=== PATIENT | male | born 1945 | race Caucasian/White ===

== ENCOUNTER 2017-07-03 15:13 | Inpatient (IN) | payer MEDICARE, SELFPAY ==
[2017-07-03] VITALS (13 sets, daily range): BP systolic 125–152; BP diastolic 70–80; PULSE 102–111; RESP 18–34; TEMP 37.2–37.7; O2SAT 85–96; BMI 33.0; BMI 32.4
--- NOTE | 2017-07-03 15:21 | RAD_ITS ---
STUDY: X-RAY CHEST REASON FOR EXAM: Male, 71 years old. Fall TECHNIQUE: Single frontal view of the chest. COMPARISON: 05/23/2015 FINDINGS: The lungs are clear and expanded. There is no demonstrated pleural abnormality. Normal size heart. Normal mediastinum and alfonso. Normal visualized pulmonary arteries. Normal visualized aortic arch and descending thoracic aorta. Normal visualized thoracic spine. Normal visualized ribs, clavicles, and shoulders. There is no demonstrated abnormality of the visualized soft tissue structures of the upper abdomen. RAD/Chest 1 View (Portable) IMPRESSION: Normal x-ray examination of the chest. Electronically Signed: Wayne Soria MD at 15:48 EDT Tel , Service support ,
--- NOTE | 2017-07-03 15:22 | EKG12_ITS ---
Test Reason : Blood Pressure : / mmHG Vent. Rate : 109 BPM Atrial Rate : 109 BPM P-R Int : 196 ms QRS Dur : 100 ms QT Int : 328 ms P-R-T Axes : 068 -73 054 degrees QTc Int : 441 ms Sinus tachycardia with occasional Premature ventricular complexes Left axis deviation Abnormal ECG Confirmed by SHAWANDA BLANC, MARILYN ([id number]), editor publications REBEKAH MAYS ([id number]) on 07/07/2017 1:17:24 PM Referred By: GRANT/CAT Confirmed By:MARILYN MAYBERRY MD
--- NOTE | 2017-07-03 15:28 | RAD_ITS ---
STUDY: X-RAY - PELVIS REASON FOR EXAM: Male, 71 years old. Fall. TECHNIQUE: One view of the pelvis was obtained. COMPARISON: None. FINDINGS: There is a non-specific bowel gas pattern. Normal visualized soft tissue structures. Normal bilateral iliac wings, sacroiliac joints and visualized sacrum. Normal visualized bilateral superior and inferior pubic rami. Normal pubic symphysis. Normal ischial tuberosities. Satisfactory appearance of right hip arthroplasty although the entire femoral stem is not seen. Normal visualized left femoral head. Normal left acetabulum. Normal left hip joint. RAD/Pelvis 1 or 2 Views IMPRESSION: No acute abnormality. Electronically Signed: Isaak Mario MD at 17:00 EDT , Service support ,
--- NOTE | 2017-07-03 15:28 | CT_ITS ---
STUDY: CT CERVICAL SPINE WITHOUT CONTRAST REASON FOR EXAM: Male, 71 years old. Fall. RADIATION DOSAGE (If Supplied By Facility): CTDIvol = ( 26.87 ) mGy, DLP = ( 602.34 ) mGycm TECHNIQUE: High resolution transaxial imaging was performed without contrast material. Sagittal and coronal images were reconstructed. Individualized dose optimization techniques were used for this CT. COMPARISON: None FINDINGS: Exam is limited by motion. No definite acute fracture/dislocation. The cervical junction is intact. C1-C2 articulation is intact. There is straightening. There is normal alignment. Facet joints are intact at all levels bilaterally. No jumped facets. There is mild multilevel spondyloarthropathy. Multilevel mild degenerative disc disease seen. Multilevel mild loss of disc height. Multilevel posterior marginal osteophytes and disc bulges. Multilevel neural foraminal narrowing. Visualized paraspinal soft tissues and structures are unremarkable. CT/Spine Cervical without Contras IMPRESSION: Limited by patient movement. There is no definite acute fracture/dislocation. Degenerative changes. Electronically Signed: Isaak Mario MD at 16:59 EDT , Service support ,
--- NOTE | 2017-07-03 15:28 | CT_ITS ---
STUDY: CT BRAIN WITHOUT CONTRAST REASON FOR EXAM: Male, 71 years old. Fall. RADIATION DOSAGE (If Supplied By Facility): CTDIvol = ( 44.99 ) mGy, DLP = ( 863.60 ) mGycm TECHNIQUE: Transaxial CT imaging of the brain was performed without administration of intravenous contrast material. Individualized dose optimization techniques were used for this CT. COMPARISON: None. FINDINGS: Normal soft tissue structures. Normal calvarium. Normal size ventricles and extra-axial spaces for the patient's age. Normal white matter tracts of the cerebral hemispheres. Normal basal ganglia and thalami. Normal brainstem. Normal cerebellum. There is no intracranial hemorrhage. There are no findings of an acute ischemic infarction. Normal visualized paranasal sinuses. CT/Brain/Head without Contrast IMPRESSION: Normal unenhanced CT scan of the brain. Electronically Signed: Isaak Mario MD at 16:56 EDT , Service support ,
--- NOTE | 2017-07-03 15:29 | ED.VISSUMM ---
- ER Visit Summary Date of Service: 07/03/17 Chief Complaint: Fall History of Present Illness: The patient is a 71 M presenting after fall. Patient states he slid out of bed on Friday night. He was stuck between his bed and the wall. He was unable to get up. He laid on the floor for 2 days. He states his brother came to check on him today and called EMS. He states he did urinate on himself because he was unable to get up. Denies any injury with the fall. Denies chest pain. Physical Examination: Vitals are stable. Temperature 99.2 alert no acute distress. Pulse ox 85% on room air HEENT exam dry mucous membranes Neck is mild diffuse tenderness Lungs are diminished bilaterally. Heart is regular rate and rhythm. Abdomen is soft nontender nondistended. No rebound or guarding Extremities are unremarkable. Skin is warm and dry. No focal neurologic deficit. Remainder of exam is unremarkable. Emergency Department Course and Treatment: EKG is sinus rate of 109 with PVCs. Chest x-ray shows no acute process. CBC shows white count 13.4, hemoglobin 12.0. BUN is 33. Troponin is indeterminate 0.22. CK is 3511. Lactic acid is normal. Patient is given IV fluids. Pelvis x-ray shows no acute process. CT head and neck show no acute process. Discussed with the hospitalist for admission. Disposition: Admission Impression: Generalized weakness, indeterminate troponin, rhabdomyolysis This note was generated with [employer] dictation software. It may contain incorrect words, spelling, and punctuation that were not noted in review of the chart prior to signing ED Disposition - Plan for ED Patient: Chief Complaint: Fall Referrals: [facility] Doctor,Out of [Primary Care Provider] -
[2017-07-03 16:13] LABS: Anion Gap 8 (5-15); BUN 33 mg/dL (7-18); BUN/Creat Ratio 31.1 RATIO (10-20); Calcium,Total 8.5 mg/dL (8.5-10.1); Chloride 101 mmol/L (98-107); Creatinine, Serum 1.06 mg/dL (0.70-1.30); EST Glomerular Filtration Rate 73 mL/min (>60); Est Glom Filt Rate - Afr Amer 89 mL/min (>60); Estimated Creatinine Clearance 67.91 ml/min; Glucose 102 mg/dL (74-106); Potassium 3.7 mmol/L (3.5-5.1); Sodium Level 137 mmol/L (136-145)
[2017-07-03 16:20] LABS: Lactic Acid 1.5 mmol/L (0.4-2.0)
[2017-07-03 16:22] LABS: Bacteria 0 SEEN /hpf (None Seen); Mucous, Urine 0 SEEN /hpf (<or=2+); White Blood Cells 0 SEEN /hpf (0-5)
[2017-07-03 16:25] LABS: Color, Urine Yellow (Yellow); Glucose, Dipstick Normal (Normal); Ketone-Dipstick Negative (Negative); Leukocyte Esterase-Dipstick Negative /ul (Negative); Nitrite-Dipstick Negative (Negative); Occult Blood-Urine 250 /ul (Negative); Protein-Dipstick 100 mg/dl (Negative); Specific Gravity, Urine 1.025 (1.002-1.030); Urine Bilirubin Dipstick Negative (Negative); Urine Clarity Sl. Cloudy (Clear); Urine Urobilinogen Normal (Normal)
[2017-07-03 16:27] LABS: CPK Total, Creatine Kinase 3511 U/L (39-308)
[2017-07-03 16:30] LABS: Absolute Lymphocyte Count 1.86 X10^3/ul (0.83-4.51); Basophil# 0.05 X10^3/uL; Basophil% 0.4 % (0-1); Hematocrit 38.5 % (40-54); Lymphocyte # 1.86 X10^3/ul (4.0); Lymphocyte % 13.8 % (19-41); Mean Corp Hgb Conc 31.2 g/gl (32-36); Mean Corpuscular Hgb 23.1 pg (27.0-32.0); Mean Corpuscular Volume 74.2 fL (80-94); Mean Platelet Vol. 10.3 fl (6.2-12.0); Monocyte# 1.53 X10^3/uL; Monocyte% 11.4 % (0-10); Neutrophil # 9.97 X10^3/uL (2.7-7.7); Neutrophil % 74.3 % (47-70); Platelet Count 315 K/mm3 (150-450); RBC Distribution Width CV 19.1 % (11.6-14.6); RBC Distribution Width SD 49.7 fl (35.1-43.9); Red Blood Count 5.19 M/mm3 (4.6-6.2); White Blood Count 13.4 K/mm3 (4.4-11.0)
[2017-07-03 16:31] LABS: Differential Indicated SCAN CRITERIA MET; POSITIVE COUNT NO; POSITIVE DIFFERENTIAL YES; POSITIVE MORPHOLOGY NO
[2017-07-03 16:48] LABS: Red Blood Cells-Urine 5-10 SEEN /hpf (0-5); Squamous Epithelial Cells - UA 0-5 SEEN /hpf (0-5)
[2017-07-03 16:49] LABS: Amorphous Sediment 1+ URATE
--- NOTE | 2017-07-03 17:06 | PCM.HP.STD ---
Problem List (1) Abnormal CT of the chest Status: Chronic (2) Chronic back pain Status: Chronic (3) Hemolytic anemia Status: Chronic (4) Right acetabular fracture Status: Resolved (5) Depression Status: Chronic (6) Hypertension Status: Chronic (7) Hypothyroid Status: Chronic (8) Osteoporosis Status: Chronic History of Present Illness Date of Admission: 07/03/17 Chief Complaint: Weakness, fall. The patient is a 71 year old M who presents to the emergency room after patient's brother found him on the floor in his bedroom. Patient states Friday or Friday night he was going to bed and somehow missed the bed and fell on the floor and between the wall in bed. He was too weak to get himself up. His brother stopped by to visit today and found him in the same position following his fall. Patient states he has had ongoing progressive weakness since previous admission in 2015 where he had mechanical fall which resulted in right hip fracture. Patient's brother at bedside states patient is unable to care for himself properly. Concerned about patient returning home. Discussed with patient possible need for rehab/SNF at discharge and patient states he will refuse. Wishes to return home. Patient has chronic cough. He is pack per day smoker. He states he is chronically short of breath as well. Aside from generalized weakness, patient denies any significant complaints. CODE STATUS discussed with patient and he wishes to be a full code and states he wants everything done. His past medical history includes hypertension, hypothyroidism, BPH, osteoporosis, depression, chronic anemia, COPD, diastolic CHF. Past Medical History Past Medical History (Chronic Problems): Chronic Problems Abnormal CT of the chest (Chronic) Hemolytic anemia (Chronic) Chronic back pain (Chronic) Osteoporosis (Chronic) Depression (Chronic) Hypothyroid (Chronic) Hypertension (Chronic) Allergies acyclovir Allergy (Verified 12/05/15 13:25) Swelling doxycycline Allergy (Verified 12/07/15 13:57) MAKES ME [employer]NG gabapentin Allergy (Verified 12/05/15 13:25) Swelling Home Medications: Ambulatory Orders Medication Instructions Recorded Multivitamins,Therapeutic 1 tablet PO DAILY 05/21/15 [Multivitamin] Cholecalciferol (VIT D3) [Vitamin 2,000 unit PO DAILY 12/05/15 D] Furosemide [Lasix] 40 mg PO DAILY 12/05/15 Hydrocodone/Acetaminophen 1 each PO Q6H PRN PRN 12/05/15 [Hydrocodon-Acetaminophen 5-325] Ibuprofen [Motrin] 400 mg PO Q6H PRN PRN 12/05/15 Finasteride [Proscar] 5 mg PO DAILY 07/03/17 Levothyroxine Sodium [Synthroid] 150 mcg PO DAILY 07/03/17 Surgical History: cholecystectomy, - - spleenectomy 1969, bilateral cataract, right hip repair Psychiatric History: Depression Lives: Alone Smoking Status: Current every day smoker Tobacco Use: Cigarettes - 1 pack per day Alcohol: Rare Drugs: None - *Family History Maternal History Items: Heart Disease - CHF, - - osteoarthritis Paternal History Items: Stroke - Brain aneurysm, - - hemolytic anemia, black lung diesase, coal conveyor operator Sibling History Items: Hypertension, Pulmonary Disease Review of Systems Constitutional: Reports: Fatigue. Denies: Chills, Fever Eyes: Reports: Blurred vision - Chronic HEENT: Denies: Head Aches, Sinus Congestion, Sinus Drainage Cardiovascular: Denies: Chest Pain, Edema, Palpitations, Syncope Respiratory: Reports: Cough - Chronic, Shortness of Breath, Wheezing. Denies: Sputum production Gastrointestinal: Denies: Abdominal Pain, Constipation, Diarrhea, Nausea, Vomiting Genitourinary: Denies: Dysuria Musculoskeletal: Reports: Joint stiffness. Denies: Joint Pain, Joint Tenderness Skin: Reports: Dryness - Chronic, bilateral lower extremities Neurological: Denies: Numbness, Tingling, Focal weakness Psychiatric: Reports: Depression Hematologic/ Lymphatic: Denies: Easy Bruising, Easy Bleeding VTE Information - Inpt Only VTE Present on Admission: No VTE Mechan Device Prophylaxis: SCD's VTE Pharm Prophylaxis ordered?: Yes - Physical Exam General: Alert, Oriented x3, Cooperative, - - Appears unkempt HEENT: - - Erythema of sclera bilaterally Oral: Dry Mucosa, - - Poor dentition Neck: Supple, No JVD, Negative Carotid Bruits Lungs: Diminished, Rhonchi, Wheezes Cardiovascular: Regular Rhythm, Normal S1, Normal S2, No murmurs, Tachycardic Abdomen: Bowel Sounds Present, Soft, Non Tender, Non-Distended Extremities: No clubbing, No cyanosis, No edema, Capillary Refill Less than 3 Seconds Skin: No rashes, No breakdown, - - Dryness bilateral lower extremities Musculoskeletal: No Tenderness to Palpation of Joints or Extremities Neurological: Cranial nerves II-XII grossly intact Psych/Mental Status: Normal Affect, Appropriate Vital Signs Temp Pulse Resp BP Pulse Ox 99.2 F H 108 H 30 H 141/80 H 94 07/03/17 15:14 07/03/17 16:00 07/03/17 16:00 07/03/17 16:00 07/03/17 16:01 Oxygen Flow Rate (L/min) 4 Oxygen Delivery Method Nasal Cannula Weight: 104.326 kg Body Mass Index (BMI) 33.0 Laboratory Tests Past 24 Hrs 07/03/17 07/03/17 07/03/17 15:35 15:35 15:35 WBC 13.4 H RBC 5.19 Hgb 12.0 L Hct 38.5 L MCV 74.2 L MCH 23.1 L MCHC 31.2 L RDW 19.1 H RDW Differential 49.7 H Plt Count 315 MPV 10.3 Immature Gran % (Auto) 0.100 Neut % (Auto) 74.3 H Lymph % (Auto) 13.8 L [place] % (Auto) 11.4 H Eos % (Auto) 0.0 Baso % (Auto) 0.4 Absolute Neuts (auto) 10.0 H Absolute Lymphs (auto) 1.86 Total Counted Pending Sodium 137 Potassium 3.7 Chloride 101 Carbon Dioxide 28.0 Anion Gap 8 BUN 33 H Creatinine 1.06 Estim Creat Clear Calc 67.91 Est GFR (MDRD) Af Amer 89 Est GFR (MDRD) Non-Af 73 BUN/Creatinine Ratio 31.1 H Glucose 102 Lactic Acid 1.5 Calcium 8.5 Total Creatine Kinase Troponin I 0.22 H Urine Color Urine Clarity Urine pH Ur Specific [place] Urine Protein Urine Glucose (UA) Urine Ketones Urine Occult Blood Urine Nitrite Urine Bilirubin Urine Urobilinogen Ur Leukocyte Esterase Urine RBC Urine WBC Ur Squamous Epith Cells Amorphous Sediment Urine Bacteria Urine Mucus 07/03/17 07/03/17 15:35 16:15 WBC RBC Hgb Hct MCV MCH MCHC RDW RDW Differential Plt Count MPV Immature Gran % (Auto) Neut % (Auto) Lymph % (Auto) [place] % (Auto) Eos % (Auto) Baso % (Auto) Absolute Neuts (auto) Absolute Lymphs (auto) Total Counted Sodium Potassium Chloride Carbon Dioxide Anion Gap BUN Creatinine Estim Creat Clear Calc Est GFR (MDRD) Af Amer Est GFR (MDRD) Non-Af BUN/Creatinine Ratio Glucose Lactic Acid Calcium Total Creatine Kinase 3511 H Troponin I Urine Color Yellow Urine Clarity Sl. Cloudy Urine pH 5.0 Ur Specific [place] 1.025 Urine Protein 100 H Urine Glucose (UA) Normal Urine Ketones Negative Urine Occult Blood 250 H Urine Nitrite Negative Urine Bilirubin Negative Urine Urobilinogen Normal Ur Leukocyte Esterase Negative Urine RBC 5-10 SEEN Urine WBC 0 SEEN Ur Squamous Epith Cells 0-5 SEEN Amorphous Sediment 1+ URATE Urine Bacteria 0 SEEN Urine Mucus 0 SEEN Assessment/Plan 1. Acute rhabdomyolysis-secondary to lying on for for 2-3 days. CK on admission 3511. IV fluids. Trend CK. 2. Mechanical fall, prior to admission/physical debility/weakness-denies injury from fall. Patient has history of falls. Lives home alone. PT/OT. UA unremarkable. Low-grade temperature on admission. WBC mildly elevated, 13.2. Chest x-ray unremarkable. Patient shows signs of mild dehydration. IV fluids as noted above. CT of cervical spine shows no acute fracture or dislocation. X-ray of pelvis shows no acute abnormality. Brain CT normal. Case management consult for discharge planning. Fall precautions. 3. Indeterminate troponin-troponin 0.22 on admission. EKG sinus rhythm without ST T changes. Trend enzymes. Repeat EKG in a.m. Patient denies chest pain. 4. Acute hypoxia, suspect secondary to underlying COPD-patient has had episodes of hypoxia in the past during admission which were noted due to chronic lung disease. Chest CTA May 2015 showed pulmonary emphysema. Patient has never had any formal testing for COPD. Repeat CTA. Continue supplemental oxygen to maintain O2 at or above 90%. Albuterol and DuoNeb aerosols. IS/PEP. HOB parameters. Chest x-ray unremarkable as noted above. 5. 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 6. Chronic diastolic CHF-hold home Lasix regimen given mild dehydration. Previous echocardiogram May 2015 showed an ejection fraction of 50%, mild tricuspid valve insufficiency. Left ventricular systolic function lower limits of normal. Repeat echocardiogram. 7. BPH-continue home Proscar regimen. 8. Chronic hemolytic anemia-status post splenectomy. Stable. 9. Hypothyroidism-continue home Synthroid regimen. Check TSH. 10. Tobacco dependence-current pack per day smoker. Patient has no plans of quitting. Encourage smoking cessation. Nicotine replacement patch if desired. 11. Osteoporosis-history of vertebral compression fractures. Continue vitamin D supplementation. 12. Depression-patient is very unkempt. Not on home regimen. Recommend outpatient follow-up. DVT prophylaxis-SCDs, Lovenox subcu. This patient was seen by RUSLAN Le under the supervision of Dr. Bonner.
[2017-07-03 17:32] LABS: Differential Comment SCANNED
[2017-07-03 17:33] LABS: Absolute Nucleated RBC Count 0.41 10^3/uL (0-5)
[2017-07-03] MEDS: 0.9% Normal Saline 1,000 ML 999 ML IV (17:37)
[2017-07-03 19:00] LABS: Magnesium 2.4 mg/dL (1.6-2.6); Thyroid Stim Hormone (TSH) 4.62 uIU/mL (0.358-3.74)
[2017-07-03 19:05] LABS: D-Dimer Quantitative (DVT/PE) 1.45 FEU/ug/m (0.27-0.49)
--- NOTE | 2017-07-03 19:48 | CT_ITS ---
STUDY: CTA CHEST REASON FOR EXAM: Male, 71 years old. Hypoxia and fall RADIATION DOSAGE (If Supplied By Facility): CTDIvol = ( 22.94 ) mGy, DLP = ( 974.90 ) mGycm TECHNIQUE: The examination was performed with the intravenous administration of 100 ml of Isovue 370 contrast material. Post-processing of the angiographic images was performed, with multiplanar reformation and 3D reconstruction. Individualized dose optimization techniques were used for this CT. COMPARISON: July 03, 2017 chest radiograph FINDINGS: A few scattered nonenlarged mediastinal lymph nodes seen. Gynecomastia also appreciated. Nonenlarged axillary lymph nodes. Pulmonary artery and its branches demonstrate no definite evidence for filling defects to suggest pulmonary embolus. Coronary vascular calcifications. Atherosclerotic vascular calcifications of the aorta. No pericardial effusion. No lung consolidation or pneumothorax Prior cholecystectomy Hepatic steatosis The spleen is not visualized Nodular density noted adjacent to the stomach possibly a splenule however this is not well characterized on the current CT examination of the chest. Degenerative changes in the thoracic spine with compression fractures of a T11 and T12 vertebral body with mild retropulsion of the posterior superior cortex of T12 vertebral body of indeterminate age. Mild compression deformity of the T8 vertebral body also seen. Mild L1 compression deformity also seen Subsegmental atelectasis in the lung bases. Ill-defined nodule in the right lower lobe measuring approximately 5 mm which needs follow-up assessment in 3-6 months. There are likely bilateral emphysematous changes present. IMPRESSION: No definite evidence for pulmonary embolus. No evidence for aortic dissection. compression fractures of a T11 and T12 vertebral body with mild retropulsion of the posterior superior cortex of T12 vertebral body of indeterminate age possibly acute. Approximately 50% loss of vertebral body height at T12 level noted Mild compression deformity of the T8 vertebral body also seen. COPD Ill-defined nodule in the right lower lobe measuring approximately 5 mm which needs follow-up assessment in 3-6 months. There are likely bilateral emphysematous changes present. Electronically Signed: Brayan Lewis, at 20:57 EDT Tel , Service support , CT/CTA Chest W/WO Contrast
[2017-07-03] MEDS: Famotidine 20 MG Tablet PO (21:35)
[2017-07-03] MEDS: Senna/Docusate Sodium 1 Tablet 2 TABLET PO (21:35)
[2017-07-03] MEDS: MethylPREDNISolone 125 MG/2 ML Vial 60 MG IV (21:36)
[2017-07-03] MEDS: 0.9% Normal Saline 1,000 ML 150 ML IV (21:36)
[2017-07-03 21:54] LABS: T4 Free Direct 0.74 ng/dL (0.76-1.46)
[2017-07-03] MEDS: Ipratropium/Albuterol Sulfate 3 ML AMPUL.NEB INHALATION (21:54)
[2017-07-04] VITALS (20 sets, daily range): BP systolic 115–143; BP diastolic 57–83; PULSE 86–102; RESP 16–28; TEMP 36.3–37.8; O2SAT 93–96
[2017-07-04] MEDS: Ipratropium/Albuterol Sulfate 3 ML AMPUL.NEB INHALATION ×5 (00:54→18:58)
[2017-07-04] MEDS: 0.9% Normal Saline 1,000 ML 150 ML IV (04:37)
[2017-07-04 05:49] LABS: Hematocrit 38.7 % (40-54); Hemoglobin 11.9 g/dl (13.0-16.5); Mean Corp Hgb Conc 30.7 g/gl (32-36); Mean Corpuscular Hgb 23.3 pg (27.0-32.0); Mean Corpuscular Volume 75.7 fL (80-94); Mean Platelet Vol. 9.9 fl (6.2-12.0); Platelet Count 281 K/mm3 (150-450); RBC Distribution Width CV 19.3 % (11.6-14.6); RBC Distribution Width SD 52.3 fl (35.1-43.9); Red Blood Count 5.11 M/mm3 (4.6-6.2)
--- NOTE | 2017-07-04 05:55 | EKG12_ITS ---
Test Reason : MORNIG EKG Blood Pressure : / mmHG Vent. Rate : 090 BPM Atrial Rate : 090 BPM P-R Int : 192 ms QRS Dur : 100 ms QT Int : 358 ms P-R-T Axes : 058 -62 038 degrees QTc Int : 437 ms Normal sinus rhythm Left anterior fascicular block Abnormal ECG When compared with ECG of 03-JUL-2017 15:34, MANUAL COMPARISON REQUIRED, DATA IS UNCONFIRMED Confirmed by SHAWANDA BLANC, MARILYN ([id number]), editor managing newspaper REBEKAH MAYS ([id number]) on 07/07/2017 1:55:48 PM Referred By: MAURY Confirmed By:MARILYN MAYBERRY MD
[2017-07-04 06:02] LABS: Differential Indicated MANUAL DIFF; POSITIVE COUNT YES; POSITIVE DIFFERENTIAL NO; POSITIVE MORPHOLOGY YES
[2017-07-04] MEDS: 0.9% NaCl Peripheral Flush Adult/Peds IV ×2 (06:07→23:17)
[2017-07-04] MEDS: Levothyroxine 150 MCG Tablet PO (06:07)
[2017-07-04] MEDS: MethylPREDNISolone 125 MG/2 ML Vial 60 MG IV ×3 (06:07→23:16)
[2017-07-04 06:29] LABS: ALB/GLOB Ratio 0.9 RATIO (0.9-2.4); AST(SGOT) 130 U/L (15-37); Alanine Aminotransfer ALT/SGPT 74 U/L (16-61); Albumin, Serum 3.2 g/dL (3.2-5.0); Alkaline Phosphatase 44 U/L (45-117); Anion Gap 5 (5-15); BUN 24 mg/dL (7-18); BUN/Creat Ratio 30.9 RATIO (10-20); CPK Total, Creatine Kinase 3293 U/L (39-308); Calcium,Total 7.4 mg/dL (8.5-10.1); Chloride 105 mmol/L (98-107); Cholesterol 90 mg/dL (200); Creatinine, Serum 0.78 mg/dL (0.70-1.30); EST Glomerular Filtration Rate 105 mL/min (>60); Est Glom Filt Rate - Afr Amer 127 mL/min (>60); Estimated Creatinine Clearance 71.99 ml/min; Globulin 3.6 g/dL (2.2-4.2); Glucose 153 mg/dL (74-106); High Density Lipoprotein 34 mg/dL; Potassium 4.4 mmol/L (3.5-5.1); Protein, Total 6.8 g/dL (6.4-8.2); Sodium Level 137 mmol/L (136-145); Triglycerides 73 mg/dL; Very Low Density Lipoprotein 15 mg/dL (5-40)
[2017-07-04 07:07] LABS: Lymphocyte 6 % (19-41); Monocyte 6 % (0-10); Neutrophil-Band 3 % (0-5); Neutrophil-Segmented 85 % (47-70); Total Cells Counted 100 (MANUAL DIFF)
[2017-07-04 07:08] LABS: Anisocytosis 1+; Hypochromasia 1+; Platelet Estimate ADEQUATE (ADEQ); Platelet Morphology LARGE; Polychromasia 2+
[2017-07-04 07:09] LABS: Basophilic Stippling 1+
[2017-07-04 07:11] LABS: Absolute Lymphocyte Count 0.68 X10^3/ul (0.83-4.51); Absolute Neutrophil Count 9.9 X10^3/uL (2.0-7.7)
[2017-07-04 07:23] LABS: Absolute Nucleated RBC Count 0.94 10^3/uL (0-5); Corrected WBC 11.3 K/mm3 (4.4-11.0); NRBC Flagged by Analyzer 8.3 % (0-5)
[2017-07-04] MEDS: Finasteride 5 MG Tablet PO (10:10)
[2017-07-04] MEDS: Aspirin 81 MG TAB.CHEW PO (10:11)
[2017-07-04] MEDS: Famotidine 20 MG Tablet PO ×2 (10:11→23:15)
[2017-07-04] MEDS: Multivitamins,Therapeutic Tablet 1 TABLET PO (10:11)
--- NOTE | 2017-07-04 10:36 | PCM.PROGNOTE ---
<Hodan Lopez - Last Filed: 07/04/17 11:18> Subjective: Patient seen and examined. Denies significant shortness of breath. Complains of intermittent nonproductive cough. Denies fever, chills. He is worried about getting to his nieces wedding in a week. He is agreeable to further therapy at transitional care unit. Denies other complaints. - Physical Exam General: Alert, Oriented x3, Cooperative HEENT: Atraumatic, PERRLA, EOMI, Normocephalic Oral: Dry Mucosa, - - Poor dentition Neck: Supple, No JVD, Negative Carotid Bruits Lungs: Diminished, Wheezes Cardiovascular: Regular rate, Regular Rhythm, Normal S1, Normal S2, No murmurs Abdomen: Bowel Sounds Present, Soft, Non Tender, Non-Distended Extremities: No clubbing, No cyanosis, No edema, Capillary Refill Less than 3 Seconds Skin: No rashes, No breakdown, - - Diagnosis bilateral lower extremities Musculoskeletal: No Tenderness to Palpation of Joints or Extremities Neurological: Cranial nerves II-XII grossly intact, Neuro grossly intact Psych/Mental Status: Normal Affect, Appropriate Vital Signs Temp Pulse Resp BP Pulse Ox 98.2 F 87 20 H 128/77 H 94 07/04/17 07:55 07/04/17 07:55 07/04/17 07:55 07/04/17 07:55 07/04/17 07:55 Oxygen Flow Rate (L/min) 6 Oxygen Delivery Method Nasal Cannula Weight: 105.3 kg Body Mass Index (BMI) 32.4 Intake and Output for Last 24 Hours 07/02/17 07/03/17 07/04/17 23:59 23:59 23:59 Intake Total 1989 Output Total 1050 / 1050 Balance 940 / 940 Laboratory Tests Past 24 Hrs 07/03/17 07/03/17 07/03/17 20:57 20:57 23:24 WBC Corrected WBC RBC Hgb Hct MCV MCH MCHC RDW RDW Differential Plt Count MPV Neut % (Auto) Absolute Neuts (auto) Absolute Lymphs (auto) Total Counted Neutrophils % (Manual) Band Neutrophils % Lymphocytes % (Manual) Monocytes % (Manual) Nucleated RBC % Diff Path Review Platelet Estimate Plt Morphology Comment Polychromasia Hypochromasia Basophilic Stippling Anisocytosis Absolute Retic Sodium Potassium Chloride Carbon Dioxide Anion Gap BUN Creatinine Estim Creat Clear Calc Est GFR (MDRD) Af Amer Est GFR (MDRD) Non-Af BUN/Creatinine Ratio Glucose Calcium Total Bilirubin AST ALT Alkaline Phosphatase Total Creatine Kinase Troponin I 0.26 H 0.23 H Total Protein Albumin Globulin Albumin/Globulin Ratio Triglycerides Cholesterol LDL Cholesterol VLDL Cholesterol HDL Cholesterol Free T4 0.74 L 07/04/17 07/04/17 05:20 05:20 WBC INTERNAL CONTROLS ANALYST Corrected WBC 11.3 H RBC 5.11 Hgb 11.9 L Hct 38.7 L MCV 75.7 L MCH 23.3 L MCHC 30.7 L RDW 19.3 H RDW Differential 52.3 H Plt Count 281 MPV 9.9 Neut % (Auto) Not Reportable Absolute Neuts (auto) 9.9 H Absolute Lymphs (auto) 0.68 L Total Counted 100 Neutrophils % (Manual) 85 H Band Neutrophils % 3 Lymphocytes % (Manual) 6 L Monocytes % (Manual) 6 Nucleated RBC % 8.3 H Diff Path Review May foll Platelet Estimate ADEQUATE Plt Morphology Comment LARGE Polychromasia 2+ Hypochromasia 1+ Basophilic Stippling 1+ Anisocytosis 1+ Absolute Retic 0.94 Sodium 137 Potassium 4.4 Chloride 105 Carbon Dioxide 27.0 Anion Gap 5 BUN 24 H Creatinine 0.78 Estim Creat Clear Calc 71.99 Est GFR (MDRD) Af Amer 127 Est GFR (MDRD) Non-Af 105 BUN/Creatinine Ratio 30.9 H Glucose 153 H Calcium 7.4 L Total Bilirubin 1.00 AST 130 H ALT 74 H Alkaline Phosphatase 44 L Total Creatine Kinase 3293 H Troponin I 0.14 H Total Protein 6.8 Albumin 3.2 Globulin 3.6 Albumin/Globulin Ratio 0.9 Triglycerides 73 Cholesterol 90 LDL Cholesterol 41 VLDL Cholesterol 15 HDL Cholesterol 34 L Free T4 Medical Necessity - Tobacco Use Smoking Status: Current every day smoker Tobacco Use: Cigarettes - 1 pack per day Assessment/Plan 1. Acute rhabdomyolysis-secondary to lying on for for 2-3 days. CK on admission 3511. Slightly improved. Continue IV fluids. Trend CK. 2. Mechanical fall, prior to admission/physical debility/weakness-denies injury from fall. Patient has history of falls. Lives home alone. PT/OT. UA unremarkable. Low-grade temperature on admission. WBC mildly elevated, 13.2. Chest x-ray unremarkable. Patient shows signs of mild dehydration. IV fluids as noted above. CT of cervical spine shows no acute fracture or dislocation. X-ray of pelvis shows no acute abnormality. Brain CT normal. Plan for TCU at discharge pending pre-CERT. 3. Indeterminate troponin-troponin 0.22, 0.23, 0.14 on admission. EKG sinus rhythm without ST T changes. Patient denies chest pain. Repeat EKG this morning again without ST-T changes. Suspect demand ischemia related to acute hypoxia, COPD exacerbation. Continue aspirin. Fasting lipid panel within normal limits. 4. Acute hypoxia secondary to acute on chronic COPD exacerbation secondary to acute influenza A-patient has had episodes of hypoxia in the past during admission which were noted due to chronic lung disease. Chest CTA May 2015 showed pulmonary emphysema. Patient has never had any formal testing for COPD. Repeat CTA demonstrates no pulmonary embolus, hepatic steatosis, degenerative changes in the thoracic spine with compression fractures of T11 and T12, mild compression deformity of the T1 and T8 vertebral body, ill-defined nodule in the right lower lobe measuring approximately 5 mm, COPD. Lung nodule will need further imaging in 3-6 months. Continue supplemental oxygen to maintain O2 at or above 90%. Albuterol and DuoNeb aerosols. IS/PEP. HOB parameters. Chest x-ray unremarkable. Continue IV Solu-Medrol. Initiate Tamiflu. Discontinue azithromycin. Patient will need outpatient follow-up with pulmonary medicine. Complete walking pulse ox prior to discharge. 5. 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 6. Chronic diastolic CHF-hold home Lasix regimen given mild dehydration. Previous echocardiogram May 2015 showed an ejection fraction of 50%, mild tricuspid valve insufficiency. Left ventricular systolic function lower limits of normal. Repeat echocardiogram pending. 7. BPH-continue home Proscar regimen. 8. Chronic hemolytic anemia-status post splenectomy. Stable. 9. Hypothyroidism-continue home Synthroid regimen. 10. Tobacco dependence-current pack per day smoker. Patient has no plans of quitting. Encourage smoking cessation. Nicotine replacement patch if desired. 11. Osteoporosis-history of vertebral compression fractures. Continue vitamin D supplementation. 12. Depression-patient is very unkempt. Not on home regimen. Recommend outpatient follow-up. Discharge planning-patient agreeable to TCU at discharge. DVT prophylaxis-SCDs, Lovenox subcu. This patient was seen by RUSLAN Le under the supervision of Dr. Mack. <Jose Mack - Last Filed: 07/04/17 17:48> Subjective: Seen and examined. Agree with the above findings. Patient has influenza a, subtype H3. He is having cough. - Physical Exam Lungs: Diminished, Wheezes, - - Shortness of breath on exertion Vital Signs Temp Pulse Resp BP Pulse Ox 98.5 F 102 H 20 H 122/69 H 94 07/04/17 11:55 07/04/17 15:00 07/04/17 14:18 07/04/17 11:55 07/04/17 11:55 Oxygen Flow Rate (L/min) 6 Oxygen Delivery Method Nasal Cannula Weight: 232 lb 2.348 oz Body Mass Index (BMI) 32.4 Intake and Output for Last 24 Hours 07/02/17 07/03/17 07/04/17 23:59 23:59 23:59 Intake Total 3447 / 3447 Output Total 1500 / 1500 Balance 1947 / 1947 Microbiology Past 72 Hours 07/03/17 20:08 Respiratory Panel (PCR) - Final Mucosa - Nose Influenza A (Subtype H3) Laboratory Tests Past 24 Hrs 07/03/17 07/03/17 07/03/17 20:57 20:57 23:24 WBC Corrected WBC RBC Hgb Hct MCV MCH MCHC RDW RDW Differential Plt Count MPV Neut % (Auto) Absolute Neuts (auto) Absolute Lymphs (auto) Total Counted Neutrophils % (Manual) Band Neutrophils % Lymphocytes % (Manual) Monocytes % (Manual) Nucleated RBC % Diff Path Review Platelet Estimate Plt Morphology Comment Polychromasia Hypochromasia Basophilic Stippling Anisocytosis Absolute Retic Sodium Potassium Chloride Carbon Dioxide Anion Gap BUN Creatinine Estim Creat Clear Calc Est GFR (MDRD) Af Amer Est GFR (MDRD) Non-Af BUN/Creatinine Ratio Glucose Calcium Total Bilirubin AST ALT Alkaline Phosphatase Total Creatine Kinase Troponin I 0.26 H 0.23 H Total Protein Albumin Globulin Albumin/Globulin Ratio Triglycerides Cholesterol LDL Cholesterol VLDL Cholesterol HDL Cholesterol Free T4 0.74 L 07/04/17 07/04/17 05:20 05:20 WBC INTERNAL CONTROLS ANALYST Corrected WBC 11.3 H RBC 5.11 Hgb 11.9 L Hct 38.7 L MCV 75.7 L MCH 23.3 L MCHC 30.7 L RDW 19.3 H RDW Differential 52.3 H Plt Count 281 MPV 9.9 Neut % (Auto) Not Reportable Absolute Neuts (auto) 9.9 H Absolute Lymphs (auto) 0.68 L Total Counted 100 Neutrophils % (Manual) 85 H Band Neutrophils % 3 Lymphocytes % (Manual) 6 L Monocytes % (Manual) 6 Nucleated RBC % 8.3 H Diff Path Review Reviewed Platelet Estimate ADEQUATE Plt Morphology Comment LARGE Polychromasia 2+ Hypochromasia 1+ Basophilic Stippling 1+ Anisocytosis 1+ Absolute Retic 0.94 Sodium 137 Potassium 4.4 Chloride 105 Carbon Dioxide 27.0 Anion Gap 5 BUN 24 H Creatinine 0.78 Estim Creat Clear Calc 71.99 Est GFR (MDRD) Af Amer 127 Est GFR (MDRD) Non-Af 105 BUN/Creatinine Ratio 30.9 H Glucose 153 H Calcium 7.4 L Total Bilirubin 1.00 AST 130 H ALT 74 H Alkaline Phosphatase 44 L Total Creatine Kinase 3293 H Troponin I 0.14 H Total Protein 6.8 Albumin 3.2 Globulin 3.6 Albumin/Globulin Ratio 0.9 Triglycerides 73 Cholesterol 90 LDL Cholesterol 41 VLDL Cholesterol 15 HDL Cholesterol 34 L Free T4 Assessment/Plan This patient was seen in conjunction with Hodan DENIS. I have independently interviewed and examined the patient and reviewed pertinent history, examination findings, laboratory and plan of management. I have reviewed the note and agree with the documented findings with the few additional points. In brief, patient is admitted for acute rhabdomyolysis secondary to mechanical fall. Patient had history of fall with fracture of right hip and femur fracture status post right hip replacement in the past. Patient also has COPD exacerbation secondary to acute viral bronchitis secondary to influenza A. I have discussed my assessment with Hodan DENIS and orders have been reviewed. Clinical Impression(s) from Imaging Studies Chest X-Ray 07/03/17 15:21 IMPRESSION: Normal x-ray examination of the chest. Electronically Signed: Wayne Soria MD at 15:48 EDT Tel , Service support , Brain CT 07/03/17 15:28 IMPRESSION: Normal unenhanced CT scan of the brain. Electronically Signed: Isaak Mario MD at 16:56 EDT , Service support , Cervical Spine CT 07/03/17 15:28 IMPRESSION: Limited by patient movement. There is no definite acute fracture/dislocation. Degenerative changes. Electronically Signed: Isaak Mario MD at 16:59 EDT , Service support , Pelvis X-Ray 07/03/17 15:28 IMPRESSION: No acute abnormality. Electronically Signed: Isaak Mario MD at 17:00 EDT , Service support , Code Visit Inpatient E&M: [id number] Subs Hosp L3
--- NOTE | 2017-07-04 10:55 | CASEMGMT ---
SW spoke with patient due to him possibly needing a chcf at d/c. Patient talks a lot so it is hard to get answers out of him. When he is asked a question he answers it and then tells a story along with it. Patient lives at home alone. He has a rollator, cane, shower chair, and raised toilet seat with rails. He uses his cane most of the time. He had a hip fracture in [place] and he went to [facility] for his rehab. They sent him home from there with home health. He goes to [place] for most everything as he is from around that area. His pharmacy is [facility] in [place] and his primary care Dr. Nadine Samaniego is in [place]. When asked he said he would be in agreement with going to [facility] if it is deemed necessary for him to go to rehab. He said he is supposed to go to a wedding next Friday and he has plane tickets he would have to give up. He did give SW permission to talk with his brother regarding his d/c plans. SW will await therapy and then also talk with his brother. EM spoke with Lucy in TCU and they would have a bed for patient Friday. She would start pre-cert as soon as therapy sees him today. Plan: Likely TCU pending therapy evals and insurance approval. Rafia SAUCEDA MSW
--- NOTE | 2017-07-04 11:01 | PN_ITS ---
<Hodan Lopez - Last Filed: 07/04/17 11:18> Subjective: Patient seen and examined. Denies significant shortness of breath. Complains of intermittent nonproductive cough. Denies fever, chills. He is worried about getting to his nieces wedding in a week. He is agreeable to further therapy at transitional care unit. Denies other complaints. - Physical Exam General: Alert, Oriented x3, Cooperative HEENT: Atraumatic, PERRLA, EOMI, Normocephalic Oral: Dry Mucosa, - - Poor dentition Neck: Supple, No JVD, Negative Carotid Bruits Lungs: Diminished, Wheezes Cardiovascular: Regular rate, Regular Rhythm, Normal S1, Normal S2, No murmurs Abdomen: Bowel Sounds Present, Soft, Non Tender, Non-Distended Extremities: No clubbing, No cyanosis, No edema, Capillary Refill Less than 3 Seconds Skin: No rashes, No breakdown, - - Diagnosis bilateral lower extremities Musculoskeletal: No Tenderness to Palpation of Joints or Extremities Neurological: Cranial nerves II-XII grossly intact, Neuro grossly intact Psych/Mental Status: Normal Affect, Appropriate Vital Signs Temp Pulse Resp BP Pulse Ox 98.2 F 87 20 H 128/77 H 94 07/04/17 07:55 07/04/17 07:55 07/04/17 07:55 07/04/17 07:55 07/04/17 07:55 Oxygen Flow Rate (L/min) 6 Oxygen Delivery Method Nasal Cannula Weight: 105.3 kg Body Mass Index (BMI) 32.4 Intake and Output for Last 24 Hours 07/02/17 07/03/17 07/04/17 23:59 23:59 23:59 Intake Total 1989 Output Total 1050 / 1050 Balance 940 / 940 Laboratory Tests Past 24 Hrs 07/03/17 07/03/17 07/03/17 20:57 20:57 23:24 WBC Corrected WBC RBC Hgb Hct MCV MCH MCHC RDW RDW Differential Plt Count MPV Neut % (Auto) Absolute Neuts (auto) Absolute Lymphs (auto) Total Counted Neutrophils % (Manual) Band Neutrophils % Lymphocytes % (Manual) Monocytes % (Manual) Nucleated RBC % Diff Path Review Platelet Estimate Plt Morphology Comment Polychromasia Hypochromasia Basophilic Stippling Anisocytosis Absolute Retic Sodium Potassium Chloride Carbon Dioxide Anion Gap BUN Creatinine Estim Creat Clear Calc Est GFR (MDRD) Af Amer Est GFR (MDRD) Non-Af BUN/Creatinine Ratio Glucose Calcium Total Bilirubin AST ALT Alkaline Phosphatase Total Creatine Kinase Troponin I 0.26 H 0.23 H Total Protein Albumin Globulin Albumin/Globulin Ratio Triglycerides Cholesterol LDL Cholesterol VLDL Cholesterol HDL Cholesterol Free T4 0.74 L 07/04/17 07/04/17 05:20 05:20 WBC OBSTETRICS TEACHER Corrected WBC 11.3 H RBC 5.11 Hgb 11.9 L Hct 38.7 L MCV 75.7 L MCH 23.3 L MCHC 30.7 L RDW 19.3 H RDW Differential 52.3 H Plt Count 281 MPV 9.9 Neut % (Auto) Not Reportable Absolute Neuts (auto) 9.9 H Absolute Lymphs (auto) 0.68 L Total Counted 100 Neutrophils % (Manual) 85 H Band Neutrophils % 3 Lymphocytes % (Manual) 6 L Monocytes % (Manual) 6 Nucleated RBC % 8.3 H Diff Path Review May foll Platelet Estimate ADEQUATE Plt Morphology Comment LARGE Polychromasia 2+ Hypochromasia 1+ Basophilic Stippling 1+ Anisocytosis 1+ Absolute Retic 0.94 Sodium 137 Potassium 4.4 Chloride 105 Carbon Dioxide 27.0 Anion Gap 5 BUN 24 H Creatinine 0.78 Estim Creat Clear Calc 71.99 Est GFR (MDRD) Af Amer 127 Est GFR (MDRD) Non-Af 105 BUN/Creatinine Ratio 30.9 H Glucose 153 H Calcium 7.4 L Total Bilirubin 1.00 AST 130 H ALT 74 H Alkaline Phosphatase 44 L Total Creatine Kinase 3293 H Troponin I 0.14 H Total Protein 6.8 Albumin 3.2 Globulin 3.6 Albumin/Globulin Ratio 0.9 Triglycerides 73 Cholesterol 90 LDL Cholesterol 41 VLDL Cholesterol 15 HDL Cholesterol 34 L Free T4 Medical Necessity - Tobacco Use Smoking Status: Current every day smoker Tobacco Use: Cigarettes - 1 pack per day Assessment/Plan 1. Acute rhabdomyolysis-secondary to lying on for for 2-3 days. CK on admission 3511. Slightly improved. Continue IV fluids. Trend CK. 2. Mechanical fall, prior to admission/physical debility/weakness-denies injury from fall. Patient has history of falls. Lives home alone. PT/OT. UA unremarkable. Low-grade temperature on admission. WBC mildly elevated, 13.2. Chest x-ray unremarkable. Patient shows signs of mild dehydration. IV fluids as noted above. CT of cervical spine shows no acute fracture or dislocation. X -ray of pelvis shows no acute abnormality. Brain CT normal. Plan for TCU at discharge pending pre-CERT. 3. Indeterminate troponin-troponin 0.22, 0.23, 0.14 on admission. EKG sinus rhythm without ST T changes. Patient denies chest pain. Repeat EKG this morning again without ST-T changes. Suspect demand ischemia related to acute hypoxia, COPD exacerbation. Continue aspirin. Fasting lipid panel within normal limits. 4. Acute hypoxia secondary to acute on chronic COPD exacerbation secondary to acute influenza A-patient has had episodes of hypoxia in the past during admission which were noted due to chronic lung disease. Chest CTA May 2015 showed pulmonary emphysema. Patient has never had any formal testing for COPD. Repeat CTA demonstrates no pulmonary embolus, hepatic steatosis, degenerative changes in the thoracic spine with compression fractures of T11 and T12, mild compression deformity of the T1 and T8 vertebral body, ill- defined nodule in the right lower lobe measuring approximately 5 mm, COPD. Lung nodule will need further imaging in 3-6 months. Continue supplemental oxygen to maintain O2 at or above 90%. Albuterol and DuoNeb aerosols. IS/PEP. HOB parameters. Chest x-ray unremarkable. Continue IV Solu-Medrol. Initiate Tamiflu. Discontinue azithromycin. Patient will need outpatient follow-up with pulmonary medicine. Complete walking pulse ox prior to discharge. 5. 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 6. Chronic diastolic CHF-hold home Lasix regimen given mild dehydration. Previous echocardiogram May 2015 showed an ejection fraction of 50%, mild tricuspid valve insufficiency. Left ventricular systolic function lower limits of normal. Repeat echocardiogram pending. 7. BPH-continue home Proscar regimen. 8. Chronic hemolytic anemia-status post splenectomy. Stable. 9. Hypothyroidism-continue home Synthroid regimen. 10. Tobacco dependence-current pack per day smoker. Patient has no plans of quitting. Encourage smoking cessation. Nicotine replacement patch if desired. 11. Osteoporosis-history of vertebral compression fractures. Continue vitamin D supplementation. 12. Depression-patient is very unkempt. Not on home regimen. Recommend outpatient follow-up. Discharge planning-patient agreeable to TCU at discharge. DVT prophylaxis-SCDs, Lovenox subcu. This patient was seen by RUSLAN Le under the supervision of Dr. Mack. <Jose Mack - Last Filed: 07/04/17 17:48> Subjective: Seen and examined. Agree with the above findings. Patient has influenza a, subtype H3. He is having cough. - Physical Exam Lungs: Diminished, Wheezes, - - Shortness of breath on exertion Vital Signs Temp Pulse Resp BP Pulse Ox 98.5 F 102 H 20 H 122/69 H 94 07/04/17 11:55 07/04/17 15:00 07/04/17 14:18 07/04/17 11:55 07/04/17 11:55 Oxygen Flow Rate (L/min) 6 Oxygen Delivery Method Nasal Cannula Weight: 232 lb 2.348 oz Body Mass Index (BMI) 32.4 Intake and Output for Last 24 Hours 07/02/17 07/03/17 07/04/17 23:59 23:59 23:59 Intake Total 3447 / 3447 Output Total 1500 / 1500 Balance 1947 / 1947 Microbiology Past 72 Hours 07/03/17 20:08 Respiratory Panel (PCR) - Final Mucosa - Nose Influenza A (Subtype H3) Laboratory Tests Past 24 Hrs 07/03/17 07/03/17 07/03/17 20:57 20:57 23:24 WBC Corrected WBC RBC Hgb Hct MCV MCH MCHC RDW RDW Differential Plt Count MPV Neut % (Auto) Absolute Neuts (auto) Absolute Lymphs (auto) Total Counted Neutrophils % (Manual) Band Neutrophils % Lymphocytes % (Manual) Monocytes % (Manual) Nucleated RBC % Diff Path Review Platelet Estimate Plt Morphology Comment Polychromasia Hypochromasia Basophilic Stippling Anisocytosis Absolute Retic Sodium Potassium Chloride Carbon Dioxide Anion Gap BUN Creatinine Estim Creat Clear Calc Est GFR (MDRD) Af Amer Est GFR (MDRD) Non-Af BUN/Creatinine Ratio Glucose Calcium Total Bilirubin AST ALT Alkaline Phosphatase Total Creatine Kinase Troponin I 0.26 H 0.23 H Total Protein Albumin Globulin Albumin/Globulin Ratio Triglycerides Cholesterol LDL Cholesterol VLDL Cholesterol HDL Cholesterol Free T4 0.74 L 07/04/17 07/04/17 05:20 05:20 WBC OBSTETRICS TEACHER Corrected WBC 11.3 H RBC 5.11 Hgb 11.9 L Hct 38.7 L MCV 75.7 L MCH 23.3 L MCHC 30.7 L RDW 19.3 H RDW Differential 52.3 H Plt Count 281 MPV 9.9 Neut % (Auto) Not Reportable Absolute Neuts (auto) 9.9 H Absolute Lymphs (auto) 0.68 L Total Counted 100 Neutrophils % (Manual) 85 H Band Neutrophils % 3 Lymphocytes % (Manual) 6 L Monocytes % (Manual) 6 Nucleated RBC % 8.3 H Diff Path Review Reviewed Platelet Estimate ADEQUATE Plt Morphology Comment LARGE Polychromasia 2+ Hypochromasia 1+ Basophilic Stippling 1+ Anisocytosis 1+ Absolute Retic 0.94 Sodium 137 Potassium 4.4 Chloride 105 Carbon Dioxide 27.0 Anion Gap 5 BUN 24 H Creatinine 0.78 Estim Creat Clear Calc 71.99 Est GFR (MDRD) Af Amer 127 Est GFR (MDRD) Non-Af 105 BUN/Creatinine Ratio 30.9 H Glucose 153 H Calcium 7.4 L Total Bilirubin 1.00 AST 130 H ALT 74 H Alkaline Phosphatase 44 L Total Creatine Kinase 3293 H Troponin I 0.14 H Total Protein 6.8 Albumin 3.2 Globulin 3.6 Albumin/Globulin Ratio 0.9 Triglycerides 73 Cholesterol 90 LDL Cholesterol 41 VLDL Cholesterol 15 HDL Cholesterol 34 L Free T4 Assessment/Plan This patient was seen in conjunction with Hodan DENIS. I have independently interviewed and examined the patient and reviewed pertinent history, examination findings, laboratory and plan of management. I have reviewed the note and agree with the documented findings with the few additional points. In brief, patient is admitted for acute rhabdomyolysis secondary to mechanical fall. Patient had history of fall with fracture of right hip and femur fracture status post right hip replacement in the past. Patient also has COPD exacerbation secondary to acute viral bronchitis secondary to influenza A. I have discussed my assessment with Hodan DENIS and orders have been reviewed. Clinical Impression(s) from Imaging Studies Chest X-Ray 07/03/17 15:21 IMPRESSION: Normal x-ray examination of the chest. Electronically Signed: Wayne Soria MD at 15:48 EDT Tel , Service support , Brain CT 07/03/17 15:28 IMPRESSION: Normal unenhanced CT scan of the brain. Electronically Signed: Isaak Mario MD at 16:56 EDT , Service support , Cervical Spine CT 07/03/17 15:28 IMPRESSION: Limited by patient movement. There is no definite acute fracture/dislocation. Degenerative changes. Electronically Signed: Isaak Mario MD at 16:59 EDT , Service support , Pelvis X-Ray 07/03/17 15:28 IMPRESSION: No acute abnormality. Electronically Signed: Isaak Mario MD at 17:00 EDT , Service support , Code Visit Inpatient E&M: 29700 Subs Hosp L3
[2017-07-04] MEDS: Oseltamivir Phosphate 75 MG Capsule PO ×2 (12:12→23:16)
--- NOTE | 2017-07-04 13:24 | CASEMGMT ---
Addendum entered by Rafia Sanabria 07/04/17 13:53: SW spoke with therapy and traveling with flu is not the best idea. However, mobility gannon he may be okay by which is when he is supposed to leave. SW spoke with patient and told him above. SW also told him he needs to use his own judgement as he ultimately is the only person that knows how he feels and what he is able to do or not do. SW told him he may get home and feel like he will not be able to make the trip. He thanked SW for the information. Home health would be difficult to arrange since patient is planning on going out of town and you are supposed to be homebound for home health. Rafia ROSA Original Note: SW reviewed therapy's notes and they recommended home and would benefit from further therapy. EM then spoke with patient about home health as it appears he does not need a half-way level of care. He told SW, I know it is your job to come in and sell your TCU or sell your home health, but what I want to know is, am I okay to travel? EM asked him if he asked therapy this question and he said he did, but their answer was vague. EM told him SW will try and find therapy and discuss his case with them. EM spoke with PILLOWCASE MAKER and she will have therapy call EM. EM called Lucy in TCU and canceled patient's referral. Rafia ROSA
[2017-07-04 13:41] LABS: Pathologist Review Reviewed
[2017-07-04 13:42] LABS: Pathologist Review Reviewed
[2017-07-04] MEDS: 0.9% Normal Saline 1,000 ML 100 ML IV ×2 (14:17→23:22)
[2017-07-05] VITALS (15 sets, daily range): BP systolic 128–136; BP diastolic 66–76; PULSE 67–100; RESP 18–20; TEMP 36.3–37.1; O2SAT 92–95
[2017-07-05] MEDS: Levothyroxine 150 MCG Tablet PO (05:50)
[2017-07-05] MEDS: MethylPREDNISolone 125 MG/2 ML Vial 60 MG IV ×3 (05:50→21:23)
[2017-07-05] MEDS: 0.9% NaCl Peripheral Flush Adult/Peds IV (05:50)
[2017-07-05 06:15] LABS: Hematocrit 35.7 % (40-54); Hemoglobin 11.2 g/dl (13.0-16.5); Mean Corp Hgb Conc 31.4 g/gl (32-36); Mean Corpuscular Hgb 23.5 pg (27.0-32.0); Mean Corpuscular Volume 74.8 fL (80-94); Platelet Count 293 K/mm3 (150-450); RBC Distribution Width CV 20.5 % (11.6-14.6); RBC Distribution Width SD 53.2 fl (35.1-43.9); Red Blood Count 4.77 M/mm3 (4.6-6.2)
[2017-07-05 06:17] LABS: Scan Indicated on CBC? Y/N YES- FLAGS NOTED
[2017-07-05 06:52] LABS: Anion Gap 6 (5-15); BUN 24 mg/dL (7-18); CPK Total, Creatine Kinase 2057 U/L (39-308); Calcium,Total 7.8 mg/dL (8.5-10.1); Chloride 104 mmol/L (98-107); Creatinine, Serum 0.77 mg/dL (0.70-1.30); EST Glomerular Filtration Rate 106 mL/min (>60); Est Glom Filt Rate - Afr Amer 128 mL/min (>60); Estimated Creatinine Clearance 71.99 ml/min; Glucose 162 mg/dL (74-106); Potassium 4.8 mmol/L (3.5-5.1); Sodium Level 138 mmol/L (136-145)
[2017-07-05 07:05] LABS: Differential Comment SCAN
[2017-07-05] MEDS: Ipratropium/Albuterol Sulfate 3 ML AMPUL.NEB INHALATION ×3 (07:09→18:53)
[2017-07-05] MEDS: Azithromycin 250 MG Tablet 500 MG PO (09:13)
[2017-07-05] MEDS: Multivitamins,Therapeutic Tablet 1 TABLET PO (09:13)
[2017-07-05] MEDS: Finasteride 5 MG Tablet PO (09:13)
[2017-07-05] MEDS: Famotidine 20 MG Tablet PO ×2 (09:13→21:24)
[2017-07-05] MEDS: Aspirin 81 MG TAB.CHEW PO (09:13)
[2017-07-05] MEDS: Oseltamivir Phosphate 75 MG Capsule PO ×2 (09:13→21:24)
[2017-07-05 09:36] LABS: Bedside Glucose 200 mg/dL (70-110)
[2017-07-05] MEDS: 0.9% Normal Saline 1,000 ML 100 ML IV (10:28)
--- NOTE | 2017-07-05 13:15 | CASEMGMT ---
Social Work Referral for possible placement options. Meeting with patient in room. Noting that patient social work has been following patient. Patient now requesting for a referral to be made to the Transitional Care Unit again in the event that patient is not able to discharge back home. Patient reporting to possibly be able to return home but to not be sure. This vp digital marketing social media and crm reporting that a call will be made to add patient back to the list for TCU in the event that patient does in deed need placement. Patient appreciative. Support given. Telephone call to admissions on TCU, voicemail left. Leonor MORENO, TERMITE CONTROL SERVICER
--- NOTE | 2017-07-05 14:47 | PN_ITS ---
<Hodan Lopez - Last Filed: 07/05/17 15:01> Subjective: Patient seen and examined. Denies shortness of breath. Continues to have intermittent nonproductive cough. Denies fever, chills. States he would like to go to a short-term rehab to strengthen his legs. Denies other complaints. - Physical Exam General: Alert, Oriented x3, Cooperative, No apparent distress HEENT: Atraumatic, PERRLA, EOMI, Normocephalic Neck: Supple, No JVD, Negative Carotid Bruits Lungs: Diminished, Wheezes Cardiovascular: Regular rate, Regular Rhythm, Normal S1, Normal S2, No murmurs Abdomen: Bowel Sounds Present, Soft, Non Tender, Non-Distended Extremities: No clubbing, No cyanosis, No edema, Capillary Refill Less than 3 Seconds Skin: No rashes, No breakdown Musculoskeletal: No Tenderness to Palpation of Joints or Extremities Neurological: Cranial nerves II-XII grossly intact, Neuro grossly intact Psych/Mental Status: Normal Affect, Appropriate Vital Signs Temp Pulse Resp BP Pulse Ox 98.3 F 86 18 135/66 H 93 07/05/17 09:10 07/05/17 14:07 07/05/17 14:07 07/05/17 09:10 07/05/17 09:53 Oxygen Flow Rate (L/min) 4.5 Oxygen Delivery Method Nasal Cannula Weight: 105.1 kg Body Mass Index (BMI) 32.4 Intake and Output for Last 24 Hours 07/03/17 07/04/17 07/05/17 23:59 23:59 23:59 Intake Total 4509 / 4509 2977 / 2977 Output Total 1500 / 1500 300 / 300 Balance 3009 / 3009 2677 / 2677 Microbiology Past 72 Hours 07/03/17 20:08 Respiratory Panel (PCR) - Final Mucosa - Nose Influenza A (Subtype H3) Laboratory Tests Past 24 Hrs 07/05/17 07/05/17 05:25 05:25 WBC 19.0 H RBC 4.77 Hgb 11.2 L Hct 35.7 L MCV 74.8 L MCH 23.5 L MCHC 31.4 L RDW 20.5 H RDW Differential 53.2 H Plt Count 293 MPV 11.0 Differential Comment SCAN Sodium 138 Potassium 4.8 Chloride 104 Carbon Dioxide 28.0 Anion Gap 6 BUN 24 H Creatinine 0.77 Estim Creat Clear Calc 71.99 Est GFR (MDRD) Af Amer 128 Est GFR (MDRD) Non-Af 106 BUN/Creatinine Ratio 31.0 H Glucose 162 H Calcium 7.8 L Total Creatine Kinase 7 H POC Glucose 07/05/17 09:30 POC Glucose 200 H Medical Necessity - Tobacco Use Smoking Status: Current every day smoker Tobacco Use: Cigarettes - 1 pack per day Assessment/Plan 1. Acute rhabdomyolysis-secondary to lying on for for 2-3 days. CK on admission 3511. Improved to 2056. Continue IV fluids. Trend CK. 2. Mechanical fall, prior to admission/physical debility/weakness-denies injury from fall. Patient has history of falls. Lives home alone. PT/OT. UA unremarkable. Chest x-ray unremarkable. CT of cervical spine shows no acute fracture or dislocation. X-ray of pelvis shows no acute abnormality. Brain CT normal. Possible SNF for at [place]. PT to re-evaluate today. 3. Indeterminate troponin-troponin 0.22, 0.23, 0.14 on admission. EKG sinus rhythm without ST T changes. Patient denies chest pain. Repeat EKG again without ST-T changes. Suspect demand ischemia related to acute hypoxia, COPD exacerbation. Continue aspirin. Fasting lipid panel within normal limits. 4. Acute hypoxia secondary to acute on chronic COPD exacerbation secondary to acute influenza A-patient has had episodes of hypoxia in the past during admission which were noted due to chronic lung disease. Chest CTA May 2015 showed pulmonary emphysema. Patient has never had any formal testing for COPD. Repeat CTA demonstrates no pulmonary embolus, hepatic steatosis, degenerative changes in the thoracic spine with compression fractures of T11 and T12, mild compression deformity of the T1 and T8 vertebral body, ill- defined nodule in the right lower lobe measuring approximately 5 mm, COPD. Lung nodule will need further imaging in 3-6 months. Continue supplemental oxygen to maintain O2 at or above 90%. Albuterol and DuoNeb aerosols. IS/PEP. HOB parameters. Chest x-ray unremarkable. Continue IV Solu-Medrol. Continue Tamiflu. Discontinue azithromycin. Patient will need outpatient follow-up with pulmonary medicine. Complete walking pulse ox prior to discharge. 5. 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 6. Chronic diastolic CHF-hold home Lasix regimen given mild dehydration. Previous echocardiogram May 2015 showed an ejection fraction of 50%, mild tricuspid valve insufficiency. Left ventricular systolic function lower limits of normal. 7. BPH-continue home Proscar regimen. 8. Chronic hemolytic anemia-status post splenectomy. Stable. 9. Hypothyroidism-continue home Synthroid regimen. 10. Tobacco dependence-current pack per day smoker. Patient has no plans of quitting. Encourage smoking cessation. Nicotine replacement patch if desired. 11. Osteoporosis-history of vertebral compression fractures. Continue vitamin D supplementation. 12. Depression-patient is very unkempt. Not on home regimen. Recommend outpatient follow-up. Discharge planning-pending repeat PT evaluation. DVT prophylaxis-SCDs, Lovenox subcu. This patient was seen by RUSLAN Le under the supervision of Dr. Mack. <Jose Mack - Last Filed: 07/05/17 16:42> Subjective: Seen and examined. Patient had question about mobility and he had complicated surgery of right total hip replacement with long head for fracture of right femur. Discussed with the PT. patient still has mild cough but no shortness of breath - Physical Exam Lungs: Diminished, Wheezes Vital Signs Temp Pulse Resp BP Pulse Ox 98.7 F 85 18 130/70 H 93 07/05/17 14:51 07/05/17 15:22 07/05/17 14:51 07/05/17 14:51 07/05/17 14:51 Oxygen Flow Rate (L/min) 4 Oxygen Delivery Method Nasal Cannula Weight: 231 lb 11.293 oz Body Mass Index (BMI) 32.4 Intake and Output for Last 24 Hours 07/03/17 07/04/17 07/05/17 23:59 23:59 23:59 Intake Total 4509 / 4509 2977 / 2977 Output Total 1500 / 1500 300 / 300 Balance 3009 / 3009 2677 / 2677 Microbiology Past 72 Hours 07/04/17 18:00 Gram Stain - Final Sputum, Expectorated/Coughed 07/03/17 20:08 Respiratory Panel (PCR) - Final Mucosa - Nose Influenza A (Subtype H3) Laboratory Tests Past 24 Hrs 07/05/17 07/05/17 05:25 05:25 WBC 19.0 H RBC 4.77 Hgb 11.2 L Hct 35.7 L MCV 74.8 L MCH 23.5 L MCHC 31.4 L RDW 20.5 H RDW Differential 53.2 H Plt Count 293 MPV 11.0 Differential Comment SCAN Sodium 138 Potassium 4.8 Chloride 104 Carbon Dioxide 28.0 Anion Gap 6 BUN 24 H Creatinine 0.77 Estim Creat Clear Calc 71.99 Est GFR (MDRD) Af Amer 128 Est GFR (MDRD) Non-Af 106 BUN/Creatinine Ratio 31.0 H Glucose 162 H Calcium 7.8 L Total Creatine Kinase 2057 H POC Glucose 07/05/17 09:30 POC Glucose 200 H Assessment/Plan This patient was seen in conjunction with CORPORATE SCHEDULERHodan. I have independently interviewed and examined the patient and reviewed pertinent history, examination findings, laboratory and plan of management. I have reviewed the note and agree with the documented findings with the few additional points. In brief, patient is admitted for acute rhabdomyolysis secondary to mechanical fall. Patient had history of fall with fracture of right hip and femur fracture status post right hip replacement in the past. Patient also has COPD exacerbation secondary to acute viral bronchitis secondary to influenza A. Earlier PT recommended physical therapy at home. Requested PT to reevaluate. I have discussed my assessment with Hodan DENIS and orders have been reviewed. Code Visit Inpatient E&M: 40137 Subs Hosp L3
[2017-07-05] MEDS: Senna/Docusate Sodium 1 Tablet 2 TABLET PO (21:24)
[2017-07-06] VITALS (9 sets, daily range): BP systolic 128–130; BP diastolic 72–74; PULSE 61–90; RESP 18–20; TEMP 36.1–36.2; O2SAT 84–94
[2017-07-06] MEDS: MethylPREDNISolone 125 MG/2 ML Vial 60 MG IV (06:15)
[2017-07-06] MEDS: Levothyroxine 150 MCG Tablet PO (06:15)
[2017-07-06] MEDS: Ipratropium/Albuterol Sulfate 3 ML AMPUL.NEB INHALATION ×2 (06:55→11:04)
[2017-07-06 08:20] LABS: Anion Gap 4 (5-15); BUN 20 mg/dL (7-18); BUN/Creat Ratio 27.8 RATIO (10-20); CPK Total, Creatine Kinase 573 U/L (39-308); Calcium,Total 8.1 mg/dL (8.5-10.1); Chloride 105 mmol/L (98-107); Creatinine, Serum 0.72 mg/dL (0.70-1.30); EST Glomerular Filtration Rate 115 mL/min (>60); Est Glom Filt Rate - Afr Amer 139 mL/min (>60); Estimated Creatinine Clearance 71.99 ml/min; Glucose 189 mg/dL (74-106); Magnesium 2.4 mg/dL (1.6-2.6); Potassium 4.8 mmol/L (3.5-5.1); Sodium Level 139 mmol/L (136-145)
[2017-07-06] MEDS: Multivitamins,Therapeutic Tablet 1 TABLET PO (09:38)
[2017-07-06] MEDS: Oseltamivir Phosphate 75 MG Capsule PO (09:38)
[2017-07-06] MEDS: Finasteride 5 MG Tablet PO (09:38)
[2017-07-06] MEDS: Azithromycin 250 MG Tablet 500 MG PO (09:39)
[2017-07-06] MEDS: Senna/Docusate Sodium 1 Tablet 2 TABLET PO (09:39)
[2017-07-06] MEDS: Aspirin 81 MG TAB.CHEW PO (09:39)
[2017-07-06] MEDS: Famotidine 20 MG Tablet PO (09:40)
--- NOTE | 2017-07-06 13:53 | PCM.DC ---
You will use the following diet at home:: Cardiac Discharge Activity: Return to Normal Activity Call your doctor if you observe: Shortness of breath, Dizziness, Fainting spells, Chest pain, Increased palpitations (irregular heartbeat) Additional Instructions: You will need to follow up with [facility] (Dr. Soni or Dr. Rasheed) in 1-2 weeks to establish care for your COPD and lung nodule finding on CT scan which will require repeat imaging in 3-6 months. You will continue to wear home oxygen to maintain O2 at or above 90%. Recommend purchasing a pulse oximeter in order to monitor your oxygen levels. Allergies/Adverse Reactions: Allergies acyclovir Allergy (Verified 12/05/15 13:25) Swelling doxycycline Allergy (Verified 12/07/15 13:57) MAKES ME YOUNG gabapentin Allergy (Verified 12/05/15 13:25) Swelling Medications to take at Discharge Multivitamins,Therapeutic [Multivitamin] 1 tablet PO DAILY 05/21/15 Cholecalciferol (VIT D3) [Vitamin D3] 2,000 unit PO DAILY 12/05/15 Furosemide [Lasix] 40 mg PO DAILY 12/05/15 Finasteride [Proscar] 5 mg PO DAILY 07/03/17 Levothyroxine Sodium [Synthroid] 150 mcg PO DAILY 07/03/17 Albuterol Inhaler [Ventolin Hfa] 1 - 2 puff INHALATION Q4H PRN PRN #1 inhaler 07/06/17 Azithromycin [Zithromax] 250 mg PO DAILY #3 tab 07/06/17 Oseltamivir Phosphate [Tamiflu] 75 mg PO BID #5 cap 07/06/17 Prednisone See Taper PO DAILY #30 tab 07/06/17 The following prescriptions were given: Albuterol Inhaler [Ventolin Hfa] 1 - 2 puff INHALATION Q4H PRN PRN #1 inhaler PRN Reason: Shortness Of Breath Azithromycin [Zithromax] 250 mg PO DAILY #3 tab Prednisone See Taper PO DAILY #30 tab Oseltamivir Phosphate [Tamiflu] 75 mg PO BID #5 cap Primary Care Physician: Robe Meyer,Out of [Primary Care Provider] - Please follow up with your Primary Care Physician in: 1 Week Please Follow Up With: Deo Soni MD - May see STUDENT SUCCESS COUNSELOR When: 1-2 Weeks Proposed Discharge Date: 07/06/17
--- NOTE | 2017-07-06 13:57 | DCINST_ITS ---
You will use the following diet at home:: Cardiac Discharge Activity: Return to Normal Activity Call your doctor if you observe: Shortness of breath, Dizziness, Fainting spells , Chest pain, Increased palpitations (irregular heartbeat) Additional Instructions: You will need to follow up with [facility] (Dr. Soni or Dr. Rasheed) in 1-2 weeks to establish care for your COPD and lung nodule finding on CT scan which will require repeat imaging in 3-6 months. You will continue to wear home oxygen to maintain O2 at or above 90%. Recommend purchasing a pulse oximeter in order to monitor your oxygen levels. Allergies/Adverse Reactions: Allergies acyclovir Allergy (Verified 12/05/15 13:25) Swelling doxycycline Allergy (Verified 12/07/15 13:57) MAKES ME YOUNG gabapentin Allergy (Verified 12/05/15 13:25) Swelling Medications to take at Discharge Multivitamins,Therapeutic [Multivitamin] 1 tablet PO DAILY 05/21/15 Cholecalciferol (VIT D3) [Vitamin D3] 2,000 unit PO DAILY 12/05/15 Furosemide [Lasix] 40 mg PO DAILY 12/05/15 Finasteride [Proscar] 5 mg PO DAILY 07/03/17 Levothyroxine Sodium [Synthroid] 150 mcg PO DAILY 07/03/17 Albuterol Inhaler [Ventolin Hfa] 1 - 2 puff INHALATION Q4H PRN PRN #1 inhaler Azithromycin [Zithromax] 250 mg PO DAILY #3 tab 07/06/17 Oseltamivir Phosphate [Tamiflu] 75 mg PO BID #5 cap 07/06/17 Prednisone See Taper PO DAILY #30 tab 07/06/17 The following prescriptions were given: Albuterol Inhaler [Ventolin Hfa] 1 - 2 puff INHALATION Q4H PRN PRN #1 inhaler PRN Reason: Shortness Of Breath Azithromycin [Zithromax] 250 mg PO DAILY #3 tab Prednisone See Taper PO DAILY #30 tab Oseltamivir Phosphate [Tamiflu] 75 mg PO BID #5 cap Primary Care Physician: Robe Meyer,Out of [Primary Care Provider] - Please follow up with your Primary Care Physician in: 1 Week Please Follow Up With: Deo Soni MD - May see ADMINISTRATIVE SERVICES COORDINATOR When: 1-2 Weeks Proposed Discharge Date: 07/06/17
--- NOTE | 2017-07-06 13:58 | PCM.DC.SUM ---
<Hodan Lopez - Last Filed: 07/06/17 14:09> Discharge Date and Diagnosis Date of Admission: 07/03/17 Date of Discharge: 07/06/17 - Primary Discharge Diagnosis 1. Acute rhabdomyolysis-secondary to mechanical fall and lying on the floor for 2-3 days 2. Indeterminate troponin-suspect demand ischemia due to COPD exacerbation/hypoxia 3. Mechanical fall, prior to admission 4. Acute hypoxia secondary to acute on chronic COPD exacerbation secondary to acute influenza A - Secondary Discharge Diagnosis Chronic Problems Abnormal CT of the chest (Chronic) Hemolytic anemia (Chronic) Chronic back pain (Chronic) Osteoporosis (Chronic) Depression (Chronic) Hypothyroid (Chronic) Hypertension (Chronic) Hospital Course and Treatment Imaging Results: Diagnostic Data Chest X-Ray 07/03/17 15:21 IMPRESSION: Normal x-ray examination of the chest. Electronically Signed: Wayne Soria MD at 15:48 EDT Tel , Service support , Brain CT 07/03/17 15:28 IMPRESSION: Normal unenhanced CT scan of the brain. Electronically Signed: Isaak Mario MD at 16:56 EDT , Service support , Cervical Spine CT 07/03/17 15:28 IMPRESSION: Limited by patient movement. There is no definite acute fracture/dislocation. Degenerative changes. Electronically Signed: Isaak Mario MD at 16:59 EDT , Service support , Pelvis X-Ray 07/03/17 15:28 IMPRESSION: No acute abnormality. Electronically Signed: Isaak Mario MD at 17:00 EDT , Service support , Chest CTA 07/03/17 19:48 Operations: None Procedures: None Summary of Care Provided: Patient is a 71-year-old male admitted 07/03/2017 due to weakness, fall. He reported he was lying on the floor for 2-3 days before his brother stopped by his house and called emergency services. His past medical history includes hypertension, hypothyroidism, BPH, osteoporosis, depression, chronic anemia, COPD, diastolic CHF. 1. Acute rhabdomyolysis-secondary to lying on for for 2-3 days. CK on admission 3511. Improved to 573 with IV fluids. 2. Mechanical fall, prior to admission/physical debility/weakness-denies injury from fall. Patient has history of falls. UA unremarkable. Chest x-ray unremarkable. CT of cervical spine shows no acute fracture or dislocation. X-ray of pelvis shows no acute abnormality. Brain CT normal. Patient did well with physical therapy and they recommended patient return home and would benefit from further skilled therapy. They did not recommend SNF. Patient refused home health. 3. Indeterminate troponin-troponin 0.22, 0.23, 0.14 on admission. EKG sinus rhythm without ST T changes. Patient denies chest pain. Repeat EKG again without ST-T changes. Suspect demand ischemia related to acute hypoxia, COPD exacerbation. Fasting lipid panel within normal limits. 4. Acute hypoxia secondary to acute on chronic COPD exacerbation secondary to acute influenza A-patient has had episodes of hypoxia in the past during admission which were noted due to chronic lung disease. Chest CTA May 2015 showed pulmonary emphysema. Patient has never had any formal testing for COPD. Chest x-ray unremarkable. Repeat CTA demonstrates no pulmonary embolus, hepatic steatosis, degenerative changes in the thoracic spine with compression fractures of T11 and T12, mild compression deformity of the T1 and T8 vertebral body, ill-defined nodule in the right lower lobe measuring approximately 5 mm, COPD. Lung nodule will need further imaging in 3-6 months. Patient completed walking pulse ox and requires oxygen at discharge. He is ambulatory in the home. He was instructed to continue home oxygen and titrate to maintain O2 at or above 90%. It was recommended that he buy a pulse oximeter to monitor this. He will be discharged with albuterol inhaler as needed for shortness of breath. Patient will continue 5 day course of azithromycin at discharge. He will also complete course of Tamiflu. He will be discharged on prednisone taper as well. He will need further follow-up with pulmonary medicine as outpatient in 1-2 weeks to establish care. Recommend pulmonary function testing and further imaging in 3-6 months for lung nodule. 5. 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 6. Chronic diastolic CHF-continue home Lasix regimen. Previous echocardiogram May 2015 showed an ejection fraction of 50%, mild tricuspid valve insufficiency. Left ventricular systolic function lower limits of normal. 7. BPH-continue home Proscar regimen. 8. Chronic hemolytic anemia-status post splenectomy. Stable. 9. Hypothyroidism-continue home Synthroid regimen. 10. Tobacco dependence-current pack per day smoker. Patient has no plans of quitting. Encourage smoking cessation. 11. Osteoporosis-history of vertebral compression fractures. Continue vitamin D supplementation. 12. Depression-patient is very unkempt. Not on home regimen. Recommend outpatient follow-up. General: Alert, Oriented x3, Cooperative, No apparent distress HEENT: Atraumatic, PERRLA, EOMI, Normocephalic Neck: Supple, No JVD, Negative Carotid Bruits Lungs: Diminished, minimal scattered wheezing Cardiovascular: Regular rate, Regular Rhythm, Normal S1, Normal S2, No murmurs Abdomen: Bowel Sounds Present, Soft, Non Tender, Non-Distended Extremities: No clubbing, No cyanosis, No edema, Capillary Refill Less than 3 Seconds Skin: No rashes, No breakdown Musculoskeletal: No Tenderness to Palpation of Joints or Extremities Neurological: Cranial nerves II-XII grossly intact, Neuro grossly intact Psych/Mental Status: Normal Affect, Appropriate Patient seen and examined prior to discharge. Physical assessment as noted above. Patient stable for discharge home with home oxygen and further follow-up as noted above. This patient was seen by RUSLAN Le under the supervision of Dr. Mack. Discharge Diet: Low fat/ Low Cholesterol Discharge Activity: Return to Normal Activity Call your doctor if you observe: Shortness of breath, Dizziness, Fainting spells, Chest pain, Increased palpitations (irregular heartbeat) Home Medications: Medications to take at Discharge Multivitamins,Therapeutic [Multivitamin] 1 tablet PO DAILY 05/21/15 Cholecalciferol (VIT D3) [Vitamin D3] 2,000 unit PO DAILY 12/05/15 Furosemide [Lasix] 40 mg PO DAILY 12/05/15 Finasteride [Proscar] 5 mg PO DAILY 07/03/17 Levothyroxine Sodium [Synthroid] 150 mcg PO DAILY 07/03/17 Albuterol Inhaler [Ventolin Hfa] 1 - 2 puff INHALATION Q4H PRN PRN #1 inhaler 04/01/18 Azithromycin [Zithromax] 250 mg PO DAILY #3 tab 07/06/17 Oseltamivir Phosphate [Tamiflu] 75 mg PO BID #5 cap 07/06/17 Prednisone See Taper PO DAILY #30 tab 07/06/17 Following Prescrptions Were Given to Patient: Albuterol Inhaler [Ventolin Hfa] 1 - 2 puff INHALATION Q4H PRN PRN #1 inhaler PRN Reason: Shortness Of Breath Azithromycin [Zithromax] 250 mg PO DAILY #3 tab Prednisone See Taper PO DAILY #30 tab Oseltamivir Phosphate [Tamiflu] 75 mg PO BID #5 cap Primary Care Physician: [facility] Doctor,Out of [Primary Care Provider] - Please follow up with your Primary Care Physician in: 1 Week Please Follow Up With: Deo Soni MD - May see PHARMACY AIDE When: 1-2 Weeks Patient Instructions: Oseltamivir Phosphate Oral capsule, Azithromycin Oral tablet Additional Instructions: You will need to follow up with [facility] (Dr. Soni or Dr. Rasheed) in 1-2 weeks to establish care for your COPD and lung nodule finding on CT scan which will require repeat imaging in 3-6 months. You will continue to wear home oxygen to maintain O2 at or above 90%. Recommend purchasing a pulse oximeter in order to monitor your oxygen levels. Disposition: Home Minutes spent on discharge:: 35 Patient Condition:: Stable Medical Necessity - Tobacco Use Smoking Status: Current every day smoker Tobacco Use: Cigarettes - 1 pack per day Meaningful Use Info Meaningful Use Diagnoses (Choose all that apply): None applicable <Jose Mack - Last Filed: 07/06/17 14:58> Discharge Date and Diagnosis - Secondary Discharge Diagnosis Chronic Problems Abnormal CT of the chest (Chronic) Hemolytic anemia (Chronic) Chronic back pain (Chronic) Osteoporosis (Chronic) Depression (Chronic) Hypothyroid (Chronic) Hypertension (Chronic) Hospital Course and Treatment Summary of Care Provided: [facility] patient was seen in conjunction with PHARMACY AIDEHodan. I have independently interviewed and examined the patient and reviewed pertinent history, examination findings, laboratory and plan of management. I have reviewed the note and agree with the documented findings with the few additional points. In brief, patient is admitted for acute rhabdomyolysis secondary to mechanical fall. Patient had history of fall with fracture of right hip and femur fracture status post right hip replacement in the past. Patient also has COPD exacerbation secondary to acute viral bronchitis secondary to influenza A. Earlier PT recommended physical therapy at home. Patient refused for home physical therapy as he has to pay co-pay. Patient is also refusing oxygen at home although requires home oxygen because of co-pay. I have discussed my assessment with PHARMACY AIDEHodan and orders have been reviewed. [] Code Visit Inpatient E&M: 02377 Disch Hosp
--- NOTE | 2017-07-06 14:07 | DS.PCM_ITS ---
<Hodan Lopez - Last Filed: 07/06/17 14:09> Discharge Date and Diagnosis Date of Admission: 07/03/17 Date of Discharge: 07/06/17 - Primary Discharge Diagnosis 1. Acute rhabdomyolysis-secondary to mechanical fall and lying on the floor for 2-3 days 2. Indeterminate troponin-suspect demand ischemia due to COPD exacerbation/ hypoxia 3. Mechanical fall, prior to admission 4. Acute hypoxia secondary to acute on chronic COPD exacerbation secondary to acute influenza A - Secondary Discharge Diagnosis Chronic Problems Abnormal CT of the chest (Chronic) Hemolytic anemia (Chronic) Chronic back pain (Chronic) Osteoporosis (Chronic) Depression (Chronic) Hypothyroid (Chronic) Hypertension (Chronic) Hospital Course and Treatment Imaging Results: Diagnostic Data Chest X-Ray 07/03/17 15:21 IMPRESSION: Normal x-ray examination of the chest. Electronically Signed: Wayne Soria MD at 15:48 EDT Tel , Service support , Brain CT 07/03/17 15:28 IMPRESSION: Normal unenhanced CT scan of the brain. Electronically Signed: Isaak Mario MD at 16:56 EDT , Service support , Cervical Spine CT 07/03/17 15:28 IMPRESSION: Limited by patient movement. There is no definite acute fracture/dislocation. Degenerative changes. Electronically Signed: Isaak Mario MD at 16:59 EDT , Service support , Pelvis X-Ray 07/03/17 15:28 IMPRESSION: No acute abnormality. Electronically Signed: Isaak Mario MD at 17:00 EDT , Service support , Chest CTA 07/03/17 19:48 Operations: None Procedures: None Summary of Care Provided: Patient is a 71-year-old male admitted 07/03/2017 due to weakness, fall. He reported he was lying on the floor for 2-3 days before his brother stopped by his house and called emergency services. His past medical history includes hypertension, hypothyroidism, BPH, osteoporosis, depression, chronic anemia, COPD, diastolic CHF. 1. Acute rhabdomyolysis-secondary to lying on for for 2-3 days. CK on admission 3511. Improved to 573 with IV fluids. 2. Mechanical fall, prior to admission/physical debility/weakness-denies injury from fall. Patient has history of falls. UA unremarkable. Chest x-ray unremarkable. CT of cervical spine shows no acute fracture or dislocation. X- ray of pelvis shows no acute abnormality. Brain CT normal. Patient did well with physical therapy and they recommended patient return home and would benefit from further skilled therapy. They did not recommend SNF. Patient refused home health. 3. Indeterminate troponin-troponin 0.22, 0.23, 0.14 on admission. EKG sinus rhythm without ST T changes. Patient denies chest pain. Repeat EKG again without ST-T changes. Suspect demand ischemia related to acute hypoxia, COPD exacerbation. Fasting lipid panel within normal limits. 4. Acute hypoxia secondary to acute on chronic COPD exacerbation secondary to acute influenza A-patient has had episodes of hypoxia in the past during admission which were noted due to chronic lung disease. Chest CTA May 2015 showed pulmonary emphysema. Patient has never had any formal testing for COPD. Chest x-ray unremarkable. Repeat CTA demonstrates no pulmonary embolus, hepatic steatosis, degenerative changes in the thoracic spine with compression fractures of T11 and T12, mild compression deformity of the T1 and T8 vertebral body, ill-defined nodule in the right lower lobe measuring approximately 5 mm, COPD. Lung nodule will need further imaging in 3-6 months. Patient completed walking pulse ox and requires oxygen at discharge. He is ambulatory in the home. He was instructed to continue home oxygen and titrate to maintain O2 at or above 90%. It was recommended that he buy a pulse oximeter to monitor this. He will be discharged with albuterol inhaler as needed for shortness of breath. Patient will continue 5 day course of azithromycin at discharge. He will also complete course of Tamiflu. He will be discharged on prednisone taper as well. He will need further follow-up with pulmonary medicine as outpatient in 1-2 weeks to establish care. Recommend pulmonary function testing and further imaging in 3-6 months for lung nodule. 5. 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 6. Chronic diastolic CHF-continue home Lasix regimen. Previous echocardiogram May 2015 showed an ejection fraction of 50%, mild tricuspid valve insufficiency. Left ventricular systolic function lower limits of normal. 7. BPH-continue home Proscar regimen. 8. Chronic hemolytic anemia-status post splenectomy. Stable. 9. Hypothyroidism-continue home Synthroid regimen. 10. Tobacco dependence-current pack per day smoker. Patient has no plans of quitting. Encourage smoking cessation. 11. Osteoporosis-history of vertebral compression fractures. Continue vitamin D supplementation. 12. Depression-patient is very unkempt. Not on home regimen. Recommend outpatient follow-up. General: Alert, Oriented x3, Cooperative, No apparent distress HEENT: Atraumatic, PERRLA, EOMI, Normocephalic Neck: Supple, No JVD, Negative Carotid Bruits Lungs: Diminished, minimal scattered wheezing Cardiovascular: Regular rate, Regular Rhythm, Normal S1, Normal S2, No murmurs Abdomen: Bowel Sounds Present, Soft, Non Tender, Non-Distended Extremities: No clubbing, No cyanosis, No edema, Capillary Refill Less than 3 Seconds Skin: No rashes, No breakdown Musculoskeletal: No Tenderness to Palpation of Joints or Extremities Neurological: Cranial nerves II-XII grossly intact, Neuro grossly intact Psych/Mental Status: Normal Affect, Appropriate Patient seen and examined prior to discharge. Physical assessment as noted above. Patient stable for discharge home with home oxygen and further follow- up as noted above. This patient was seen by RUSLAN Le under the supervision of Dr. Mack. Discharge Diet: Low fat/ Low Cholesterol Discharge Activity: Return to Normal Activity Call your doctor if you observe: Shortness of breath, Dizziness, Fainting spells , Chest pain, Increased palpitations (irregular heartbeat) Home Medications: Medications to take at Discharge Multivitamins,Therapeutic [Multivitamin] 1 tablet PO DAILY 05/21/15 Cholecalciferol (VIT D3) [Vitamin D3] 2,000 unit PO DAILY 12/05/15 Furosemide [Lasix] 40 mg PO DAILY 12/05/15 Finasteride [Proscar] 5 mg PO DAILY 07/03/17 Levothyroxine Sodium [Synthroid] 150 mcg PO DAILY 07/03/17 Albuterol Inhaler [Ventolin Hfa] 1 - 2 puff INHALATION Q4H PRN PRN #1 inhaler 04 /01/18 Azithromycin [Zithromax] 250 mg PO DAILY #3 tab 07/06/17 Oseltamivir Phosphate [Tamiflu] 75 mg PO BID #5 cap 07/06/17 Prednisone See Taper PO DAILY #30 tab 07/06/17 Following Prescrptions Were Given to Patient: Albuterol Inhaler [Ventolin Hfa] 1 - 2 puff INHALATION Q4H PRN PRN #1 inhaler PRN Reason: Shortness Of Breath Azithromycin [Zithromax] 250 mg PO DAILY #3 tab Prednisone See Taper PO DAILY #30 tab Oseltamivir Phosphate [Tamiflu] 75 mg PO BID #5 cap Primary Care Physician: [facility] Doctor,Out of [Primary Care Provider] - Please follow up with your Primary Care Physician in: 1 Week Please Follow Up With: Deo Soni MD - May see ENGINEER TECHNICAL STAFF When: 1-2 Weeks Patient Instructions: Oseltamivir Phosphate Oral capsule, Azithromycin Oral tablet Additional Instructions: You will need to follow up with [facility] (Dr. Soni or Dr. Rasheed) in 1-2 weeks to establish care for your COPD and lung nodule finding on CT scan which will require repeat imaging in 3-6 months. You will continue to wear home oxygen to maintain O2 at or above 90%. Recommend purchasing a pulse oximeter in order to monitor your oxygen levels. Disposition: Home Minutes spent on discharge:: 35 Patient Condition:: Stable Medical Necessity - Tobacco Use Smoking Status: Current every day smoker Tobacco Use: Cigarettes - 1 pack per day Meaningful Use Info Meaningful Use Diagnoses (Choose all that apply): None applicable <Jose Mack - Last Filed: 07/06/17 14:58> Discharge Date and Diagnosis - Secondary Discharge Diagnosis Chronic Problems Abnormal CT of the chest (Chronic) Hemolytic anemia (Chronic) Chronic back pain (Chronic) Osteoporosis (Chronic) Depression (Chronic) Hypothyroid (Chronic) Hypertension (Chronic) Hospital Course and Treatment Summary of Care Provided: [facility] patient was seen in conjunction with ENGINEER TECHNICAL STAFFHodan. I have independently interviewed and examined the patient and reviewed pertinent history, examination findings, laboratory and plan of management. I have reviewed the note and agree with the documented findings with the few additional points. In brief, patient is admitted for acute rhabdomyolysis secondary to mechanical fall. Patient had history of fall with fracture of right hip and femur fracture status post right hip replacement in the past. Patient also has COPD exacerbation secondary to acute viral bronchitis secondary to influenza A. Earlier PT recommended physical therapy at home. Patient refused for home physical therapy as he has to pay co-pay. Patient is also refusing oxygen at home although requires home oxygen because of co-pay. I have discussed my assessment with ENGINEER TECHNICAL STAFFHodan and orders have been reviewed. [] Code Visit Inpatient E&M: 12900 Disch Hosp
--- NOTE | 2017-07-06 16:23 | NURSING ---
patient refusing home oxygen. Educated on benefits, still refusing.
== END 2017-07-06 17:33 | disposition home or self-care (01) | DRG 557 ==
LOC: ED 15:52 → PCU 17:24
PROVIDERS: Nurse Practitioner Family; Admitting Provider Family Medicine; Emergency Provider Emergency Medicine; Visit Provider Internal Medicine
DX: M62.82 Rhabdomyolysis (principal); J96.01 Acute respiratory failure with hypoxia; I24.8 Other forms of acute ischemic heart disease; I50.32 Chronic diastolic (congestive) heart failure; D58.9 Hereditary hemolytic anemia, unspecified; J44.1 Chronic obstructive pulmonary disease with (acute) exacerbation; I11.0 Hypertensive heart disease with heart failure; R53.1 Weakness; W06.XXXA Fall from bed, initial encounter; R79.89 Other specified abnormal findings of blood chemistry; F17.210 Nicotine dependence, cigarettes, uncomplicated; J20.9 Acute bronchitis, unspecified; J10.1 Influenza due to other identified influenza virus with other respiratory manifestations; E03.9 Hypothyroidism, unspecified; K21.9 Gastro-esophageal reflux disease without esophagitis; Z86.718 Personal history of other venous thrombosis and embolism; N40.0 Benign prostatic hyperplasia without lower urinary tract symptoms; E86.0 Dehydration; F32.9 Major depressive disorder, single episode, unspecified; M54.9 Dorsalgia, unspecified; I36.1 Nonrheumatic tricuspid (valve) insufficiency; G89.29 Other chronic pain; Z96.641 Presence of right artificial hip joint; Z79.82 Long term (current) use of aspirin; Z79.899 Other long term (current) drug therapy; Z87.310 Personal history of (healed) osteoporosis fracture; Z91.81 History of falling
CPT/HCPCS: 36415; 70450; 71045; 71275; 72125; 72170; 80048; 80053; 80061; 81001; 82550; 82962; 83605; 83735; 84439; 84443; 84484; 85025; 85027; 85379; 87070; 87205; 87633; 93005; 94640; 97110; 97116; 97162; 97166; 97530; 97802; 99285; 99406; J7030; Q9967; A4216

== ENCOUNTER → 2018-01-19 16:40 | Outpatient (CLI) | payer MEDICARE, SELFPAY ==
[2018-01-19 18:01] LABS: PSA,Total - Annual Screen 7.92 ng/mL (0.00-4.00)
== END ==
PROVIDERS: Referring Provider Urology; Visit Provider Urology
DX: Z12.5 Encounter for screening for malignant neoplasm of prostate (principal)
CPT/HCPCS: 36415; 84153; G0103

== ENCOUNTER → 2019-02-15 13:08 | Outpatient (CLI) | payer MEDICARE, SELFPAY ==
[2019-02-15 14:11] LABS: PSA,Total- Diagnostic 7.94 ng/mL (0.0-4.0)
== END ==
PROVIDERS: Family Provider Internal Medicine Cardiovascular Disease; PCP Internal Medicine Cardiovascular Disease; Referring Provider Urology; Visit Provider Urology
DX: R97.20 Elevated prostate specific antigen [PSA] (principal)
CPT/HCPCS: 36415; 84153

== ENCOUNTER → 2020-02-09 16:43 | Outpatient (CLI) | payer MEDICARE, SELFPAY ==
[2017-07-03 18:07] VITALS: BMI 32.4
[2020-02-09 17:41] LABS: PSA,Total- Diagnostic 6.87 ng/mL (0.0-4.0)
== END ==
PROVIDERS: PCP Internal Medicine Cardiovascular Disease; Visit Provider Urology
DX: R97.20 Elevated prostate specific antigen [PSA] (principal)
CPT/HCPCS: 36415; 84153

== ENCOUNTER 2022-04-27 01:19 | Inpatient (IN) | payer MEDICARE, SELFPAY ==
[2022-04-27] VITALS (10 sets, daily range): BP systolic 111–140; BP diastolic 71–93; PULSE 63–85; RESP 16–22; TEMP 36.4–36.9; O2SAT 88–92; BMI 32.5
[2022-04-27] MEDS: Finasteride 5 MG Tablet PO (06:44)
[2022-04-27] MEDS: Levothyroxine 150 MCG Tablet PO (06:44)
[2022-04-27] MEDS: Furosemide 20 MG Tablet PO ×2 (06:44→13:03)
[2022-04-27] MEDS: Senna/Docusate Sodium 1 Tablet PO (06:44)
[2022-04-27] MEDS: Cholecalciferol (VIT D3) 25 MCG TABLET (1,000 UNITS) 50 MCG PO (06:44)
[2022-04-27] MEDS: Fluticasone/Salmeterol 232-14 Inhaler 1 PUFF INHALATION ×2 (06:44→17:35)
[2022-04-27 06:54] LABS: Absolute Lymphocyte Count 1.24 X10^3/uL (0.83-4.51); Absolute Neutrophil Count 17.4 X10^3/uL (2.0-7.7); Basophil# 0.02 X10^3/uL; Basophil% 0.1 % (0-1); Eosinophil# 0.08 X10^3/uL; Eosinophils% 0.4 % (0-5); Hematocrit 32.6 % (40-54); Lymphocyte # 1.24 X10^3/ul (0.83-4.51); Lymphocyte % 5.9 % (19-41); Mean Corp Hgb Conc 30.7 g/dL (32-36); Mean Corpuscular Hgb 25.1 pg (27.0-32.0); Mean Corpuscular Volume 81.7 fL (80-94); Mean Platelet Vol. 10.8 fl (6.2-12.0); Monocyte# 1.81 X10^3/uL; Monocyte% 8.7 % (0-10); NRBC Flagged by Analyzer 11.1 % (0-5); Neutrophil # 17.43 X10^3/uL (2.7-7.7); Neutrophil % 83.6 % (47-70); POSITIVE COUNT YES; POSITIVE DIFFERENTIAL YES; POSITIVE MORPHOLOGY YES; Platelet Count 414 K/mm3 (150-450); RBC Distribution Width CV 22.6 % (11.6-14.6); RBC Distribution Width SD 65.2 fl (35.1-43.9); Red Blood Count 3.99 M/mm3 (4.6-6.2); White Blood Count 20.9 K/mm3 (4.4-11.0)
[2022-04-27 07:04] LABS: Differential Indicated SCAN CRITERIA MET
[2022-04-27 07:20] LABS: Anion Gap 4 (5-15); BUN 35 mg/dL (7-18); BUN/Creat Ratio 44.2 RATIO (10-20); Calcium,Total 8.9 mg/dL (8.5-10.1); Chloride 98 mmol/L (98-107); Creatinine, Serum 0.79 mg/dL (0.70-1.30); EST Glomerular Filtration Rate 102 mL/min (>60); Est Glom Filt Rate - Afr Amer 123 mL/min (>60); Glucose 127 mg/dL (74-106); Potassium 4.3 mmol/L (3.5-5.1); Sodium Level 135 mmol/L (136-145)
[2022-04-27] MEDS: MethylPREDNISolone DosePak 4 MG BOX PO ×4 (08:05→20:14)
[2022-04-27] MEDS: Multivitamins,Therapeutic Tablet 1 TABLET PO (08:06)
[2022-04-27] MEDS: Tamsulosin HCl 0.4 MG Capsule PO ×2 (08:06→17:36)
[2022-04-27 08:15] LABS: Basophilic Stippling 2+
[2022-04-27 08:16] LABS: Anisocytosis 2+; Polychromasia 1+
[2022-04-27 08:17] LABS: Schistocytes 1+; Target Cells 1+
[2022-04-27 08:18] LABS: Crenated RBC 1+
--- NOTE | 2022-04-27 10:32 | HP.PCM_ITS ---
[facility] - General General Date of Admission: 04/27/22 Date of Service: 04/29/22 Chief Complaint: Here for rehab. HPI Narrative SHERITA CEDENO, is a 76 Male who presents with followin04/19/[address] [facility]. Fall, right hip pain, suspected fracture. IV antibiotics for right sided pneumonia. Oxygen for acute respiratory failure with hypoxia. Consult Orthopedics for left pelvic fracture. CT showed left pelvis fracture, old L4, L5, compression fracture. Left kidney mass. 04/19/2022 CTA chest negative pulmonary embolism, showed mucous plugging, atelectasis. 04/19/2022 Pulmonary recommended oxygen, bronchodilators, IV steroids, antibiotics, cultures for acute respiratory failure with hypoxia, pneumonia, COPD exacerbation. 04/21/2022 More awake, alert, no fever, no shortness of breath, no chest pain. 04/22/2022 Renal ultrasound showed bilateral renal cysts, no masses. 04/22/2022 PT for pelvic fracture. 04/27/2022 Admit to TCU with debility, here for rehabilitation, strengthening, prior to discharge home alone. [facility] Medical History (Updated 04/27/22 @ 10:[address] Hardeep Solis MD) Acute respiratory failure with hypoxia BPH (benign prostatic hyperplasia) Chronic diastolic (congestive) heart failure COPD (chronic obstructive pulmonary disease) Debility Depression Fracture of left pelvis Hypothyroidism Osteoporosis Rheumatoid arthritis Vitamin D deficiency Home Medications multivitamin with folic acid 400 mcg tablet (Thera) 1 tab PO DAILY supplement 05/21/15 [History Last Taken 07/03/17] cholecalciferol (vitamin D3) 25 mcg (1,000 unit) tablet (Vitamin D3) 50 mcg PO DAILY supplement 12/05/15 [History Last Taken 07/02/17] furosemide 20 mg tablet 20 mg PO BID water pill 12/05/15 [History Last Taken 07/02/17] finasteride 5 mg tablet 5 mg PO DAILY prostate 07/03/17 [History Last Taken 07/03/17] levothyroxine 150 mcg tablet (Synthroid) 150 mcg PO DAILY thyroid 07/03/17 [History Last Taken 07/03/17] albuterol sulfate 90 mcg/actuation aerosol inhaler 1 - 2 puff inhalation Q4H PRN PRN Shortness Of Breath ##1 07/06/17 [Rx Last Taken Unknown] alendronate 70 mg tablet 70 mg PO QWEEK osteoporosis 04/27/22 [History Last Taken 04/22/22] fluticasone 250 mcg-salmeterol 50 mcg/dose blistr powdr for inhalation (Advair Diskus) 1 inh inhalation BID PRN PRN Shortness Of Breath 04/27/22 [History Last Taken Unknown] methotrexate sodium 2.5 mg tablet 2.5 mg PO QWEEK ra 04/27/22 [History Last Taken 04/22/22] methylprednisolone 4 mg tablet (Medrol) 4 mg PO DAILY steroid 04/27/22 [History Last Taken Unknown] tamsulosin 0.4 mg capsule 0.4 mg PO BID prostate 04/27/22 [History Last Taken Unknown] Allergy/AdvReac Type Severity Reaction Status Date / Time acyclovir Allergy Swelling Verified 12/05/15 13:25 doxycycline Allergy MAKES ME Verified 12/07/15 13:57 YOUNG gabapentin Allergy Swelling Verified 12/05/15 13:25 Surgical History (Updated 04/27/22 @ 10:[address] Hardeep Solis MD) History of cataract surgery History of cholecystectomy History of splenectomy Social History (Updated 04/27/22 @ 10:[address] Hardeep Solis MD) household members: none Smoking Status: Current every day smoker tobacco type: cigarettes Smoking packs per day: 0.5 Smoking cigarettes per day: 10.0 alcohol intake: current alcohol intake frequency: holidays/special occasions only Alcohol type: beer substance use type: does not use ROS Constitutional Constitutional: Denies chills, fever(s) or weight gain ENT HEENT: Denies headache(s), nasal congestion or nasal discharge Cardiovascular Cardiovascular: Denies chest pain or palpitations Respiratory/Chest Respiratory/Chest: Denies cough, excessive phlegm production or shortness of breath with exertion Gastrointestinal Gastrointestinal: Denies abdominal pain, nausea or vomiting Genitourinary Genitourinary: Denies dysuria Musculoskeletal Musculoskeletal: Denies joint pain or joint swelling Integumentary Integumentary: Denies rash or wounds Neurologic Neurologic: Denies focal weakness, numbness or tingling Psychiatric Psychiatric: Denies anxiety, auditory hallucinations, depression, homicidal ideation or suicidal ideation Vital Signs Vital Signs Vital Signs: 04/27/22 02:40 04/27/22 03:02 04/27/22 03:19 Temperature 98.5 F Temperature Source Oral Pulse Rate 85 85 Pulse Rhythm Regular Pulse Strength Normal (2+) Normal (2+) Respiratory Rate 16 18 Respiratory Effort Normal Non-Labored Respiratory Depth Normal Respiratory Pattern Normal Blood Pressure 137/77 H Blood Pressure Mean 97 Blood Pressure Source Monitor Blood Pressure Position Semi-Fowlers Blood Pressure Location Right Arm Pulse Ox 90 90 Oxygen Delivery Method Nasal Cannula Nasal Cannula Oxygen Flow Rate (L/min) 5 5 04/27/22 06:47 04/27/22 09:36 04/27/22 09:38 Temperature Temperature Source Pulse Rate 63 Pulse Rhythm Pulse Strength Respiratory Rate Respiratory Effort Respiratory Depth Respiratory Pattern Blood Pressure 111/71 Blood Pressure Mean 84 Blood Pressure Source Monitor Blood Pressure Position Semi-Fowlers Blood Pressure Location Right Arm Pulse Ox Oxygen Delivery Method Oxygen Flow Rate (L/min) 5 5 Weight Weight: 97 kg Body Mass Index (BMI) 32.5 Physical Exam Const alert General Appearance: cooperative HEENT normocephalic Eyes PERRL and EOMs intact bilaterally Neck supple, no JVD and no carotid bruits Resp normal respiratory effort and normal air movement Auscultation: wheezes and diminished lung sounds bilateral Cardio regular rate and regular rhythm GI normal to inspection, nondistended, normoactive bowel sounds, non-tender and non-distended Extremity normal capillary refill General Extremity: Negative for edema Skin no rashes or lesions noted General Skin Exam: no breakdown Psych affect normal Appearance: appropriate Results Lab / Micro Data Result Diagrams: 04/27/22 06:30 04/27/22 06:30 Labs: Laboratory Results - last 24 hr 04/27/22 06:30: WBC 20.9 H, RBC 3.99 L, Hgb 10.0 L, Hct 32.6 L, MCV 81.7, MCH 25.1 L, MCHC 30.7 L, RDW Std Deviation 65.2 H, RDW Coeff of Hansa 22.6 H, Plt Count 414, MPV 10.8, Immature Gran % (Auto) 1.300 H, Neut % (Auto) 83.6 H, Lymph % (Auto) 5.9 L, Sebastian % (Auto) 8.7, Eos % (Auto) 0.4, Baso % (Auto) 0.1, Absolute Neuts (auto) 17.4 H, Absolute Lymphs (auto) 1.24, Nucleated RBC % 11.1 H, Diff Path Review May foll, Polychromasia 1+, Basophilic Stippling 2+, Anisocytosis 2+, Target Cells 1+, Crenated Cell 1+, Schistocytes 1+ 04/27/22 06:30: Sodium 135 L, Potassium 4.3, Chloride 98, Carbon Dioxide 33.0 H, Anion Gap 4 L, BUN 35 H, Creatinine 0.79, Estim Creat Clear Calc 62.70, Est GFR (MDRD) Af Amer 123, Est GFR (MDRD) Non-Af 102, BUN/Creatinine Ratio 44.2 H, Glucose 127 H, Calcium 8.9 Micro: Microbiology 04/27/22 06:53 Nasal Secretion SARS-CoV-2 Antigen (Rapid) - Final Assessment & Plan Assessment/Plan (1) Debility: (2) Acute respiratory failure with hypoxia: (3) Fracture of left pelvis: (4) Vitamin D deficiency: (5) BPH (benign prostatic hyperplasia): (6) Hypothyroidism: (7) Depression: (8) COPD (chronic obstructive pulmonary disease): (9) Chronic diastolic (congestive) heart failure: (10) Osteoporosis: (11) Rheumatoid arthritis: PLAN: Plan 76 year old male with below past medical history hospitalized for left pelvic fracture, complicated by acute respiratory failure with hypoxia secondary to atelectasis, pneumonia ruled out, pulmonary embolism ruled out, admitted to TCU with debility, here for rehabilitation, strengthening, prior to discharge home alone. * Debility - PT/OT. * Pain - Tylenol 1000mg q6h prn pain (1-3), Tramadol 50mg q6h prn pain (4-5), Oxycodone 5mg q4h prn pain (6-10). * Bowel - Miralax 17gm daily, Senna/colace 2 tablets bid, Dulcolax 10mg pr x 1 prn, MOM 30ml po x 1 prn. * Adult immunization - Administer pneumonia vaccine, covid19 vaccine, flu vaccine as appropriate. * DVT prophylaxis - Hold, anemia. * COPD - Fluticasone/salmeterol 1 puff bid, Albuterol 1-2 puffs q4h prn, Medrol dose pack. * Osteoporosis - Alendronate 70mg per week. * BPH - Finasteride 5mg daily, Tamsulosin 0.4mg bid. * Chronic diastolic congestive heart failure - Furosemide 20mg bid. * Hypothyroidism - Levothyroxine 150mcg daily. * Rheumatoid arthritis - MTX 17.5mg per week, Medrol dose pack. * Nutrition - MVI daily. * Vitamin D deficiency - D3 25mcg daily.
[2022-04-27] MEDS: Tuberculin,Purif.prot.deriv. 50 TU/ML Vial 0.1 ML ID (10:58)
[2022-04-27] MEDS: Albuterol IH (6.7 GM) 1 PUFF INHALER INHALATION (11:58)
[2022-04-27] MEDS: traMADol 50 MG Tablet PO ×2 (12:00→20:26)
--- NOTE | 2022-04-27 14:00 | RAD_ITS ---
HISTORY: low 02 sats, rhonchi. TECHNIQUE: XR Chest 2 Views. COMPARISON: 07/03/2017. FINDINGS: CARDIOMEDIASTINAL BORDERS: Cardiac silhouette mildly enlarged. Calcification of the aorta. LUNGS: Mild bibasilar opacities. PLEURA: Mild pleural effusions. OSSEOUS STRUCTURES: Degenerative change. RAD/Chest PA and Lateral IMPRESSION: Mild pleural effusions with mild bibasilar atelectasis or pneumonia. Electronically Signed: Riddhi Resendez MD at 14:53 EST ,
--- NOTE | 2022-04-27 14:00 | RAD_ITS ---
STUDY: X-RAY - RIGHT SHOULDER REASON FOR EXAM: Male, 76 years old. pain TECHNIQUE: 2 view(s) of the shoulder. COMPARISON: Chest x-ray dated July 03, 2017 FINDINGS: There is mild degenerative arthrosis of the glenohumeral articulation. There is mild degenerative arthrosis of the acromioclavicular joint without inferior osseous spur formation. Normal acromion. Normal humeral head and visualized proximal humerus. The soft tissue structures are unremarkable. There is no demonstrated fracture. Chronic interstitial prominence of the right lung parenchyma. RAD/Shoulder min 2 Views IMPRESSION: Mild DJD of the shoulder joint. Electronically Signed: Benjamin Tamez MD at 14:39 EST ,
--- NOTE | 2022-04-27 14:16 | NURSING ---
Addendum entered by Lena Castro 04/27/22 15:38: Dr. Solis updated on cxray and shoulder xray results, no new orders. Dr Solis approved male alenwijorje per pt request. Original Note: Around 1130 checked on patient and checked 02 level, sats 89% on 5L, on 6L sats 89-90%. Had respiratory assess patient, his main complaint when they were in the room was pain, not showing any signs of respiratory distress. Sats maintaining at 90%, albuterol inhaler and tramadol given. Pain bit better after pill, but sats remain in high 80s. Called and updated Dr. Solis of above, verbal orders for cxray, order to keep sats at or over 88%, and to change albuterol from inhaler to neb treatments. Called back later and added order for blood gas. Updated MD that pt also complaining of right shoulder pain, verbal order for shoulder xray.
[2022-04-27 14:45] LABS: Allen Test Positive; Base Excess 7 mmol/L (-2 to +2); Bicarbonate 30.7 mmol/L (22-26); Blood Gas Specimen Type ART; O2 Delivery Device Cannula; PO2 55 mmHG (75-100); SITE R Radial; SO2 89 % (95-99); Total Carbon Dioxide 32 mmol/L; pCO2 45.2 mmHg (35-45); pH 7.44 (7.35-7.45)
[2022-04-27] MEDS: Senna/Docusate Sodium 1 Tablet 2 TABLET PO (17:36)
[2022-04-28] MEDS: Senna/Docusate Sodium 1 Tablet 2 TABLET PO ×2 (05:19→17:24)
[2022-04-28] MEDS: Polyethylene Glycol 3350 17 GM PACKET PO (05:19)
[2022-04-28] MEDS: Cholecalciferol (VIT D3) 25 MCG TABLET (1,000 UNITS) 50 MCG PO (05:19)
[2022-04-28] MEDS: Fluticasone/Salmeterol 232-14 Inhaler 1 PUFF INHALATION ×2 (05:19→17:24)
[2022-04-28] MEDS: Finasteride 5 MG Tablet PO (05:20)
[2022-04-28] MEDS: Furosemide 20 MG Tablet PO ×2 (05:20→14:55)
[2022-04-28] MEDS: Levothyroxine 150 MCG Tablet PO (05:21)
[2022-04-28 07:42] VITALS: O2SAT 90
[2022-04-28] MEDS: Multivitamins,Therapeutic Tablet 1 TABLET PO (07:48)
[2022-04-28] MEDS: Tamsulosin HCl 0.4 MG Capsule PO ×2 (07:48→17:23)
[2022-04-28] MEDS: MethylPREDNISolone DosePak 4 MG BOX PO ×4 (07:48→21:04)
[2022-04-28 16:00] VITALS: BP 120/69; PULSE 93; RESP 17; TEMP 36.6; O2SAT 96
[2022-04-28 17:21] VITALS: O2SAT 92
[2022-04-28] MEDS: oxyCODONE 5 MG Tablet PO (17:22)
[2022-04-28 19:10] VITALS: O2SAT 89
[2022-04-28 22:00] VITALS: PULSE 84; RESP 18; O2SAT 90
[2022-04-29] MEDS: Fluticasone/Salmeterol 232-14 Inhaler 1 PUFF INHALATION ×2 (06:04→17:45)
[2022-04-29] MEDS: Senna/Docusate Sodium 1 Tablet 2 TABLET PO (06:04)
[2022-04-29] MEDS: Levothyroxine 150 MCG Tablet PO (06:04)
[2022-04-29] MEDS: Furosemide 20 MG Tablet PO ×2 (06:04→14:04)
[2022-04-29] MEDS: Finasteride 5 MG Tablet PO (06:05)
[2022-04-29] MEDS: Cholecalciferol (VIT D3) 25 MCG TABLET (1,000 UNITS) 50 MCG PO (06:05)
[2022-04-29] MEDS: Methotrexate 2.5 MG Tablet 17.5 MG PO (06:06)
[2022-04-29] MEDS: Alendronate Sodium 70 MG Tablet PO (06:06)
[2022-04-29] MEDS: Multivitamins,Therapeutic Tablet 1 TABLET PO (08:23)
[2022-04-29] MEDS: MethylPREDNISolone DosePak 4 MG BOX PO ×4 (08:23→19:39)
[2022-04-29] MEDS: Tamsulosin HCl 0.4 MG Capsule PO ×2 (08:23→17:47)
[2022-04-29 10:00] VITALS: PULSE 73; O2SAT 90
--- NOTE | 2022-04-29 10:30 | NURSING ---
Pig Lead Melter Helper Note; Activity Asset; Complete Torsten is independent in his choice of daily activities. He also goes by Cory. Cory enjoys animals and just spending time alone at the [place]man. Cory will watch TV, and read the newspaper. He stated he is not a fan of word puzzles.
--- NOTE | 2022-04-29 11:49 | PHA.CONS_ITS ---
TCU RX Drug Regimen Review Subjective: 76YOM admitted to outside facility. Found to have pelvic fracture and pneumonia. Admitted to TCU for strengthening and rehabilition prio rot discharge home where he resides alone. Objective: Allergies acyclovir Allergy (Verified 12/05/15 13:25) Swelling doxycycline Allergy (Verified 12/07/15 13:57) MAKES ME YOUNG gabapentin Allergy (Verified 12/05/15 13:25) Swelling Current Medications Generic Name Dose Route Start Last Admin Trade Name Freq PRN Reason Stop Dose Admin Acetaminophen 1,000 mg 04/27/22 10:15 Acetaminophen 500 Mg Tablet PO Q6H PRN PRN Pain Score 1-3 Albuterol Sulfate 2.5 mg 04/27/22 13:40 Albuterol 2.5 Mg/3 Ml Vial.Neb. INHALATION Q4H.RT PRN DYSPNEA/WHEEZING/SOB Alendronate Sodium 70 mg 04/29/22 06:00 04/29/22 06:06 Alendronate Sodium 70 Mg Tablet PO 70 mg Mo@0600 REGGIE Administration Bisacodyl 10 mg 04/27/22 10:50 Bisacodyl 10 Mg Suppository RC X1 PRN Constipation Cholecalciferol 50 mcg 04/27/22 06:00 04/29/22 06:05 Cholecalciferol (Vit D3) 25 Mcg Tablet (1,000 Units) PO 50 mcg DAILY REGGIE Administration Finasteride 5 mg 04/27/22 06:00 04/29/22 06:05 Finasteride 5 Mg Tablet PO 5 mg DAILY REGGIE Administration Furosemide 20 mg 04/27/22 06:00 04/29/22 06:04 Furosemide 20 Mg Tablet PO 20 mg BIDLX REGGIE Administration Levothyroxine Sodium 150 mcg 04/27/22 06:00 04/29/22 06:04 Levothyroxine 150 Mcg Tablet PO 150 mcg DAILY REGGIE Administration Magnesium Hydroxide 30 ml 04/27/22 10:50 Magnesium Hydroxide 30 Ml Udc PO X1 PRN Constipation Methotrexate 17.5 mg 04/29/22 06:00 04/29/22 06:06 Methotrexate 2.5 Mg Tablet PO 17.5 mg Mo REGGIE Administration Methylprednisolone 4 mg 04/27/22 08:00 04/29/22 08:23 Methylprednisolone Dosepak 4 Mg Box PO 05/02/22 08:59 4 mg 0800,1200,1700,2200 REGGIE Administration Taper Multivitamins 1 tablet 04/27/22 08:00 04/29/22 08:23 Multivitamins,Therapeutic Tablet PO 1 tablet DAILYCM REGGIE Administration Oxycodone HCl 5 mg 04/27/22 10:15 04/28/22 17:22 Oxycodone 5 Mg Tablet PO 5 mg Q4H PRN PRN Administration Pain Score 6-10 Polyethylene Glycol 17 gm 04/27/22 11:00 04/29/22 06:05 Polyethylene Glycol 3350 17 Gm Packet PO Not Given DAILY REGGIE Fluticasone/Salmeterol 1 puff 04/27/22 06:00 04/29/22 06:04 Fluticasone/Salmeterol 232-14 Inhaler INHALATION 1 puff BID REGGIE Administration Senna/Docusate Sodium 2 tablet 04/27/22 18:00 04/29/22 06:04 Senna/Docusate Sodium 1 Tablet PO 2 tablet BID REGGIE Administration Tamsulosin HCl 0.4 mg 04/27/22 08:00 04/29/22 08:23 Tamsulosin Hcl 0.4 Mg Capsule [facility] Administration Tramadol HCl 50 mg 04/27/22 10:15 04/27/22 20:26 Tramadol 50 Mg Tablet PO 50 mg Q6H PRN PRN Administration Pain Score 4-5 Tuberculin PPD 0.1 ml 05/04/22 10:00 Tuberculin,Purif.Prot.Deriv. 50 Tu/Ml Vial ID 05/04/22 10:01 X1 ONE Problem List (Last Updated 04/27/22 @ 10:[address] Hardeep Solis MD) Rheumatoid arthritis (Acute) Osteoporosis (Acute) Chronic diastolic (congestive) heart failure (Chronic) COPD (chronic obstructive pulmonary disease) (Chronic) Depression (Acute) Hypothyroidism (Acute) BPH (benign prostatic hyperplasia) (Acute) Vitamin D deficiency (Acute) Fracture of left pelvis (Acute) Acute respiratory failure with hypoxia (Acute) Debility (Acute) Vital Signs Temp Pulse Resp BP Pulse Ox O2 Del Method O2 Flow Rate 97.9 F 84 18 120/69 90 Nasal Cannula 5 04/28/22 16:00 04/28/22 22:00 04/28/22 22:00 04/28/22 16:00 04/28/22 22:00 04/29/22 08:29 04/29/22 08:29 Oxygen Flow Rate (L/min) 5 Oxygen Delivery Method Nasal Cannula Weight: 97 kg Body Mass Index (BMI) 32.5 Sodium 135 mmol/L (136-145) L 04/27/22 06:30 Potassium 4.3 mmol/L (3.5-5.1) 04/27/22 06:30 Chloride 98 mmol/L (98-107) 04/27/22 06:30 Carbon Dioxide 33.0 mmol/L (21.0-32.0) H 04/27/22 06:30 Anion Gap 4 (5-15) L 04/27/22 06:30 BUN 35 mg/dL (7-18) H 04/27/22 06:30 Creatinine 0.79 mg/dL (0.70-1.30) 04/27/22 06:30 Est GFR (MDRD) Af Amer 123 mL/min (>60) 04/27/22 06:30 Est GFR (MDRD) Non-Af 102 mL/min (>60) 04/27/22 06:30 BUN/Creatinine Ratio 44.2 RATIO (10-20) H 04/27/22 06:30 Glucose 127 mg/dL (74-106) H 04/27/22 06:30 Assessment/Plan: *1. Pain: Tylenol 1000mg PO Q6h PRN Pain 1-3, Tramadol 50mg PO Q6h PRN Pain 4-5, Oxycodone 5mg PO Q4h PRN Pain 6-10. Please continue to monitor for increased/decreased S/S pain, PRN medication usage, oversedation, constipation with opioid use. - To date, the patient has utilized zero doses of Tylenol, 2 doses of Tramadol, and 1 dose of Oxycodone. Pre-medication pain scores range from 4-7, and post- medication pain scores ranging from 0-5. The patient is complaining mostly of hip pain. If clinically appropriate, Scheduled Tylenol may be beneficial for this patient, in addition to PRN medications being used, as his post-medication pain scores are still relatively high, thank you. 2. COPD: Fluticasone/Salmeterol inhaler 1 puff INH BID, Albuterol nebs Q4h PRN, Medrol Dosepak thru 05/02. Please continue to monitor for increased/decreased SOB, PRN medication usage, heart rate (WNL at this time), anxiousness, S/S exacerbation given recent pneumonia, insomnia. 3. Rheumatoid arthritis: Methotrexate 17.5mg PO Weekly (on Friday). Please continue to monitor CBC (last 04/27/22), renal function (stable), N/V/D. 4. Osteoporosis: Fosamax 70mg PO Once weekly (Friday). Please continue to monitor BMP, make sure medication is administered first thing in the morning without other medications for optimal effectiveness. *5. Hypothyroidism: Synthroid 150mcg PO daily. Please continue to monitor for S/S hyper/hypothyroidism. Please consider ordering a thyroid function panel to assess TSH. Last thyroid function tests were completed 06/2017, thank you. *6. CHF: Lasix 20mg PO BID. Please continue to monitor renal function, potassium levels (WNL on 04/27), I/O. The patient is not currently on any beta blockers or SHERRY-I medications for heart failure treatment. Please evaluate whether the patient should be on this to decrease morbidity, thank you. BPH: Finasteride 5mg PO daily, Flomax 0.4mg PO BIDCM. Please continue to monitor for medication effectiveness Health maintenance: MVI 1 tab PO Daily, Vitamin D3 50mcg PO daily. Bowel: Miralax 17g PO Daily, Senna/Docusate 2 tab PO BID, Dulcolax 10mg ID x1 PRN, MOM 30mL PO x1 PRN. Please continue to monitor for increased/decreased constipation and/or diarrhea. -To date, the patient has had a documented bowel movement on 04/29/22. Assessment/Plan for indications treated with psychotropic medications: The patient is not currently being maintained on any psychotropic medications at this time. Medical chart and medication regimen reviewed. The following medication irregularities or issues were identified: 1. Pain: Pre-medication pain scores range from 4-7, and post-medication pain scores ranging from 0-5. The patient is complaining mostly of hip pain. If clinically appropriate, Scheduled Tylenol may be beneficial for this patient, in addition to PRN medications being used, as his post-medication pain scores are still relatively high, thank you. 2. Hypothyroid: The patient is currently on Synthroid for hypothyroidism. Please consider ordering a thyroid function panel to assess TSH. Last thyroid function tests were completed 06/2017, thank you. 3. CHF: Please evaluate whether the patient would be a good candidate for SHERRY-I or beta clare therapy. It is noted the patient is not being managed on either medication class, which show a mortality benefit in patients with CHF, thank you. Date of Note:: 04/29/22
--- NOTE | 2022-04-29 12:07 | CASEMGMT ---
Social Work Met with patient to complete initial assessment. Introduced self and role. Verified contacts. Discussed code status and MOLST form. MOLST placed in Dr folder. Pt denied wanting to complete advanced directives. Educated to [facility] insurance with NRD 05/02 and continued stay is not guaranteed with each review. Pt is aware he admitted with 22 days remaining in 100 day skilled benefit with $200/day copay. Pt is aware of $660/day cost to remain private pay in TCU. Pt's 100th day is 05/18/22. Pt's goal is to DC home alone, being able to ambulate before the 22 days exhaust. Pt has new O2, new asher and wounds. SW to continue to follow for discharge planning. Eli Parada, UNDERWRITING ANALYST FEATHER BONER
[2022-04-29] MEDS: oxyCODONE 5 MG Tablet PO ×2 (12:11→19:38)
[2022-04-29 14:19] VITALS: BP 151/79; PULSE 96; RESP 16; TEMP 36.6; O2SAT 92
[2022-04-29 14:48] VITALS: O2SAT 92
[2022-04-29 14:56] VITALS: O2SAT 93
--- NOTE | 2022-04-29 15:42 | WOUNDNOTE ---
wound photo: left ischium
--- NOTE | 2022-04-29 15:43 | WOUNDNOTE ---
wound photo: paige cleft
--- NOTE | 2022-04-29 15:44 | WOUNDNOTE ---
wound photo: left posterior lower leg
--- NOTE | 2022-04-29 15:45 | WOUNDNOTE ---
wound photo: left anterior lower leg
--- NOTE | 2022-04-29 18:16 | NURSING ---
CT results sent from previous hospital competed on 04/26/22. Dr. Solis updated on results no N.O. at this time.
--- NOTE | 2022-04-29 21:53 | NURSING ---
Pt fingernails clipped, cleaned. Pt very appreciative.
[2022-04-30 05:12] VITALS: BP 138/80; PULSE 74
[2022-04-30] MEDS: Finasteride 5 MG Tablet PO (05:13)
[2022-04-30] MEDS: Levothyroxine 150 MCG Tablet PO (05:13)
[2022-04-30] MEDS: Cholecalciferol (VIT D3) 25 MCG TABLET (1,000 UNITS) 50 MCG PO (05:13)
[2022-04-30] MEDS: Furosemide 20 MG Tablet PO ×2 (05:13→13:38)
[2022-04-30] MEDS: Senna/Docusate Sodium 1 Tablet 2 TABLET PO ×2 (05:13→16:54)
[2022-04-30] MEDS: Fluticasone/Salmeterol 232-14 Inhaler 1 PUFF INHALATION ×2 (05:15→16:54)
[2022-04-30 07:46] VITALS: O2SAT 93
[2022-04-30] MEDS: Tamsulosin HCl 0.4 MG Capsule PO ×2 (09:07→16:54)
[2022-04-30] MEDS: Multivitamins,Therapeutic Tablet 1 TABLET PO (09:07)
[2022-04-30] MEDS: MethylPREDNISolone DosePak 4 MG BOX PO ×3 (09:07→21:17)
[2022-04-30] MEDS: oxyCODONE 5 MG Tablet PO ×2 (09:09→23:50)
[2022-04-30 09:49] LABS: Pathologist Review Reviewed
[2022-04-30 10:13] VITALS: PULSE 91; RESP 16; O2SAT 93
[2022-04-30 12:38] VITALS: O2SAT 92
[2022-04-30 13:48] VITALS: BP 118/77; PULSE 87; RESP 18; TEMP 36.2; O2SAT 96
--- NOTE | 2022-04-30 15:05 | CHAPLAIN ---
Type of Pastoral Visit _x__ Initial Visit ___ Follow-up Visit ___ On-call Visit ___ General Patient Visit ___ Spiritual Assessment ___ Family Conference ___ Bereavement ___ Rapid Response ___ Code Blue ___ Other (describe below) Pastoral Care Referral From _x__ Patient ___ Family ___ Nurse ___ Physician ___ Appetizer Packer ___ Fingerer ___ Other (describe below) Sacrament/Intervention _x__ Active listening ___ Anointing ___ Restorationism ___ Bereavement ___ Communion _x__ Caprice exploration ___ _x__ Life review _x__ Prayer ___ Reconciliation ___ Sacrament of Sick _x__ Supportive presence ___ Wedding ___ Other (describe below) Pastoral Comments patient is welcoming and begins his story of last six months and his decline in health; pt admits to being weary about this lengthy process of recovery and concerns with insurance and finances; however as patient gives long review of his life he eventually ends with the question of has my life had any meaning or purpose and other spiritual questions; this was a long encounter but the pt had many additional thoughts that he expressly asked that he could share with this probe operator; 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
--- NOTE | 2022-05-01 03:05 | NURSING ---
Patient c/o nose being dry, with a small amount of bleeding noted. Humidity added to O2. Will continue to monitor.
[2022-05-01] MEDS: Furosemide 20 MG Tablet PO ×2 (05:46→14:27)
[2022-05-01] MEDS: Cholecalciferol (VIT D3) 25 MCG TABLET (1,000 UNITS) 50 MCG PO (05:46)
[2022-05-01] MEDS: Fluticasone/Salmeterol 232-14 Inhaler 1 PUFF INHALATION ×2 (05:47→17:31)
[2022-05-01] MEDS: Levothyroxine 150 MCG Tablet PO (05:47)
[2022-05-01] MEDS: Finasteride 5 MG Tablet PO (05:47)
[2022-05-01] MEDS: Senna/Docusate Sodium 1 Tablet 2 TABLET PO ×2 (05:55→17:31)
[2022-05-01] MEDS: Multivitamins,Therapeutic Tablet 1 TABLET PO (07:48)
[2022-05-01] MEDS: MethylPREDNISolone DosePak 4 MG BOX PO ×2 (07:48→21:07)
[2022-05-01] MEDS: Tamsulosin HCl 0.4 MG Capsule PO ×2 (07:48→17:30)
[2022-05-01] MEDS: Juven (unflavored) Packet 1 PACKET PO ×2 (08:30→17:30)
[2022-05-01 10:00] VITALS: PULSE 92; RESP 18; O2SAT 91
[2022-05-01 10:55] VITALS: O2SAT 92
[2022-05-01] MEDS: oxyCODONE 5 MG Tablet PO (11:13)
[2022-05-01 13:54] VITALS: O2SAT 92
--- NOTE | 2022-05-01 14:54 | CASEMGMT ---
Social Work IDT met with patient and brother for care plan meeting. Discussed patient's progress in PT/OT/SN. Educated to [facility] insurance with NRD 05/02 and continued stay is not guaranteed. Educated to 100th of Medicare benefit is 05/18/22. Discussed discharge plans. Pt is aware he is unable to DC home alone at current level of functioning. Goal is for continued therapy to return home at OF. If pt is unable to return home, pt agreeable to SNF. Educated to financial liability at another facility and private pay cost for TCU. Brother lives in [facility] and requested referral to [facility] TCU. Advised it operates the same as [facility]CU and may not be able to accept for intermediate care. Pt and brother expressed understanding. SW provided both pt and brother a printed list of SNFs in [place] and [facility] with quality and resource data via CarePort Guide. SW to continue to follow. BIMS () and PHQ-9 (06/03) completed for MDS assessment. MOE SousaW
[2022-05-01 16:00] VITALS: BP 119/63; PULSE 90; RESP 16; TEMP 36.6; O2SAT 94
[2022-05-02 03:23] VITALS: PULSE 86; RESP 16; O2SAT 90
[2022-05-02] MEDS: Fluticasone/Salmeterol 232-14 Inhaler 1 PUFF INHALATION ×2 (05:05→17:32)
[2022-05-02] MEDS: Polyethylene Glycol 3350 17 GM PACKET PO (05:05)
[2022-05-02] MEDS: Senna/Docusate Sodium 1 Tablet 2 TABLET PO (05:05)
[2022-05-02] MEDS: Cholecalciferol (VIT D3) 25 MCG TABLET (1,000 UNITS) 50 MCG PO (05:06)
[2022-05-02] MEDS: Levothyroxine 150 MCG Tablet PO (05:06)
[2022-05-02] MEDS: Finasteride 5 MG Tablet PO (05:06)
[2022-05-02] MEDS: Furosemide 20 MG Tablet PO ×2 (05:06→14:49)
[2022-05-02 05:12] VITALS: PULSE 63; RESP 16; O2SAT 91
[2022-05-02 06:47] VITALS: O2SAT 93
[2022-05-02] MEDS: MethylPREDNISolone DosePak 4 MG BOX PO (07:44)
[2022-05-02] MEDS: Juven (unflavored) Packet 1 PACKET PO ×2 (07:45→17:32)
[2022-05-02] MEDS: Tamsulosin HCl 0.4 MG Capsule PO ×2 (07:45→17:32)
[2022-05-02] MEDS: Multivitamins,Therapeutic Tablet 1 TABLET PO (07:45)
[2022-05-02] MEDS: oxyCODONE 5 MG Tablet PO ×2 (09:55→21:41)
[2022-05-02 10:00] VITALS: O2SAT 90
--- NOTE | 2022-05-02 13:02 | MDS.RN ---
Pain assessment for CANDIDA 05/04/22 completed.
[2022-05-02 13:16] VITALS: BP 106/64; PULSE 92; RESP 18; TEMP 36.8; O2SAT 95
[2022-05-02 14:50] VITALS: BP 135/70; PULSE 99
--- NOTE | 2022-05-02 15:03 | CASEMGMT ---
Social Work Insurance approved with NRD 05/09 and to anticipate NOMNC at that review. SW messaged [facility] requesting update via [facility]Port. SW contacted brother to update on insurance review and to prepare for DC 05/12. Brother expressed understanding and is actively reviewing SNF list for choices. Brother to notify this worker of other referrals. Brother appreciative. SW received call from Tia, insurance CM, offering assistance with DC. CM noted the information discussed between EM and pt on DC plans and appreciative of the planning. CM has been in contact with pt as well. EM will continue to follow. Eli Parada, INTERLOCKING AND SIGNAL MECHANIC HYPERBARIC TECH
[2022-05-03 05:30] VITALS: BP 136/84; PULSE 82
[2022-05-03] MEDS: Furosemide 20 MG Tablet PO ×2 (05:35→13:50)
[2022-05-03] MEDS: Levothyroxine 150 MCG Tablet PO (05:35)
[2022-05-03] MEDS: Finasteride 5 MG Tablet PO (05:35)
[2022-05-03] MEDS: Cholecalciferol (VIT D3) 25 MCG TABLET (1,000 UNITS) 50 MCG PO (05:36)
[2022-05-03] MEDS: Fluticasone/Salmeterol 232-14 Inhaler 1 PUFF INHALATION ×2 (05:37→16:05)
[2022-05-03] MEDS: Tamsulosin HCl 0.4 MG Capsule PO ×2 (08:08→16:04)
[2022-05-03] MEDS: Multivitamins,Therapeutic Tablet 1 TABLET PO (08:08)
[2022-05-03] MEDS: Juven (unflavored) Packet 1 PACKET PO ×2 (08:08→16:04)
[2022-05-03] MEDS: oxyCODONE 5 MG Tablet PO (09:24)
--- NOTE | 2022-05-03 10:42 | NURSING ---
Advanced Manufacturing Engineer Note; MDS for 05/04/2022 Complete
--- NOTE | 2022-05-03 12:30 | CASEMGMT ---
Addendum entered by Eli Parada 05/03/22 16:25: Spoke with pt to update on below information. Pt to review with brother and see if there are other SNF choices. Addendum entered by Eli Parada 05/03/22 14:59: [facility] can accept. Original Note: Social Work Spoke with pt and brother about SNF choices and reviewed insurance coverage and NRD. Pt requesting referrals to [facility], [facility], [facility]. Referrals sent via [facility]Port. [facility] and [facility] currently do not have beds. [facility] denied due to exceeding care capacity. [facility] is reviewing. SW to continue to follow. MOE Sousa
[2022-05-03 13:52] VITALS: BP 134/72; PULSE 83
[2022-05-03] MEDS: traMADol 50 MG Tablet PO (16:03)
[2022-05-03 22:00] VITALS: RESP 18
[2022-05-04] MEDS: oxyCODONE 5 MG Tablet PO ×2 (00:27→09:52)
[2022-05-04] MEDS: Levothyroxine 150 MCG Tablet PO (06:52)
[2022-05-04] MEDS: Finasteride 5 MG Tablet PO (06:52)
[2022-05-04] MEDS: Cholecalciferol (VIT D3) 25 MCG TABLET (1,000 UNITS) 50 MCG PO (06:52)
[2022-05-04] MEDS: Furosemide 20 MG Tablet PO ×2 (06:52→13:57)
[2022-05-04] MEDS: Fluticasone/Salmeterol 232-14 Inhaler 1 PUFF INHALATION ×2 (06:53→17:17)
[2022-05-04 07:28] VITALS: O2SAT 92
[2022-05-04 08:03] LABS: Absolute Lymphocyte Count 2.41 X10^3/uL (0.83-4.51); Absolute Neutrophil Count 15.9 X10^3/uL (2.0-7.7); Basophil% 0.5 % (0-1); Eosinophil# 0.84 X10^3/uL; Eosinophils% 4.1 % (0-5); Hematocrit 31.6 % (40-54); Hemoglobin 9.9 g/dL (13.0-16.5); Lymphocyte # 2.41 X10^3/ul (0.83-4.51); Lymphocyte % 11.7 % (19-41); Mean Corp Hgb Conc 31.3 g/dL (32-36); Mean Corpuscular Hgb 25.1 pg (27.0-32.0); Mean Platelet Vol. 10.1 fl (6.2-12.0); Monocyte# 1.11 X10^3/uL; Monocyte% 5.4 % (0-10); NRBC Flagged by Analyzer 8.7 % (0-5); Neutrophil # 15.85 X10^3/uL (2.7-7.7); Neutrophil % 76.5 % (47-70); POSITIVE COUNT YES; POSITIVE MORPHOLOGY YES; Platelet Count 477 K/mm3 (150-450); RBC Distribution Width CV 21.9 % (11.6-14.6); RBC Distribution Width SD 58.5 fl (35.1-43.9); Red Blood Count 3.95 M/mm3 (4.6-6.2); White Blood Count 20.7 K/mm3 (4.4-11.0)
[2022-05-04 08:06] LABS: Differential Indicated SCAN CRITERIA MET
[2022-05-04 08:13] LABS: Anion Gap 7 (5-15); BUN 31 mg/dL (7-18); Calcium,Total 8.4 mg/dL (8.5-10.1); Chloride 98 mmol/L (98-107); EST Glomerular Filtration Rate 116 mL/min (>60); Est Glom Filt Rate - Afr Amer 141 mL/min (>60); Glucose 107 mg/dL (74-106); Potassium 4.1 mmol/L (3.5-5.1); Sodium Level 135 mmol/L (136-145)
[2022-05-04] MEDS: Juven (unflavored) Packet 1 PACKET PO ×2 (08:15→17:17)
[2022-05-04] MEDS: Multivitamins,Therapeutic Tablet 1 TABLET PO (08:15)
[2022-05-04] MEDS: Tamsulosin HCl 0.4 MG Capsule PO ×2 (08:15→17:17)
[2022-05-04 08:36] LABS: Differential Comment SCANNED; Poikilocytosis 1+; Polychromasia 1+
[2022-05-04 08:37] LABS: Anisocytosis 2+; Basophilic Stippling 2+; Crenated RBC 1+; Hypochromasia 2+; Macrocytosis 1+; Microcytosis 1+; Target Cells 1+
[2022-05-04] MEDS: Tuberculin,Purif.prot.deriv. 50 TU/ML Vial 0.1 ML ID (09:52)
[2022-05-04 10:17] VITALS: O2SAT 89
[2022-05-04] MEDS: traMADol 50 MG Tablet PO (13:56)
[2022-05-04 13:59] VITALS: BP 111/78; PULSE 101
[2022-05-04 15:34] VITALS: BP 117/67; PULSE 104; RESP 18; TEMP 36.5; O2SAT 92
[2022-05-04] MEDS: Senna/Docusate Sodium 1 Tablet 2 TABLET PO (17:17)
[2022-05-05] MEDS: oxyCODONE 5 MG Tablet PO (00:39)
[2022-05-05 06:48] LABS: Absolute Lymphocyte Count 1.55 X10^3/uL (0.83-4.51); Absolute Neutrophil Count 14.3 X10^3/uL (2.0-7.7); Basophil# 0.11 X10^3/uL; Basophil% 0.6 % (0-1); Eosinophil# 0.66 X10^3/uL; Eosinophils% 3.6 % (0-5); Hematocrit 32.1 % (40-54); Hemoglobin 9.9 g/dL (13.0-16.5); Lymphocyte # 1.55 X10^3/ul (0.83-4.51); Lymphocyte % 8.5 % (19-41); Mean Corp Hgb Conc 30.8 g/dL (32-36); Mean Corpuscular Hgb 24.7 pg (27.0-32.0); Mean Platelet Vol. 10.4 fl (6.2-12.0); Monocyte# 1.35 X10^3/uL; Monocyte% 7.4 % (0-10); NRBC Flagged by Analyzer 10.3 % (0-5); Neutrophil # 14.25 X10^3/uL (2.7-7.7); Neutrophil % 78.1 % (47-70); POSITIVE COUNT YES; POSITIVE MORPHOLOGY YES; Platelet Count 443 K/mm3 (150-450); RBC Distribution Width CV 22.1 % (11.6-14.6); RBC Distribution Width SD 59.9 fl (35.1-43.9); Red Blood Count 4.01 M/mm3 (4.6-6.2); White Blood Count 18.2 K/mm3 (4.4-11.0)
[2022-05-05 06:53] LABS: Differential Indicated SCAN CRITERIA MET
[2022-05-05 07:05] LABS: Acanthocytes RARE; Anisocytosis 1+; Basophilic Stippling 1+; Differential Comment SCANNED; Hypochromasia 1+; Microcytosis 1+; Target Cells RARE
[2022-05-05] MEDS: Levothyroxine 150 MCG Tablet PO (07:07)
[2022-05-05] MEDS: Fluticasone/Salmeterol 232-14 Inhaler 1 PUFF INHALATION ×2 (07:07→18:21)
[2022-05-05] MEDS: Senna/Docusate Sodium 1 Tablet 2 TABLET PO ×2 (07:07→18:21)
[2022-05-05] MEDS: Cholecalciferol (VIT D3) 25 MCG TABLET (1,000 UNITS) 50 MCG PO (07:08)
[2022-05-05] MEDS: Polyethylene Glycol 3350 17 GM PACKET PO (07:09)
[2022-05-05] MEDS: Finasteride 5 MG Tablet PO (07:09)
[2022-05-05] MEDS: Furosemide 20 MG Tablet PO ×2 (07:09→14:55)
[2022-05-05] MEDS: Multivitamins,Therapeutic Tablet 1 TABLET PO (09:15)
[2022-05-05] MEDS: Tamsulosin HCl 0.4 MG Capsule PO ×2 (09:15→18:21)
[2022-05-05] MEDS: Juven (unflavored) Packet 1 PACKET PO ×2 (09:15→18:21)
[2022-05-05 16:00] VITALS: BP 140/84; PULSE 91; RESP 16; TEMP 36.7; O2SAT 97
[2022-05-06 06:31] VITALS: O2SAT 94
[2022-05-06 06:40] VITALS: BP 128/78; PULSE 77
[2022-05-06] MEDS: Fluticasone/Salmeterol 232-14 Inhaler 1 PUFF INHALATION ×2 (06:43→17:14)
[2022-05-06] MEDS: Alendronate Sodium 70 MG Tablet PO (06:43)
[2022-05-06] MEDS: Methotrexate 2.5 MG Tablet 17.5 MG PO (06:44)
[2022-05-06] MEDS: Levothyroxine 150 MCG Tablet PO (06:44)
[2022-05-06] MEDS: Furosemide 20 MG Tablet PO ×2 (06:44→13:45)
[2022-05-06] MEDS: Cholecalciferol (VIT D3) 25 MCG TABLET (1,000 UNITS) 50 MCG PO (06:44)
[2022-05-06] MEDS: Finasteride 5 MG Tablet PO (06:45)
[2022-05-06] MEDS: Juven (unflavored) Packet 1 PACKET PO ×2 (07:29→17:14)
[2022-05-06] MEDS: Tamsulosin HCl 0.4 MG Capsule PO ×2 (07:29→17:14)
[2022-05-06] MEDS: Multivitamins,Therapeutic Tablet 1 TABLET PO (07:29)
[2022-05-06] MEDS: traMADol 50 MG Tablet PO (11:47)
[2022-05-06 13:44] LABS: Pathologist Review Reviewed
[2022-05-06] MEDS: oxyCODONE 5 MG Tablet PO (13:45)
--- NOTE | 2022-05-06 15:12 | WOUNDNOTE ---
Pt out of the room with therapy.
--- NOTE | 2022-05-06 15:21 | CASEMGMT ---
Social Work Received voicemail from brother requesting list of [facility] SNFs located near [place] via email. [facility] list sent via email with requested list of SNFs. Received voicemail requesting to speak with pt. SW followed up with pt. Pt requesting referral to [facility]. Referral made via [facility]. Eli Parada, MOE DHILLONW
[2022-05-06 15:47] VITALS: O2SAT 96
[2022-05-06 15:53] VITALS: BP 110/65; PULSE 95; RESP 16; TEMP 36.6; O2SAT 94
[2022-05-06] MEDS: Senna/Docusate Sodium 1 Tablet 2 TABLET PO (17:14)
[2022-05-06 20:30] VITALS: PULSE 94; RESP 16; O2SAT 92
[2022-05-07] MEDS: Cholecalciferol (VIT D3) 25 MCG TABLET (1,000 UNITS) 50 MCG PO (06:56)
[2022-05-07] MEDS: Levothyroxine 150 MCG Tablet PO (06:56)
[2022-05-07] MEDS: Furosemide 20 MG Tablet PO ×2 (06:56→15:04)
[2022-05-07] MEDS: Fluticasone/Salmeterol 232-14 Inhaler 1 PUFF INHALATION ×2 (06:57→17:06)
[2022-05-07] MEDS: Finasteride 5 MG Tablet PO (06:57)
[2022-05-07 07:17] VITALS: O2SAT 95
[2022-05-07] MEDS: Juven (unflavored) Packet 1 PACKET PO ×2 (08:33→17:06)
[2022-05-07] MEDS: Multivitamins,Therapeutic Tablet 1 TABLET PO (08:33)
[2022-05-07] MEDS: Tamsulosin HCl 0.4 MG Capsule PO ×2 (08:33→17:06)
[2022-05-07] MEDS: oxyCODONE 5 MG Tablet PO ×2 (08:37→15:05)
[2022-05-07 09:21] VITALS: O2SAT 94
[2022-05-07 10:00] VITALS: PULSE 83; O2SAT 91
[2022-05-07 15:07] VITALS: BP 121/69; PULSE 90; RESP 18; TEMP 36.5; O2SAT 90
[2022-05-08] MEDS: traMADol 50 MG Tablet PO ×2 (04:04→13:32)
[2022-05-08] MEDS: Levothyroxine 150 MCG Tablet PO (06:56)
[2022-05-08] MEDS: Furosemide 20 MG Tablet PO ×2 (06:56→13:32)
[2022-05-08] MEDS: Finasteride 5 MG Tablet PO (06:57)
[2022-05-08] MEDS: Cholecalciferol (VIT D3) 25 MCG TABLET (1,000 UNITS) 50 MCG PO (06:57)
[2022-05-08] MEDS: Fluticasone/Salmeterol 232-14 Inhaler 1 PUFF INHALATION ×2 (06:59→17:28)
[2022-05-08] MEDS: Multivitamins,Therapeutic Tablet 1 TABLET PO (08:33)
[2022-05-08] MEDS: Juven (unflavored) Packet 1 PACKET PO ×2 (08:33→17:27)
[2022-05-08] MEDS: Tamsulosin HCl 0.4 MG Capsule PO ×2 (08:33→17:27)
[2022-05-08] MEDS: oxyCODONE 5 MG Tablet PO (10:21)
[2022-05-08] MEDS: Acetaminophen 500 MG Tablet 1000 MG PO (10:21)
[2022-05-08 11:10] VITALS: O2SAT 95
--- NOTE | 2022-05-08 12:48 | CASEMGMT ---
Social Work Voicemail received from patient. Patient with questions about usp placement and choosing a facility. This social insurance specialist met with patient in room. Patient reports to have decided on [facility] as facility of choice. This social insurance specialist updated patient that per [facility]port, patient has been accepted to [facility]. Patient aware that insurance update is due tomorrow, 05/09/2022 with no guarantee of continued stay approval. Patient also aware that usp with be private pay. Patient inquired about transportation process as patient does not have family or support system that is able to transport patient. This social insurance specialist communicating that social insurance specialist is able to assist with setting up transportation via wheelchair van and that this might not be covered by insurance, patient understanding that transportation might be under private pay and request for social insurance specialist to set up transportation via wheelchair van when patient is discharging from the facility. Social Work to continue to follow. Juliann ROSA, KOMAL-S
--- NOTE | 2022-05-08 14:31 | WOUNDNOTE ---
wound photo: left ischium
--- NOTE | 2022-05-08 14:32 | WOUNDNOTE ---
wound photo: left posterior lower leg
[2022-05-08 16:00] VITALS: BP 121/68; PULSE 76; RESP 16; TEMP 36.3; O2SAT 95
[2022-05-08] MEDS: Senna/Docusate Sodium 1 Tablet 2 TABLET PO (17:28)
[2022-05-08 23:25] VITALS: PULSE 66; RESP 18; O2SAT 95
[2022-05-09 06:39] VITALS: BP 120/69; PULSE 67
[2022-05-09] MEDS: Finasteride 5 MG Tablet PO (06:40)
[2022-05-09] MEDS: Furosemide 20 MG Tablet PO ×2 (06:40→14:09)
[2022-05-09] MEDS: Cholecalciferol (VIT D3) 25 MCG TABLET (1,000 UNITS) 50 MCG PO (06:40)
[2022-05-09] MEDS: Fluticasone/Salmeterol 232-14 Inhaler 1 PUFF INHALATION ×2 (06:40→18:34)
[2022-05-09] MEDS: Levothyroxine 150 MCG Tablet PO (06:41)
[2022-05-09 07:20] VITALS: O2SAT 94
[2022-05-09] MEDS: oxyCODONE 5 MG Tablet PO (09:08)
[2022-05-09] MEDS: Tamsulosin HCl 0.4 MG Capsule PO ×2 (09:08→18:34)
[2022-05-09] MEDS: Juven (unflavored) Packet 1 PACKET PO ×2 (09:09→18:34)
[2022-05-09] MEDS: Acetaminophen 500 MG Tablet 1000 MG PO (09:09)
[2022-05-09] MEDS: Multivitamins,Therapeutic Tablet 1 TABLET PO (09:09)
--- NOTE | 2022-05-09 09:15 | MDS.RN ---
Information for the mds was obtained from review of the clinical record, interview of resident, staff, and direct observation of resident's care .
--- NOTE | 2022-05-09 09:37 | CASEMGMT ---
Addendum entered by Eli Parada 05/10/22 09:03: Spoke with Carley at [facility] and provided fax number to fax request. Addendum entered by Eli Parada 05/10/22 08:59: This worker has not received medical records request yet. Attempting to contact [facility]. Voicemail was left but did not talk to a live person. Case number correction: [id number]. This is showing active on the [facility] website. Addendum entered by Eli Parada 05/09/22 17:14: Insurnace issued LCD 2, DC 2. Spoke with pt about DC date. Explained appeal rights. Pt electing to appeal. Pt stating he has spoken to [facility] again and prefers to DC to their facility. SW updated [facility] and [facility]. Pt filed appeal and provided this worker with the Will await notification from [facility] for request of medical records. PASRR completed. Scheduled cot transport through [facility] for 1400. Plan: DC 2, pending appeal, CC, intermediate, private pay Addendum entered by Eli Parada 05/09/22 09:42: Received [facility] response that [facility] can accept pt with 30 days of payment up front Pt updated and can provide payment. SW notified [facility]. Will await DC date. Original Note: Social Work SW requested update from [facility] via [facility] yesterday about 1600. Have not received response. SW left message with admissions this date to follow up. SW anticipating DC date being issued from insurance at today's update. MOE Sousa
[2022-05-09 13:56] VITALS: BP 122/69; PULSE 75; RESP 18; TEMP 36.4; O2SAT 94
[2022-05-09] MEDS: Senna/Docusate Sodium 1 Tablet 2 TABLET PO (18:34)
--- NOTE | 2022-05-09 20:24 | DS.PCM_ITS ---
Providers Date of Admission: 04/27/22 Primary Care Physician: Dr. Matthew Samaniego MD Consultations 04/27/22 18:25 Consult: Onc/Wound/fitness leader Routine Comment: wounds to post LLE, coccyx and left ischium Reason For Visit: PELVIC FX/PNEUMONIA Diagnosis Discharge Diagnosis (1) Debility: Status: Acute Code(s): R53.81 - Other malaise (2) Acute respiratory failure with hypoxia: Status: Acute Code(s): J96.01 - Acute respiratory failure with hypoxia (3) Fracture of left pelvis: Status: Acute Code(s): S32.9XXA - Fracture of unspecified parts of lumbosacral spine and pelvis, initial encounter for closed fracture (4) Vitamin D deficiency: Status: Acute Code(s): E55.9 - Vitamin D deficiency, unspecified (5) BPH (benign prostatic hyperplasia): Status: Acute Code(s): N40.0 - Benign prostatic hyperplasia without lower urinary tract symptoms (6) Hypothyroidism: Status: Acute Code(s): E03.9 - Hypothyroidism, unspecified (7) Depression: Status: Acute Code(s): F32.A - Depression, unspecified (8) COPD (chronic obstructive pulmonary disease): Status: Chronic Code(s): J44.9 - Chronic obstructive pulmonary disease, unspecified (9) Chronic diastolic (congestive) heart failure: Status: Chronic Code(s): I50.32 - Chronic diastolic (congestive) heart failure (10) Osteoporosis: Status: Acute Code(s): M81.0 - Age-related osteoporosis without current pathological fracture (11) Rheumatoid arthritis: Status: Acute Code(s): M06.9 - Rheumatoid arthritis, unspecified Plan 76 year old male with below past medical history hospitalized for left pelvic fracture, complicated by acute respiratory failure with hypoxia secondary to atelectasis, pneumonia ruled out, pulmonary embolism ruled out, admitted to TCU with debility, here for rehabilitation, strengthening, prior to discharge home alone. * Debility - PT/OT. * Pain - Tylenol 1000mg q6h prn pain (1-3), Tramadol 50mg q6h prn pain (4-5), Oxycodone 5mg q4h prn pain (6-10). * Bowel - Miralax 17gm daily, Senna/colace 2 tablets bid, Dulcolax 10mg pr x 1 prn, MOM 30ml po x 1 prn. * Adult immunization - Administer pneumonia vaccine, covid19 vaccine, flu vaccine as appropriate. * DVT prophylaxis - Hold, anemia. * COPD - Fluticasone/salmeterol 1 puff bid, Albuterol 1-2 puffs q4h prn, Medrol dose pack. * Osteoporosis - Alendronate 70mg per week. * BPH - Finasteride 5mg daily, Tamsulosin 0.4mg bid. * Chronic diastolic congestive heart failure - Furosemide 20mg bid. * Hypothyroidism - Levothyroxine 150mcg daily. * Rheumatoid arthritis - MTX 17.5mg per week, Medrol dose pack. * Nutrition - MVI daily. * Vitamin D deficiency - D3 25mcg daily. Medications at Discharge Home Medications multivitamin with folic acid 400 mcg tablet (Thera) 1 tab PO DAILY supplement 05/21/15 cholecalciferol (vitamin D3) 25 mcg (1,000 unit) tablet (Vitamin D3) 50 mcg PO DAILY supplement 12/05/15 furosemide 20 mg tablet 20 mg PO BID water pill 12/05/15 finasteride 5 mg tablet 5 mg PO DAILY prostate 07/03/17 levothyroxine 150 mcg tablet (Synthroid) 150 mcg PO DAILY thyroid 07/03/17 alendronate 70 mg tablet 70 mg PO QWEEK osteoporosis 04/27/22 fluticasone 250 mcg-salmeterol 50 mcg/dose blistr powdr for inhalation (Advair Diskus) 1 inh inhalation BID PRN PRN Shortness Of Breath 04/27/22 tamsulosin 0.4 mg capsule 0.4 mg PO BID prostate 04/27/22 acetaminophen 500 mg tablet 1,000 mg PO Q6H PRN PRN Pain Score 1-3 #0 tabs 05/09/22 albuterol sulfate 2.5 mg/3 mL (0.083 %) solution for nebulization 2.5 mg (3 mL) inhalation Q4H.RT PRN DYSPNEA/WHEEZING/SOB #0 mL 05/09/22 arginine 7 gram-glutam 7 gram-CaHMB 1.5 [id number] oral pwd pkt (Jamil (with collagen)) 1 packet PO BIDCM #0 ea 02/02/23 methotrexate sodium 2.5 mg tablet 17.5 mg PO Mo #0 tabs 05/09/22 oxycodone 5 mg tablet 5 mg PO Q4H PRN PRN Pain Score 6-10 3 days #18 tabs 05/30 polyethylene glycol 3350 17 gram oral powder packet 17 g PO DAILY #0 ea 05/09/22 sennosides 8.6 mg-docusate sodium 50 mg tablet (Stool Softener-Stimulant Laxative) 2 tab PO BID #0 tabs 05/09/22 tramadol 50 mg tablet 50 mg PO Q6H PRN PRN Pain Score 4-5 3 days #12 tabs 05/09/22 Hospital Course Operations None Procedures None Summary of Care Provided Minutes Spent on Discharge: 35 Hospital Course: 76 year old male with below past medical history hospitalized for left pelvic fracture, complicated by acute respiratory failure with hypoxia secondary to atelectasis, pneumonia ruled out, pulmonary embolism ruled out, admitted to TCU with debility, here for rehabilitation, strengthening, prior to discharge home alone. Discharge to [facility] 05/12/2022 pending appeal, intermediate, private pay. Physical Exam Const alert General Appearance: cooperative HEENT normocephalic Eyes PERRL and EOMs intact bilaterally Neck supple, no JVD and no carotid bruits Resp normal respiratory effort, normal air movement and clear to auscultation bilaterally Cardio regular rate and regular rhythm GI normal to inspection, nondistended, normoactive bowel sounds, non-tender and non-distended Extremity normal capillary refill General Extremity: Negative for edema Skin no rashes or lesions noted General Skin Exam: no breakdown Psych affect normal Appearance: appropriate Weight / BMI Weight Weight: 92.261 kg Body Mass Index (BMI) 32.5 ABG / Lab / Microbiology Data Result Diagrams: 05/05/22 06:15 05/04/22 07:46 Microbiology: Microbiology 05/01/22 05:55 Nasal Secretion SARS-CoV-2 Antigen (Rapid) - Final 04/29/22 06:15 Nasal Secretion SARS-CoV-2 Antigen (Rapid) - Final 04/27/22 06:53 Nasal Secretion SARS-CoV-2 Antigen (Rapid) - Final D/C Instructions Discharge Diet: No restrictions Discharge Activity: Return to Normal Activity, May Shower and Use Walker Weight Bearing Status: Weight bearing as tolerated Call your doctor if you observe: Fever of 101 or Higher, Inability to urinate, Inability to have a bowel movement, Shortness of breath, Dizziness, Fainting spells, Swelling in the ankles, Chest pain and Uncontrolled pain Additional Instructions: Discharge to [facility] 05/12/2022 pending appeal, intermediate, private pay. Meaningful Use Info Meaningful Use Diagnoses (Choose all that apply): None applicable Discharge Plan Admission Admit Date/Time: 04/27/22 01:19 Primary Reason for Your Visit: Debility. Attending Provider: Hardeep Solis Chi Primary Care Provider: Matthew Samaniego Instructions Additional Instructions / Restrictions: Discharge to [facility] 05/12/2022 pending appeal, intermediate, private pay. Discharge Orders/Prescriptions Prescriptions: New acetaminophen 500 mg Tablet 1,000 mg PO Q6H PRN PRN (Reason: Pain Score 1-3) Qty: 0 0RF methotrexate sodium 2.5 mg Tablet 17.5 mg PO Mo Qty: 0 0RF albuterol sulfate 2.5 mg /3 mL (0.083 %) Solution For Nebulization 2.5 mg inhalation Q4H.RT PRN (Reason: DYSPNEA/WHEEZING/SOB) Qty: 0 0RF Jamil (with collagen) 7-7-1.5 gram Powder In Packet 1 packet PO BIDCM Qty: 0 0RF polyethylene glycol 3350 17 gram Powder In Packet 17 g PO DAILY Qty: 0 0RF sennosides-docusate sodium [Stool Softener-Stimulant Laxat] 8.6-50 mg Tablet 2 tab PO BID Qty: 0 0RF oxycodone 5 mg Tablet 5 mg PO Q4H PRN PRN (Reason: Pain Score 6-10) 3 Days Qty: 18 0RF tramadol 50 mg Tablet 50 mg PO Q6H PRN PRN (Reason: Pain Score 4-5) 3 Days Qty: 12 0RF Continued multivitamin with folic acid [Thera] 1 TABLET tablet 1 tab PO DAILY furosemide 20 MG tablet 20 mg PO BID cholecalciferol (vitamin D3) [Vitamin D3] 1,000 UNIT tablet 50 mcg PO DAILY levothyroxine [Synthroid] 150 MCG tablet 150 mcg PO DAILY finasteride 5 MG tablet 5 mg PO DAILY fluticasone propion-salmeterol [Advair Diskus] 250-50 mcg/dose Blister With Device 1 inh INHALATION BID PRN PRN (Reason: Shortness Of Breath) alendronate 70 mg Tablet 70 mg PO QWEEK tamsulosin 0.4 mg Capsule 0.4 mg PO BID Discontinued albuterol sulfate 1 INHALER inhaler 1 - 2 puff INHALATION Q4H PRN PRN (Reason: Shortness Of Breath) Qty: 1 0RF methylprednisolone [Medrol] 4 mg Tablet 4 mg PO DAILY Rx Instructions: as directed on package labeling for 6 days methotrexate sodium [Methotrexate (Anti-Rheumatic)] 2.5 mg Tablet 2.5 mg PO QWEEK Referrals / Follow Up: Matthew Samaniego MD [Primary Care Provider] - Disposition Disposition (needs filled in before D/C Order can be placed): NonSkilled NH/Intermed Care
--- NOTE | 2022-05-09 20:29 | TREXTCAR_ITS ---
Diet Diet Order/Speech Therapy: 04/27/22 02:31 Diet: Regular - General Liquid Consistency:: Regular/Thin Dietary Modifications:: No Added Salt Routine Orders/Code Status Code Status: Full Code Wound(s) cleft/coccyx: Wound Type: Pressure Injury Dressing Change: Triad Left ischium: Wound Type: Pressure Injury Dressing Change: AntiMicrobial (Aquacel AG, etc) Left posterior calf proximal: Wound Type: Stasis Ulcer Dressing Change: dry dressing Left posterior calf distal: Wound Type: Stasis Ulcer Dressing Change: dry dressing left anterior lower leg: Wound Type: scabbed ulcer Dressing Change: intact, due to change 05/02 Therapies Weight Bearing: Weight bearing as tolerated Extremity Affected:: Bilateral Lower Physical Therapy: Eval and Treat Occupational Therapy: Eval and Treat Problem/Diagnosis (1) Debility: Status: Acute Code(s): R53.81 - Other malaise (2) Acute respiratory failure with hypoxia: Status: Acute Code(s): J96.01 - Acute respiratory failure with hypoxia (3) Fracture of left pelvis: Status: Acute Code(s): S32.9XXA - Fracture of unspecified parts of lumbosacral spine and pelvis, initial encounter for closed fracture (4) Vitamin D deficiency: Status: Acute Code(s): E55.9 - Vitamin D deficiency, unspecified (5) BPH (benign prostatic hyperplasia): Status: Acute Code(s): N40.0 - Benign prostatic hyperplasia without lower urinary tract symptoms (6) Hypothyroidism: Status: Acute Code(s): E03.9 - Hypothyroidism, unspecified (7) Depression: Status: Acute Code(s): F32.A - Depression, unspecified (8) COPD (chronic obstructive pulmonary disease): Status: Chronic Code(s): J44.9 - Chronic obstructive pulmonary disease, unspecified (9) Chronic diastolic (congestive) heart failure: Status: Chronic Code(s): I50.32 - Chronic diastolic (congestive) heart failure (10) Osteoporosis: Status: Acute Code(s): M81.0 - Age-related osteoporosis without current pathological fracture (11) Rheumatoid arthritis: Status: Acute Code(s): M06.9 - Rheumatoid arthritis, unspecified Plan 76 year old male with below past medical history hospitalized for left pelvic fracture, complicated by acute respiratory failure with hypoxia secondary to atelectasis, pneumonia ruled out, pulmonary embolism ruled out, admitted to TCU with debility, here for rehabilitation, strengthening, prior to discharge home alone. * Debility - PT/OT. * Pain - Tylenol 1000mg q6h prn pain (1-3), Tramadol 50mg q6h prn pain (4-5), Oxycodone 5mg q4h prn pain (6-10). * Bowel - Miralax 17gm daily, Senna/colace 2 tablets bid, Dulcolax 10mg pr x 1 prn, MOM 30ml po x 1 prn. * Adult immunization - Administer pneumonia vaccine, covid19 vaccine, flu vaccine as appropriate. * DVT prophylaxis - Hold, anemia. * COPD - Fluticasone/salmeterol 1 puff bid, Albuterol 1-2 puffs q4h prn, Medrol dose pack. * Osteoporosis - Alendronate 70mg per week. * BPH - Finasteride 5mg daily, Tamsulosin 0.4mg bid. * Chronic diastolic congestive heart failure - Furosemide 20mg bid. * Hypothyroidism - Levothyroxine 150mcg daily. * Rheumatoid arthritis - MTX 17.5mg per week, Medrol dose pack. * Nutrition - MVI daily. * Vitamin D deficiency - D3 25mcg daily. Allergies/Procedures Done in Hospital Allergies acyclovir Allergy (Verified 12/05/15 13:25) Swelling doxycycline Allergy (Verified 12/07/15 13:57) MAKES ME YOUNG gabapentin Allergy (Verified 12/05/15 13:25) Swelling Procedures: None Type of Care/Length of Stay Estimated LOS: More Than 30 Days Type of Care Needed: Intermediate Rehab Potential: Fair Prognosis: Fair Additional Orders/Day of Discharge Additional Orders: part B therapies Day of Discharge: 05/12/22 Dietary and Speech Recommendations Dietitian Recommendations/Changes: Will change diet to Regular No Added Salt d/t pmhx Will continue Jamil bid to help w/ wound healing Discharge Plan Admission Admit Date/Time: 04/27/22 01:19 Primary Reason for Your Visit: Debility. Attending Provider: Hardeep Solis Chi Primary Care Provider: Matthew Samaniego Instructions Additional Instructions / Restrictions: Discharge to [facility] 05/12/2022 pending appeal, intermediate, private pay. Discharge Orders/Prescriptions Prescriptions: New acetaminophen 500 mg Tablet 1,000 mg PO Q6H PRN PRN (Reason: Pain Score 1-3) Qty: 0 0RF methotrexate sodium 2.5 mg Tablet 17.5 mg PO Mo Qty: 0 0RF albuterol sulfate 2.5 mg /3 mL (0.083 %) Solution For Nebulization 2.5 mg inhalation Q4H.RT PRN (Reason: DYSPNEA/WHEEZING/SOB) Qty: 0 0RF Jamil (with collagen) 7-7-1.5 gram Powder In Packet 1 packet PO BIDCM Qty: 0 0RF polyethylene glycol 3350 17 gram Powder In Packet 17 g PO DAILY Qty: 0 0RF sennosides-docusate sodium [Stool Softener-Stimulant Laxat] 8.6-50 mg Tablet 2 tab PO BID Qty: 0 0RF oxycodone 5 mg Tablet 5 mg PO Q4H PRN PRN (Reason: Pain Score 6-10) 3 Days Qty: 18 0RF tramadol 50 mg Tablet 50 mg PO Q6H PRN PRN (Reason: Pain Score 4-5) 3 Days Qty: 12 0RF Continued multivitamin with folic acid [Thera] 1 TABLET tablet 1 tab PO DAILY furosemide 20 MG tablet 20 mg PO BID cholecalciferol (vitamin D3) [Vitamin D3] 1,000 UNIT tablet 50 mcg PO DAILY levothyroxine [Synthroid] 150 MCG tablet 150 mcg PO DAILY finasteride 5 MG tablet 5 mg PO DAILY fluticasone propion-salmeterol [Advair Diskus] 250-50 mcg/dose Blister With Device 1 inh INHALATION BID PRN PRN (Reason: Shortness Of Breath) alendronate 70 mg Tablet 70 mg PO QWEEK tamsulosin 0.4 mg Capsule 0.4 mg PO BID Discontinued albuterol sulfate 1 INHALER inhaler 1 - 2 puff INHALATION Q4H PRN PRN (Reason: Shortness Of Breath) Qty: 1 0RF methylprednisolone [Medrol] 4 mg Tablet 4 mg PO DAILY Rx Instructions: as directed on package labeling for 6 days methotrexate sodium [Methotrexate (Anti-Rheumatic)] 2.5 mg Tablet 2.5 mg PO QWEEK Referrals / Follow Up: Matthew Samaniego MD [Primary Care Provider] - Disposition Disposition (needs filled in before D/C Order can be placed): NonSkilled NH/Intermed Care
[2022-05-10] MEDS: Finasteride 5 MG Tablet PO (06:04)
[2022-05-10] MEDS: Senna/Docusate Sodium 1 Tablet 2 TABLET PO (06:04)
[2022-05-10] MEDS: Levothyroxine 150 MCG Tablet PO (06:04)
[2022-05-10] MEDS: Fluticasone/Salmeterol 232-14 Inhaler 1 PUFF INHALATION ×2 (06:05→17:31)
[2022-05-10] MEDS: Furosemide 20 MG Tablet PO ×2 (06:05→13:45)
[2022-05-10] MEDS: Cholecalciferol (VIT D3) 25 MCG TABLET (1,000 UNITS) 50 MCG PO (06:05)
[2022-05-10 06:13] VITALS: BP 128/71; PULSE 75; RESP 16
[2022-05-10 07:10] VITALS: O2SAT 94
[2022-05-10 07:11] VITALS: O2SAT 92
[2022-05-10] MEDS: Juven (unflavored) Packet 1 PACKET PO ×2 (08:55→17:31)
[2022-05-10] MEDS: Multivitamins,Therapeutic Tablet 1 TABLET PO (08:55)
[2022-05-10] MEDS: Tamsulosin HCl 0.4 MG Capsule PO ×2 (08:55→17:31)
[2022-05-10] MEDS: oxyCODONE 5 MG Tablet PO ×2 (09:09→19:53)
[2022-05-10] MEDS: Acetaminophen 500 MG Tablet 1000 MG PO (09:09)
[2022-05-10 09:52] VITALS: O2SAT 93
--- NOTE | 2022-05-10 13:13 | CASEMGMT ---
Social Work BIMS () and PHQ-9 (08/31) completed for MDS assessment. Eli Parada MSW DRIVER MANAGER
[2022-05-10 14:41] VITALS: BP 114/63; PULSE 78; RESP 19; TEMP 36.1; O2SAT 93
[2022-05-10 19:57] VITALS: PULSE 79; RESP 16
[2022-05-11] MEDS: traMADol 50 MG Tablet PO ×2 (04:29→14:00)
[2022-05-11] MEDS: Fluticasone/Salmeterol 232-14 Inhaler 1 PUFF INHALATION ×2 (04:30→16:49)
[2022-05-11] MEDS: Cholecalciferol (VIT D3) 25 MCG TABLET (1,000 UNITS) 50 MCG PO (04:30)
[2022-05-11] MEDS: Finasteride 5 MG Tablet PO (04:31)
[2022-05-11] MEDS: Furosemide 20 MG Tablet PO ×2 (04:31→13:41)
[2022-05-11] MEDS: Levothyroxine 150 MCG Tablet PO (04:31)
[2022-05-11 07:29] LABS: Absolute Lymphocyte Count 2.06 X10^3/uL (0.83-4.51); Absolute Neutrophil Count 9.3 X10^3/uL (2.0-7.7); Basophil# 0.12 X10^3/uL; Basophil% 0.9 % (0-1); Eosinophil# 1.05 X10^3/uL; Eosinophils% 7.7 % (0-5); Hematocrit 33.4 % (40-54); Hemoglobin 10.1 g/dL (13.0-16.5); Lymphocyte # 2.06 X10^3/ul (0.83-4.51); Mean Corp Hgb Conc 30.2 g/dL (32-36); Mean Corpuscular Hgb 24.9 pg (27.0-32.0); Mean Corpuscular Volume 82.5 fL (80-94); Mean Platelet Vol. 10.6 fl (6.2-12.0); NRBC Flagged by Analyzer 6.9 % (0-5); Neutrophil # 9.29 X10^3/uL (2.7-7.7); Neutrophil % 67.8 % (47-70); POSITIVE COUNT YES; POSITIVE MORPHOLOGY YES; Platelet Count 395 K/mm3 (150-450); RBC Distribution Width CV 22.9 % (11.6-14.6); RBC Distribution Width SD 64.2 fl (35.1-43.9); Red Blood Count 4.05 M/mm3 (4.6-6.2); White Blood Count 13.7 K/mm3 (4.4-11.0)
[2022-05-11 07:30] LABS: Differential Indicated SCAN CRITERIA MET
[2022-05-11 07:35] VITALS: O2SAT 95
[2022-05-11 07:50] LABS: Anion Gap 7 (5-15); BUN 25 mg/dL (7-18); Calcium,Total 8.9 mg/dL (8.5-10.1); Chloride 99 mmol/L (98-107); Creatinine, Serum 0.62 mg/dL (0.70-1.30); EST Glomerular Filtration Rate 133 mL/min (>60); Est Glom Filt Rate - Afr Amer 161 mL/min (>60); Glucose 106 mg/dL (74-106); Sodium Level 136 mmol/L (136-145)
[2022-05-11] MEDS: Multivitamins,Therapeutic Tablet 1 TABLET PO (08:43)
[2022-05-11] MEDS: Tamsulosin HCl 0.4 MG Capsule PO ×2 (08:43→16:50)
[2022-05-11] MEDS: Juven (unflavored) Packet 1 PACKET PO ×2 (08:43→16:50)
[2022-05-11 08:50] LABS: Anisocytosis 2+; Differential Comment SCANNED; Howell-Jolly Body 1+; Hypochromasia 2+; Macrocytosis 1+; Microcytosis 1+; Polychromasia 1+; Target Cells 2+
[2022-05-11 14:52] VITALS: BP 117/68; PULSE 90; RESP 18; TEMP 36.3; O2SAT 94
[2022-05-11] MEDS: Senna/Docusate Sodium 1 Tablet 2 TABLET PO (16:50)
--- NOTE | 2022-05-11 17:37 | CASEMGMT ---
Social Work Note Patient's appeal was won per the [employer] website. EM Parada informed and will inform MD Solis. EM informed KLARISSA Cline patient won his appeal and will not be discharging tomorrow. KLARISSA Cline will inform patient he won the appeal. EM contacted patient's brother, Vicente, to inform him patient won his appeal and reminded him patient's benefits will be exhausted by 05/18/22. Patient's brother reported an understanding and inquired about SNF placement when he has to d/c. EM explained EM Benitze would follow up with patient and family next week to continue to assist with discharge planning. Patient's brother also inquired about SNFs in [facility] in [facility]. EM Benitez to follow up with [facility]. EM contacted [facility] via [employer] and informed them patient will not be discharging tomorrow as he will be staying at TCU. EM contacted [facility] and canceled patient's transportation. [facility] staff stated they will make patient a will call so his information is still in the system and a ride can resume when/if he's ready. Plan: remain at TCU, appeal was won KOMAL Weinberg
[2022-05-12] MEDS: Fluticasone/Salmeterol 232-14 Inhaler 1 PUFF INHALATION ×2 (06:51→16:17)
[2022-05-12] MEDS: Cholecalciferol (VIT D3) 25 MCG TABLET (1,000 UNITS) 50 MCG PO (06:52)
[2022-05-12] MEDS: Furosemide 20 MG Tablet PO ×2 (06:52→13:01)
[2022-05-12] MEDS: Finasteride 5 MG Tablet PO (06:53)
[2022-05-12] MEDS: Levothyroxine 150 MCG Tablet PO (06:54)
[2022-05-12] MEDS: Tamsulosin HCl 0.4 MG Capsule PO ×2 (08:10→16:17)
[2022-05-12] MEDS: Multivitamins,Therapeutic Tablet 1 TABLET PO (08:10)
[2022-05-12] MEDS: Juven (unflavored) Packet 1 PACKET PO ×2 (08:10→16:17)
[2022-05-12 15:45] VITALS: BP 149/84; PULSE 87; RESP 16; TEMP 36.9; O2SAT 91
[2022-05-12 20:15] VITALS: PULSE 71; RESP 18; O2SAT 88
[2022-05-12] MEDS: traMADol 50 MG Tablet PO (21:30)
[2022-05-13] MEDS: Fluticasone/Salmeterol 232-14 Inhaler 1 PUFF INHALATION ×2 (06:40→17:25)
[2022-05-13] MEDS: Finasteride 5 MG Tablet PO (06:40)
[2022-05-13] MEDS: Furosemide 20 MG Tablet PO ×2 (06:41→13:28)
[2022-05-13] MEDS: Cholecalciferol (VIT D3) 25 MCG TABLET (1,000 UNITS) 50 MCG PO (06:41)
[2022-05-13] MEDS: Methotrexate 2.5 MG Tablet 17.5 MG PO (06:41)
[2022-05-13] MEDS: Levothyroxine 150 MCG Tablet PO (06:41)
[2022-05-13] MEDS: Alendronate Sodium 70 MG Tablet PO (06:41)
--- NOTE | 2022-05-13 06:58 | NURSING ---
Patient has BLE edema, 2+ pitting. RLE with erythema and somewhat warm to touch. Both legs wrapped with SHERRY wraps this AM to attempt to reduce edema. Will continue to monitor.
[2022-05-13] MEDS: Juven (unflavored) Packet 1 PACKET PO ×2 (08:12→17:25)
[2022-05-13] MEDS: Tamsulosin HCl 0.4 MG Capsule PO ×2 (08:12→17:26)
[2022-05-13] MEDS: Multivitamins,Therapeutic Tablet 1 TABLET PO (08:12)
--- NOTE | 2022-05-13 08:39 | CASEMGMT ---
Social Work Followed up with brother and reminded him he has a [facility] SNF list. Offered to resend. Brother denied as pt is still wanting [facility]. SW to keep pt and brother up to date on insurance coverage. Brother appreciative. Will continue to follow. Eli Parada, RESEARCH GENETICIST AUTOMOBILE SERVICE WRITER
[2022-05-13 10:00] VITALS: PULSE 95; RESP 16; O2SAT 90
[2022-05-13] MEDS: Cephalexin 500 MG Capsule PO ×3 (12:05→23:50)
[2022-05-13] MEDS: traMADol 50 MG Tablet PO (12:07)
[2022-05-13 15:22] VITALS: BP 120/69; PULSE 89; RESP 16; TEMP 36.7; O2SAT 90
[2022-05-13] MEDS: Senna/Docusate Sodium 1 Tablet 2 TABLET PO (17:25)
[2022-05-13] MEDS: Menthol/Lanolin/Calamine/Znox 113 GM Tube 1 APPLIC TOPICAL (17:26)
--- NOTE | 2022-05-13 19:02 | CASEMGMT ---
Addendum entered by Eli Parada 05/16/22 11:37: Spoke with [facility] and scheduled transport for 1100 on 05/18. Original Note: Social Work Spoke with pt and brother to update on pt winning appeal. Plan remains DC to [facility]. SW to schedule transport. Educated to [facility] 05/15 and DC 05/18, at exhaustion of benefit period. Pt and brother expressed understanding. Plan: DC to [facility] 05/18 MOE SousaW
[2022-05-13] MEDS: oxyCODONE 5 MG Tablet PO (20:30)
[2022-05-14] MEDS: Acetaminophen 500 MG Tablet 1000 MG PO (05:58)
[2022-05-14] MEDS: Menthol/Lanolin/Calamine/Znox 113 GM Tube 1 APPLIC TOPICAL ×2 (05:59→17:51)
[2022-05-14] MEDS: Fluticasone/Salmeterol 232-14 Inhaler 1 PUFF INHALATION ×2 (05:59→17:51)
[2022-05-14] MEDS: Finasteride 5 MG Tablet PO (06:00)
[2022-05-14] MEDS: Furosemide 20 MG Tablet PO ×2 (06:00→14:02)
[2022-05-14] MEDS: Cholecalciferol (VIT D3) 25 MCG TABLET (1,000 UNITS) 50 MCG PO (06:00)
[2022-05-14] MEDS: Cephalexin 500 MG Capsule PO ×4 (06:00→23:44)
[2022-05-14] MEDS: Levothyroxine 150 MCG Tablet PO (06:00)
[2022-05-14] MEDS: Tamsulosin HCl 0.4 MG Capsule PO ×2 (08:18→17:51)
[2022-05-14] MEDS: oxyCODONE 5 MG Tablet PO ×2 (08:18→22:45)
[2022-05-14] MEDS: Juven (unflavored) Packet 1 PACKET PO ×2 (08:18→17:51)
[2022-05-14] MEDS: Multivitamins,Therapeutic Tablet 1 TABLET PO (08:18)
[2022-05-14 12:42] VITALS: O2SAT 90
--- NOTE | 2022-05-14 15:40 | WOUNDNOTE ---
wound photo: left posterior lower leg
--- NOTE | 2022-05-14 15:41 | WOUNDNOTE ---
wound photo: left ischium
[2022-05-14 16:00] VITALS: BP 119/60; PULSE 83; RESP 17; TEMP 37; O2SAT 94
[2022-05-14] MEDS: traMADol 50 MG Tablet PO (19:47)
[2022-05-15 04:30] VITALS: BP 123/63; PULSE 88; RESP 20; O2SAT 92
[2022-05-15] MEDS: Fluticasone/Salmeterol 232-14 Inhaler 1 PUFF INHALATION ×2 (04:33→17:40)
[2022-05-15] MEDS: Menthol/Lanolin/Calamine/Znox 113 GM Tube 1 APPLIC TOPICAL ×2 (04:33→17:39)
[2022-05-15] MEDS: Cephalexin 500 MG Capsule PO ×4 (04:34→23:52)
[2022-05-15] MEDS: Furosemide 20 MG Tablet PO ×2 (04:34→14:08)
[2022-05-15] MEDS: Finasteride 5 MG Tablet PO (04:34)
[2022-05-15] MEDS: Levothyroxine 150 MCG Tablet PO (04:35)
[2022-05-15] MEDS: Cholecalciferol (VIT D3) 25 MCG TABLET (1,000 UNITS) 50 MCG PO (04:35)
[2022-05-15] MEDS: Juven (unflavored) Packet 1 PACKET PO ×2 (08:57→17:39)
[2022-05-15] MEDS: Tamsulosin HCl 0.4 MG Capsule PO ×2 (08:57→17:39)
[2022-05-15] MEDS: Multivitamins,Therapeutic Tablet 1 TABLET PO (08:57)
[2022-05-15] MEDS: oxyCODONE 5 MG Tablet PO (08:57)
[2022-05-15 14:21] VITALS: BP 119/60; PULSE 85; RESP 14; TEMP 36.7; O2SAT 91
[2022-05-15 14:42] VITALS: O2SAT 90
[2022-05-15 22:33] VITALS: PULSE 78; RESP 18; O2SAT 88
[2022-05-16] MEDS: Cholecalciferol (VIT D3) 25 MCG TABLET (1,000 UNITS) 50 MCG PO (05:47)
[2022-05-16] MEDS: Levothyroxine 150 MCG Tablet PO (05:47)
[2022-05-16] MEDS: Finasteride 5 MG Tablet PO (05:47)
[2022-05-16] MEDS: Cephalexin 500 MG Capsule PO ×4 (05:47→23:56)
[2022-05-16] MEDS: Furosemide 20 MG Tablet PO ×2 (05:47→13:38)
[2022-05-16] MEDS: Fluticasone/Salmeterol 232-14 Inhaler 1 PUFF INHALATION ×2 (05:49→17:35)
[2022-05-16] MEDS: Menthol/Lanolin/Calamine/Znox 113 GM Tube 1 APPLIC TOPICAL ×2 (05:52→17:34)
[2022-05-16] MEDS: Juven (unflavored) Packet 1 PACKET PO ×2 (08:03→17:35)
[2022-05-16] MEDS: oxyCODONE 5 MG Tablet PO ×2 (08:03→17:34)
[2022-05-16] MEDS: Multivitamins,Therapeutic Tablet 1 TABLET PO (08:04)
[2022-05-16] MEDS: Tamsulosin HCl 0.4 MG Capsule PO ×2 (08:04→17:35)
[2022-05-16 10:40] VITALS: PULSE 76; RESP 18; O2SAT 92
[2022-05-16 15:18] VITALS: BP 111/67; PULSE 94; RESP 16; TEMP 37; O2SAT 91
--- NOTE | 2022-05-16 15:40 | CHAPLAIN ---
Type of Pastoral Visit ___ Initial Visit _x__ Follow-up Visit ___ On-call Visit ___ General Patient Visit ___ Spiritual Assessment ___ Family Conference ___ Bereavement ___ Rapid Response ___ Code Blue ___ Other (describe below) Pastoral Care Referral From _x__ Patient ___ Family ___ Nurse ___ Physician ___ Blade Aligner ___ Installer Helper ___ Other (describe below) Sacrament/Intervention _x__ Active listening ___ Anointing ___ Confucianist ___ Bereavement ___ Communion ___ Caprice exploration ___ _x__ Life review ___ Prayer ___ Reconciliation ___ Sacrament of Sick _x__ Supportive presence ___ Wedding ___ Other (describe below) Pastoral Comments patient welcomes this hat cleaner for a follow up visit as he looks through his mail throughout the visit; pt is talkative and gives some life stories; pt discusses topic of of friends in this stage of life; pt expresses words and his ideas philosophically; pt speaks of discharge and of a follow up visit so we can talk about sports, politics, and the wellness of the human spirit; OT came for therapy session
--- NOTE | 2022-05-16 18:40 | RAD_ITS ---
STUDY: X-RAY - PELVIS AND RIGHT HIP REASON FOR EXAM: Male, 76 years old. Severe pain. TECHNIQUE: 6 3 views of the pelvis and hip. COMPARISON: July 03, 2017 right hip x-ray. FINDINGS: There is a non-specific bowel gas pattern. Normal visualized soft tissue structures. Normal bilateral iliac wings, sacroiliac joints and visualized sacrum. Normal bilateral superior and inferior pubic rami. Normal pubic symphysis. Normal bilateral ischial tuberosities. The visualized right hip arthroplasty which appears to be in anatomic position and alignment. There is mild degenerative change of the left hip joint. There is degenerative change within the visualized lumbar spine. There is mild narrowing of the left hip joint. RAD/HIP, UNI W/ Pelvis 2-3 Views IMPRESSION: There is visualized right hip arthroplasty. Since prior study there is little interval change perhaps some remodeling of the joint space without visualized acute fracture. There is no definitive evidence of loosening or significant change. Mild degenerative change of the left hip joint. Electronically Signed: Kely Melo MD at 22:21 EST Reading Location ID and State: [facility] / [place] Tel , Service support ,
--- NOTE | 2022-05-16 18:56 | NURSING ---
PT HAD RT HIP SURGERY IN 2016. DURING THERAPY HE IS HAVING RT HIP PAIN REPORTING SEVERE AT TIMES. DR WOODS UDPATED, NEW ORDER RT HIP AND CT LT HIP ULCERATION OF GLUTEAL AREA
[2022-05-17] MEDS: traMADol 50 MG Tablet PO (00:03)
[2022-05-17] MEDS: Menthol/Lanolin/Calamine/Znox 113 GM Tube 1 APPLIC TOPICAL ×2 (05:41→17:22)
[2022-05-17] MEDS: Senna/Docusate Sodium 1 Tablet 2 TABLET PO (05:41)
[2022-05-17] MEDS: Cholecalciferol (VIT D3) 25 MCG TABLET (1,000 UNITS) 50 MCG PO (05:42)
[2022-05-17] MEDS: Finasteride 5 MG Tablet PO (05:42)
[2022-05-17] MEDS: Furosemide 20 MG Tablet PO ×2 (05:42→14:07)
[2022-05-17] MEDS: Levothyroxine 150 MCG Tablet PO (05:42)
[2022-05-17] MEDS: Polyethylene Glycol 3350 17 GM PACKET PO (05:42)
[2022-05-17] MEDS: Cephalexin 500 MG Capsule PO ×4 (05:43→23:06)
[2022-05-17] MEDS: Fluticasone/Salmeterol 232-14 Inhaler 1 PUFF INHALATION ×2 (05:43→17:21)
[2022-05-17 07:00] VITALS: O2SAT 91
[2022-05-17] MEDS: oxyCODONE 5 MG Tablet PO (07:59)
[2022-05-17] MEDS: Tamsulosin HCl 0.4 MG Capsule PO ×2 (08:00→17:22)
[2022-05-17] MEDS: Juven (unflavored) Packet 1 PACKET PO ×2 (08:00→17:22)
[2022-05-17] MEDS: Multivitamins,Therapeutic Tablet 1 TABLET PO (08:00)
--- NOTE | 2022-05-17 11:45 | PCA ---
CT pelvis prior auth approval [id number] 05-17-22 thru 07-16-22 [facility] J [phone]
--- NOTE | 2022-05-17 13:48 | MDS.RN ---
Pain interview for CANDIDA 05/18/22
[2022-05-17 15:57] VITALS: BP 121/70; PULSE 86; RESP 16; TEMP 36.7; O2SAT 93
[2022-05-17 20:27] VITALS: PULSE 83; RESP 16; O2SAT 92
--- NOTE | 2022-05-18 05:31 | PCA ---
pt has transferred self to the bathroom twice instead of waiting for staff to get there after he has called
[2022-05-18] MEDS: Senna/Docusate Sodium 1 Tablet 2 TABLET PO (06:12)
[2022-05-18] MEDS: Cephalexin 500 MG Capsule PO (06:12)
[2022-05-18] MEDS: Polyethylene Glycol 3350 17 GM PACKET PO (06:12)
[2022-05-18] MEDS: Furosemide 20 MG Tablet PO (06:12)
[2022-05-18] MEDS: Fluticasone/Salmeterol 232-14 Inhaler 1 PUFF INHALATION (06:12)
[2022-05-18] MEDS: Menthol/Lanolin/Calamine/Znox 113 GM Tube 1 APPLIC TOPICAL (06:12)
[2022-05-18] MEDS: Finasteride 5 MG Tablet PO (06:12)
[2022-05-18] MEDS: Levothyroxine 150 MCG Tablet PO (06:13)
[2022-05-18] MEDS: Cholecalciferol (VIT D3) 25 MCG TABLET (1,000 UNITS) 50 MCG PO (06:13)
[2022-05-18 07:11] VITALS: O2SAT 93
[2022-05-18 07:30] LABS: Absolute Lymphocyte Count 2.16 X10^3/uL (0.83-4.51); Absolute Neutrophil Count 6.6 X10^3/uL (2.0-7.7); Basophil# 0.13 X10^3/uL; Basophil% 1.2 % (0-1); Eosinophil# 0.92 X10^3/uL; Eosinophils% 8.4 % (0-5); Hematocrit 33.7 % (40-54); Hemoglobin 10.5 g/dL (13.0-16.5); Lymphocyte # 2.16 X10^3/ul (0.83-4.51); Lymphocyte % 19.7 % (19-41); Mean Corp Hgb Conc 31.2 g/dL (32-36); Mean Corpuscular Hgb 25.5 pg (27.0-32.0); Mean Corpuscular Volume 81.8 fL (80-94); Mean Platelet Vol. 10.9 fl (6.2-12.0); NRBC Flagged by Analyzer 15.6 % (0-5); Neutrophil # 6.58 X10^3/uL (2.7-7.7); POSITIVE COUNT YES; POSITIVE MORPHOLOGY YES; Platelet Count 386 K/mm3 (150-450); RBC Distribution Width CV 22.5 % (11.6-14.6); RBC Distribution Width SD 60.4 fl (35.1-43.9); Red Blood Count 4.12 M/mm3 (4.6-6.2)
[2022-05-18 07:54] LABS: Anion Gap 8 (5-15); BUN 25 mg/dL (7-18); BUN/Creat Ratio 31.7 RATIO (10-20); Chloride 101 mmol/L (98-107); Creatinine, Serum 0.79 mg/dL (0.70-1.30); EST Glomerular Filtration Rate 102 mL/min (>60); Est Glom Filt Rate - Afr Amer 123 mL/min (>60); Glucose 116 mg/dL (74-106); Potassium 3.7 mmol/L (3.5-5.1); Sodium Level 137 mmol/L (136-145)
[2022-05-18 08:08] LABS: Differential Indicated SCAN CRITERIA MET
[2022-05-18] MEDS: Tamsulosin HCl 0.4 MG Capsule PO (08:46)
[2022-05-18] MEDS: Multivitamins,Therapeutic Tablet 1 TABLET PO (08:46)
[2022-05-18] MEDS: Juven (unflavored) Packet 1 PACKET PO (08:46)
[2022-05-18 09:56] LABS: Anisocytosis 3+; Differential Comment SCANNED; Hypochromasia 1+; Macrocytosis 2+; Microcytosis 1+; Polychromasia 1+
[2022-05-18 09:57] LABS: Basophilic Stippling 1+; Howell-Jolly Body 1+; Schistocytes 1+; Target Cells 1+
[2022-05-18] MEDS: traMADol 50 MG Tablet PO (10:26)
[2022-05-18 10:29] VITALS: BP 122/54; PULSE 100; RESP 20; TEMP 36.8; O2SAT 93
--- NOTE | 2022-05-18 10:47 | NURSING ---
Oxycodone and Tramadol Prescription Given to family/Patient. Dafne CYR verified.
== END 2022-05-18 11:00 | disposition intermediate care facility (04) | DRG 559 ==
PROVIDERS: Admitting Provider Family Medicine Geriatric Medicine; PCP Internal Medicine Cardiovascular Disease; Visit Provider Family Medicine Geriatric Medicine
DX: S32.9XXD Fracture of unspecified parts of lumbosacral spine and pelvis, subsequent encounter for fracture with routine healing (principal); J96.01 Acute respiratory failure with hypoxia; L89.223 Pressure ulcer of left hip, stage 3; I50.32 Chronic diastolic (congestive) heart failure; L97.229 Non-pressure chronic ulcer of left calf with unspecified severity; L89.159 Pressure ulcer of sacral region, unspecified stage; J44.9 Chronic obstructive pulmonary disease, unspecified; M06.9 Rheumatoid arthritis, unspecified; F17.210 Nicotine dependence, cigarettes, uncomplicated; E03.9 Hypothyroidism, unspecified; E55.9 Vitamin D deficiency, unspecified; W19.XXXD Unspecified fall, subsequent encounter; N40.0 Benign prostatic hyperplasia without lower urinary tract symptoms; F32.A Depression, unspecified; Z79.899 Other long term (current) drug therapy; Z79.890 Hormone replacement therapy; M81.0 Age-related osteoporosis without current pathological fracture
CPT/HCPCS: 36415; 36600; 71046; 73030; 73502; 80048; 82803; 85025; 87426; 87811; 97110; 97116; 97162; 97166; 97530; 97535; 97802; J8610

== ENCOUNTER → 2022-05-13 | Outpatient (CLI) | payer MEDICARE, SELFPAY ==
--- NOTE | 2022-05-13 08:47 | VDLE_ITS ---
Reason For Study: Swelling RIGHT LEFT GSV is normal. CFV is compressible, spontaneous, phasic, CFV is compressible, spontaneous, phasic, competent, and demonstrates normal competent and demonstrates normal augmentation. augmentation. FV is compressible, spontaneous, phasic, competent and demonstrates normal augmentation. POP V is compressible, spontaneous, phasic, competent and demonstrates normal augmentation. T/P Trunk is compressible. PTV is compressible. RT PerV is compressible. Procedure This is a venous duplex using B-mode, color flow and spectral Doppler. Exam performed portable in patient room. A preliminary report was called and/or faxed to TCU. VL/Venous Duplex US, Unilateral Interpretation Summary There is no evidence of right lower extremity deep vein thrombosis. Right great saphenous vein appears patent and compressible segmentally. Normal flow patterns left common f emoral vein Ordering Physician: Hardeep Solis Chi Referring Physician: Matthew Samaniego Performed By: Lea Gardiner RDCS, RVT
== END | disposition home or self-care (01) ==
LOC: CVS 08:46
PROVIDERS: PCP Internal Medicine Cardiovascular Disease; Visit Provider Family Medicine Geriatric Medicine
DX: R22.41 Localized swelling, mass and lump, right lower limb (principal)
CPT/HCPCS: 93971

== ENCOUNTER → 2022-05-17 | Outpatient (CLI) | payer MEDICARE, SELFPAY ==
--- NOTE | 2022-05-17 12:57 | CT_ITS ---
STUDY: CT PELVIS WITH CONTRAST REASON FOR EXAM: Male, 76 years old. Left inferior medial gluteal ulceration. RADIATION DOSAGE (If Supplied By Facility): CTDIvol = ( 27.95 ) mGy, DLP = ( 1241.06 ) mGycm TECHNIQUE: Transaxial imaging of the pelvis was performed without oral contrast. 100 CC ISOVUE 370 was administered intravenously. Multiplanar coronal and sagittal images were reformatted. Individualized dose optimization techniques were used for this CT. COMPARISON: None. FINDINGS: Diffuse bladder wall thickening. The prostate is enlarged. It measures 5.9 cm x 6.3 cm. This causing the patient''s bladder base. There is a 1.7 cm cyst in the lateral inferior aspect of the right kidney. There is also evidence of a 2 adjacent cysts in the lateral inferior aspect of the right kidney measuring 5.9 cm x 3.2 cm. Normal visualized small intestine. Normal visualized colon. There is no pelvic fluid. There is no pelvic lymphadenopathy or mass lesion. There is diffuse atherosclerotic calcification of the pelvic arteries. There is evidence of a ulceration along the medial aspect of the posterior gluteal region on the left side. This measures 1.5 cm x 1.5 cm. No evidence of abscess is seen at this time. There are diffuse degenerative changes of the visualized lumbar spine. Nondisplaced fractures of the superior and inferior pubic ramus on the left side. Nondisplaced fracture along the inferior pubic ramus on the right side as well as the superior pubic ramus. The patient is status post right total hip replacement. CT/Pelvis WITH IV Contrast IMPRESSION: Healing bilateral superior and inferior pubic rami fractures. Ulceration overlying the medial aspect of the left gluteal region with evidence of increased soft tissue markings in the subcutaneous fat although no focal abscess is seen at this time. Right renal cysts. Electronically Signed: Kenneth Stoner MD at 13:58 EST ,
== END | disposition home or self-care (01) ==
LOC: CT 12:56
PROVIDERS: PCP Internal Medicine Cardiovascular Disease; Referring Provider Family Medicine Geriatric Medicine; Visit Provider Family Medicine Geriatric Medicine
DX: S32.511D Fracture of superior rim of right pubis, subsequent encounter for fracture with routine healing (principal); S32.512D Fracture of superior rim of left pubis, subsequent encounter for fracture with routine healing; S32.591D Other specified fracture of right pubis, subsequent encounter for fracture with routine healing; S32.592D Other specified fracture of left pubis, subsequent encounter for fracture with routine healing; X58.XXXD Exposure to other specified factors, subsequent encounter
CPT/HCPCS: 72193; Q9967

== ENCOUNTER → 2022-05-20 | Outpatient (REF) | payer MEDICARE, SELFPAY ==
[2022-05-20 08:53] LABS: Hematocrit 34.2 % (40-54); Hemoglobin 10.6 g/dL (13.0-16.5); Mean Corpuscular Hgb 25.9 pg (27.0-32.0); Mean Corpuscular Volume 83.4 fL (80-94); Mean Platelet Vol. 12.2 fl (6.2-12.0); POSITIVE MORPHOLOGY YES; Platelet Count 393 K/mm3 (150-450); RBC Distribution Width CV 23.8 % (11.6-14.6); RBC Distribution Width SD 67.3 fl (35.1-43.9); White Blood Count 9.4 K/mm3 (4.4-11.0)
[2022-05-20 08:55] LABS: Scan Indicated on CBC? Y/N YES- FLAGS NOTED
[2022-05-20 09:10] LABS: Vitamin B12 384 pg/mL (211-911); Vitamin D,25 Hydroxy 41.7 ng/mL
[2022-05-20 09:31] LABS: Anion Gap 9 (5-15); BUN 22 mg/dL (7-18); BUN/Creat Ratio 30.6 RATIO (10-20); Calcium,Total 9.1 mg/dL (8.5-10.1); Chloride 101 mmol/L (98-107); Cholesterol 116 mg/dL (200); Creatinine, Serum 0.72 mg/dL (0.70-1.30); EST Glomerular Filtration Rate 113 mL/min (>60); Est Glom Filt Rate - Afr Amer 137 mL/min (>60); Glucose 90 mg/dL (74-106); High Density Lipoprotein 45 mg/dL; Potassium 4.7 mmol/L (3.5-5.1); Sodium Level 135 mmol/L (136-145); Thyroid Stim Hormone (TSH) 4.41 uIU/mL (0.358-3.74); Triglycerides 83 mg/dL; Very Low Density Lipoprotein 17 mg/dL (5-40)
== END ==
LOC: OLS.SW 04:00
PROVIDERS: PCP Internal Medicine Cardiovascular Disease; Referring Provider Internal Medicine; Visit Provider Internal Medicine
DX: I11.0 Hypertensive heart disease with heart failure (principal); I50.9 Heart failure, unspecified; E55.9 Vitamin D deficiency, unspecified; R53.83 Other fatigue; E78.5 Hyperlipidemia, unspecified; E03.9 Hypothyroidism, unspecified
CPT/HCPCS: 36415; 80048; 80061; 82306; 82607; 84443; 85027

== ENCOUNTER → 2022-05-28 | Outpatient (REF) | payer MEDICARE, SELFPAY ==
[2022-05-28 09:01] LABS: Absolute Lymphocyte Count 1.69 X10^3/uL (0.83-4.51); Absolute Neutrophil Count 7.4 X10^3/uL (2.0-7.7); Basophil# 0.06 X10^3/uL; Basophil% 0.6 % (0-1); Eosinophil# 0.43 X10^3/uL; Hematocrit 34.3 % (40-54); Hemoglobin 10.6 g/dL (13.0-16.5); Lymphocyte # 1.69 X10^3/ul (0.83-4.51); Lymphocyte % 15.5 % (19-41); Mean Corp Hgb Conc 30.9 g/dL (32-36); Mean Corpuscular Hgb 25.4 pg (27.0-32.0); Mean Corpuscular Volume 82.1 fL (80-94); Mean Platelet Vol. 10.9 fl (6.2-12.0); Monocyte# 1.25 X10^3/uL; Monocyte% 11.5 % (0-10); NRBC Flagged by Analyzer 5.2 % (0-5); Neutrophil # 7.39 X10^3/uL (2.7-7.7); Neutrophil % 67.9 % (47-70); POSITIVE COUNT YES; POSITIVE MORPHOLOGY YES; Platelet Count 554 K/mm3 (150-450); RBC Distribution Width CV 22.2 % (11.6-14.6); RBC Distribution Width SD 64.1 fl (35.1-43.9); Red Blood Count 4.18 M/mm3 (4.6-6.2); White Blood Count 10.9 K/mm3 (4.4-11.0)
[2022-05-28 09:07] LABS: Anion Gap 9 (5-15); BUN 19 mg/dL (7-18); BUN/Creat Ratio 24.8 RATIO (10-20); Calcium,Total 9.2 mg/dL (8.5-10.1); Chloride 102 mmol/L (98-107); Creatinine, Serum 0.77 mg/dL (0.70-1.30); Differential Indicated SCAN CRITERIA MET; EST Glomerular Filtration Rate 105 mL/min (>60); Est Glom Filt Rate - Afr Amer 128 mL/min (>60); Glucose 132 mg/dL (74-106); Magnesium 2.2 mg/dL (1.6-2.6); Potassium 3.7 mmol/L (3.5-5.1); Sodium Level 138 mmol/L (136-145)
[2022-05-28 09:34] LABS: Differential Comment SCANNED
[2022-05-28 09:35] LABS: Anisocytosis 2+; Basophilic Stippling 1+; Hypochromasia 1+; Macrocytosis 1+; Microcytosis 1+; Polychromasia 1+; Target Cells 1+
== END ==
LOC: OLS.SW 05:00
PROVIDERS: PCP Internal Medicine Cardiovascular Disease; Visit Provider Internal Medicine
DX: M62.81 Muscle weakness (generalized) (principal); I50.32 Chronic diastolic (congestive) heart failure; J96.01 Acute respiratory failure with hypoxia; J44.9 Chronic obstructive pulmonary disease, unspecified
CPT/HCPCS: 36415; 80048; 83735; 85025

== ENCOUNTER → 2022-06-04 | Outpatient (REF) | payer MEDICARE, SELFPAY ==
[2022-06-04 08:31] LABS: Anion Gap 9 (5-15); BUN 19 mg/dL (7-18); BUN/Creat Ratio 24.5 RATIO (10-20); Calcium,Total 8.7 mg/dL (8.5-10.1); Chloride 98 mmol/L (98-107); Creatinine, Serum 0.78 mg/dL (0.70-1.30); EST Glomerular Filtration Rate 104 mL/min (>60); Est Glom Filt Rate - Afr Amer 126 mL/min (>60); Glucose 86 mg/dL (74-106); Magnesium 2.2 mg/dL (1.6-2.6); Potassium 3.8 mmol/L (3.5-5.1); Sodium Level 132 mmol/L (136-145)
[2022-06-04 08:35] LABS: Absolute Lymphocyte Count 1.98 X10^3/uL (0.83-4.51); Absolute Neutrophil Count 6.7 X10^3/uL (2.0-7.7); Basophil# 0.16 X10^3/uL; Basophil% 1.5 % (0-1); Eosinophil# 0.43 X10^3/uL; Eosinophils% 3.9 % (0-5); Hematocrit 33.2 % (40-54); Hemoglobin 10.5 g/dL (13.0-16.5); Lymphocyte # 1.98 X10^3/ul (0.83-4.51); Mean Corp Hgb Conc 31.6 g/dL (32-36); Mean Corpuscular Hgb 26.1 pg (27.0-32.0); Mean Corpuscular Volume 82.6 fL (80-94); Mean Platelet Vol. 11.5 fl (6.2-12.0); Monocyte# 1.64 X10^3/uL; Monocyte% 14.9 % (0-10); NRBC Flagged by Analyzer 5.8 % (0-5); Neutrophil # 6.74 X10^3/uL (2.7-7.7); Neutrophil % 61.3 % (47-70); POSITIVE COUNT YES; POSITIVE DIFFERENTIAL YES; POSITIVE MORPHOLOGY YES; Platelet Count 411 K/mm3 (150-450); RBC Distribution Width CV 22.2 % (11.6-14.6); RBC Distribution Width SD 64.1 fl (35.1-43.9); Red Blood Count 4.02 M/mm3 (4.6-6.2)
[2022-06-04 08:41] LABS: Differential Indicated SCAN CRITERIA MET
[2022-06-04 09:19] LABS: Anisocytosis 3+; Differential Comment SCANNED; Target Cells 3+
[2022-06-04 09:20] LABS: Hypochromasia 3+; Schistocytes 1+
[2022-06-06 09:17] LABS: Pathologist Review Reviewed
== END ==
LOC: OLS.SW 05:00
PROVIDERS: PCP Internal Medicine Cardiovascular Disease; Referring Provider Internal Medicine; Visit Provider Internal Medicine
DX: J44.9 Chronic obstructive pulmonary disease, unspecified (principal); E03.9 Hypothyroidism, unspecified; J96.01 Acute respiratory failure with hypoxia
CPT/HCPCS: 36415; 80048; 83735; 85025

== ENCOUNTER → 2022-06-10 | Outpatient (REF) | payer MEDICARE, SELFPAY ==
[2022-06-10 09:22] LABS: Thyroid Stim Hormone (TSH) 1.06 uIU/mL (0.358-3.74)
== END ==
LOC: OLS.SW 04:00
PROVIDERS: PCP Internal Medicine Cardiovascular Disease; Referring Provider Internal Medicine; Visit Provider Internal Medicine
DX: E03.9 Hypothyroidism, unspecified (principal)
CPT/HCPCS: 36415; 84443

== ENCOUNTER → 2022-06-17 | Outpatient (REF) | payer MEDICARE, SELFPAY ==
[2022-06-17 07:59] LABS: Absolute Neutrophil Count 9.8 X10^3/uL (2.0-7.7); Basophil# 0.22 X10^3/uL; Basophil% 1.5 % (0-1); Eosinophil# 1.07 X10^3/uL; Eosinophils% 7.3 % (0-5); Hematocrit 35.1 % (40-54); Hemoglobin 10.9 g/dL (13.0-16.5); Lymphocyte % 11.6 % (19-41); Mean Corp Hgb Conc 31.1 g/dL (32-36); Mean Corpuscular Volume 83.8 fL (80-94); Mean Platelet Vol. 11.5 fl (6.2-12.0); Monocyte# 1.75 X10^3/uL; Monocyte% 11.9 % (0-10); NRBC Flagged by Analyzer 5.9 % (0-5); Neutrophil # 9.81 X10^3/uL (2.7-7.7); POSITIVE COUNT YES; POSITIVE DIFFERENTIAL YES; POSITIVE MORPHOLOGY YES; Platelet Count 511 K/mm3 (150-450); RBC Distribution Width CV 22.6 % (11.6-14.6); RBC Distribution Width SD 64.7 fl (35.1-43.9); Red Blood Count 4.19 M/mm3 (4.6-6.2); White Blood Count 14.7 K/mm3 (4.4-11.0)
[2022-06-17 08:13] LABS: ALB/GLOB Ratio 0.7 RATIO (0.9-2.4); AST(SGOT) 37 U/L (15-37); Alanine Aminotransfer ALT/SGPT 28 U/L (16-61); Albumin, Serum 3.2 g/dL (3.2-5.0); Alkaline Phosphatase 83 U/L (45-117); Anion Gap 8 (5-15); BUN 23 mg/dL (7-18); BUN/Creat Ratio 28.1 RATIO (10-20); Calcium,Total 9.2 mg/dL (8.5-10.1); Chloride 102 mmol/L (98-107); Creatinine, Serum 0.82 mg/dL (0.70-1.30); Differential Indicated SCAN CRITERIA MET; EST Glomerular Filtration Rate 98 mL/min (>60); Est Glom Filt Rate - Afr Amer 118 mL/min (>60); Globulin 4.6 g/dL (2.2-4.2); Glucose 98 mg/dL (74-106); Magnesium 2.4 mg/dL (1.6-2.6); Potassium 3.8 mmol/L (3.5-5.1); Protein, Total 7.8 g/dL (6.4-8.2); Sodium Level 137 mmol/L (136-145)
[2022-06-17 08:37] LABS: Basophilic Stippling 2+; Howell-Jolly Body 1+; Platelet Estimate SLT INC (ADEQ); Polychromasia 1+
[2022-06-17 08:38] LABS: Anisocytosis 2+
[2022-06-17 08:40] LABS: Target Cells 1+
[2022-06-17 14:10] LABS: Pathologist Review Reviewed
== END ==
LOC: OLS.SW 05:00
PROVIDERS: PCP Internal Medicine Cardiovascular Disease; Visit Provider Internal Medicine
DX: I50.32 Chronic diastolic (congestive) heart failure (principal); J44.9 Chronic obstructive pulmonary disease, unspecified; J96.01 Acute respiratory failure with hypoxia
CPT/HCPCS: 36415; 80053; 83735; 85025